=== PATIENT | female | born 1950 | race Caucasian/White ===

== ENCOUNTER 2019-05-15 10:19 | Outpatient (CLI) | payer MEDICARE, SELFPAY ==
--- NOTE | ~2019-05-15 | MM_ITS ---
EXAMINATION: MM screening [facility] BI w mynor HISTORY: Screening mammogram TECHNIQUE: Craniocaudal and mediolateral oblique 3-D tomosynthesis images were obtained and synthetic 2-D images were generated. CAD analysis was submitted and interpreted. COMPARISON: Comparison to multiple prior studies sequentially, with oldest reviewed study dated 03/2016. BREAST PARENCHYMAL COMPOSITION: There are scattered areas of fibroglandular density. FINDINGS: There is no evidence of suspicious mass, calcification, or architectural distortion to sugg est malignancy in either breast. There has been no suspicious interval change. IMPRESSION: 1. No mammographic evidence of malignancy. 2. Recommend routine screening mammography in one year. BI-RADS Category 1: Negative Reviewed, dictated and finalized at location A. OILER
== END 2019-05-15 10:20 | disposition home or self-care (01) ==
LOC: ANHIMG 10:24
PROVIDERS: PCP Internal Medicine; Visit Provider Internal Medicine
DX: Z12.31 Encounter for screening mammogram for malignant neoplasm of breast (principal)
CPT/HCPCS: 77063; 77067

== ENCOUNTER 2020-05-17 09:46 | Outpatient (CLI) | payer MEDICARE, SELFPAY ==
--- NOTE | ~2020-05-17 | MM_ITS ---
EXAMINATION: MM screening [facility] BI w mynor HISTORY: Screening mammogram TECHNIQUE: Craniocaudal and mediolateral oblique 3-D tomosynthesis images were obtained and synthetic 2-D images were generated. CAD analysis was submitted and interpreted. COMPARISON: May 15, 2019, May 02, 2018, April 26, 2017 bilateral digital screening mammogr am examinations BREAST PARENCHYMAL COMPOSITION: The breasts are almost entirely fatty. FINDINGS: There is no evidence of suspicious mass, calcification, or architectural distortion to sugg est malignancy in either breast. There has been no suspicious interval change. IMPRESSION: 1. No mammographic evidence of malignancy. 2. Recommend routine screening mammography in one year. BI-RADS Category 1: Negative Reviewed, dictated and finalized at location A. RESCENT SOLUTION MIXER
== END 2020-05-17 09:47 | disposition home or self-care (01) ==
LOC: ANHIMG 09:48
PROVIDERS: PCP Internal Medicine; Visit Provider Internal Medicine
DX: Z12.31 Encounter for screening mammogram for malignant neoplasm of breast (principal)
CPT/HCPCS: 77063; 77067

== ENCOUNTER 2021-08-09 15:04 | Outpatient (CLI) | payer MEDICARE, SELFPAY ==
--- NOTE | ~2021-08-09 | MM_ITS ---
EXAMINATION: MM screening [facility] BI w mynor HISTORY: Screening mammogram TECHNIQUE: Craniocaudal and mediolateral oblique 3-D tomosynthesis images were obtained and synthetic 2-D images were generated. CAD analysis was submitted and interpreted. COMPARISON: 05/17/2020, 05/15/2019 BREAST PARENCHYMAL COMPOSITION: There are scattered areas of fibroglandular density. FINDINGS: Scattered benign-appearing calcifications are present. There is no suspicious mass, calcifi cation, or architectural distortion to suggest malignancy in either breast. There has been no suspici ous interval change. IMPRESSION: 1. No mammographic evidence of malignancy. 2. Recommend routine screening mammography in one year. BI-RADS Category 2: Benign finding(s). Reviewed, dictated and finalized at location A.
== END 2021-08-09 15:05 | disposition home or self-care (01) ==
PROVIDERS: PCP Internal Medicine; Visit Provider Internal Medicine
DX: Z12.31 Encounter for screening mammogram for malignant neoplasm of breast (principal)
CPT/HCPCS: 77063; 77067

== ENCOUNTER 2021-08-20 20:07 | Emergency (ER) | payer MEDICARE, SELFPAY ==
[2021-08-20] VITALS (16 sets, daily range): BP systolic 132–173; BP diastolic 45–69; PULSE 71–88; RESP 12–24; TEMP 36.6; O2SAT 96–100
--- NOTE | ~2021-08-20 | XR_ITS ---
XR chest 2V 08/20/2021 21:02 Indication: Midsternal chest pain Procedure: 2 view chest Comparison: No prior studies for comparison. Findings: There is a large gastric air-fluid level. There are multiple small bowel air-fluid levels i n the upper abdomen. There are cholecystectomy clips. There are left basilar infiltrates. There is ca lcified granuloma right mid thorax. Heart size normal. No edema or pneumothorax. Impression: 1: Left basilar infiltrates may represent atelectasis and/or pneumonia. 2: Multiple air-fluid levels of the stomach and proximal small bowel. Considerations include ileus a nd partial small bowel obstruction, although incompletely visualized. Reviewed, dictated and finalized at location A. Impression: 1: Left basilar infiltrates may represent atelectasis and/or pneumonia. 2: Multiple air-fluid levels of the stomach and proximal small bowel. Consider ations include ileus and partial small bowel obstruction, although incompletely visualized.
--- NOTE | 2021-08-20 20:46 | ECG_ITS ---
Measurements Intervals [place] Rate: 78 P: 25 WV: 163 QRS: -16 QRSD: 92 T: 57 QT: 353 QTc: 403 Interpretive Statements SINUS RHYTHM BORDERLINE ST-T WAVE ABNORMALITY- LAT/HIGH LAT LEADS INFERIOR INFARCT, AGE INDETERMINATE BASELINE ARTIFACT- I, III, AVR, AVL ABNORMAL ECG Electronically Signed On 08-21-2021 6:31:50 CDT by Apollo Montaño D.O.
--- NOTE | 2021-08-20 20:55 | ED.CHESTPAIN ---
HPI - Chest Pain General Chief Complaint: Chest Pain Stated Complaint: chest pain, radiates down right arm Time Seen by Provider: 08/20/21 20:39 Source: patient History of Present Illness HPI narrative: Patient presents with chest pain. Reports that her chest pain started around 6 PM this evening lasted approximately 10 minutes and then resolved. She said it was an ache pain that radiated to her right arm there are no clear aggravating or alleviating factors. It was associated with shortness of breath denies any nausea vomiting or diaphoresis. Reports she is currently without any symptoms. She has been in her usual state of health prior to this evening denies any recent fevers cough, congestion. Denies any urinary symptoms. Related Data Allergies Allergy/AdvReac Type Severity Reaction Status Date / Time acetaminophen Allergy Unknown Unverified 08/27/14 15:30 adhesive Allergy Unknown Unverified 08/27/14 15:30 lisinopril Allergy Unknown Unverified 08/27/14 15:30 propoxyphene Allergy Unknown Unverified 08/27/14 15:30 Review of Systems Review of Systems: CONSTITUTIONAL: Denies fever, chills, or sweats. EYES: Denies visual changes, redness, or discharge. ENT: Denies rhinorrhea, congestion, sore throat, or otalgia. CARDIOVASCULAR: Denies palpitations, or edema. RESPIRATORY: Denies cough GASTROINTESTINAL: Denies abdominal pain, nausea, vomiting, or diarrhea. GENITOURINARY: Denies dysuria or hematuria. SKIN: Denies rash or itching. MUSCULOSKELETAL: Denies back pain, joint pain, or myalgia. NEUROLOGIC: Denies headache, numbness, dizziness, or weakness. PSYCHIATRIC: Denies anxiety or depression. All systems reviewed & are unremarkable except as noted in HPI and below Exam Narrative: GENERAL: Well-appearing, well-nourished, and in no acute distress. HEAD: Normocephalic, atraumatic. EYES: PERRLA and EOMI. ENT: Nares clear, no rhinorrhea or epistaxis. Mucous membranes moist. NECK: Supple. No masses. No JVD CHEST: Clear to auscultation. No respiratory distress. No wheezes rales or rhonchi HEART: Regular rate and rhythm. No murmur heard. Normal peripheral pulses. ABDOMEN: Soft, nontender, nondistended, normal active bowel sounds. EXTREMITIES: Normal range of motion. No edema. SKIN: Warm, dry, no rash. NEURO: No focal deficits. Alert and oriented x3. PSYCH: Normal mood and affect. Course Reevaluation(s) Reevaluation #1: Patient remains asymptomatic is requesting go home. Work-up was reviewed with the patient and given negative work-up continue outpatient valuation PCM is reasonable. Patient comes outpatient plan. Date: 08/21/21 Time: 00:52 Vital Signs Vital signs: Vital Signs Temperature 36.6 C 08/20/21 20:13 Pulse Rate 79 08/20/21 20:13 Respiratory Rate 18 08/20/21 20:13 Blood Pressure 164/63 H 08/20/21 20:13 Pulse Oximetry 100 08/20/21 20:13 Oxygen Delivery Room Air 08/20/21 20:13 Temperature 36.6 C 08/20/21 20:13 Pulse Rate 75 08/21/21 01:01 Respiratory Rate 18 08/21/21 01:01 Blood Pressure 118/49 L 08/21/21 01:01 Pulse Oximetry 98 08/21/21 01:01 Oxygen Delivery Room Air 08/20/21 20:13 MDM - Chest Pain MDM Narrative Medical decision making narrative: H&P as above, vss, pt looks clinically well, exam with clear lungs, labs clinic unremarkable to include delta troponin, img without acute process, additional labs/img considered, symptomatic relief available as needed, on reevaluation pt continues to looks clinically well. Symptoms remain unclear etiology however given brief duration and negative delta troponin low concern for ACS PE dissection pneumothorax pneumonia. plan to tx/monitor as op w/ pcm f/u findings/plan discussed with pt, pt agree/comfortable with plan, return precautions given Lab Data Result diagrams: 08/20/21 20:47 08/20/21 21:41 Labs: Lab Results 08/20/21 08/20/21 08/20/21 Range/Units 20:47 20:47 21:41 WBC 8.6 (4
[2021-08-20 20:56] LABS: Basophils Percent Auto 0.3 % (0.2-1.2); Hematocrit 41.8 % (37.0-47.0); Hemoglobin 12.9 g/dL (12.0-15.0); Immature Granulocyte Absolute 0.02 K/mm3 (0.00-0.031); Immature Granulocyte Percent A 0.2 % (0-0.5); Lymphocytes Absolute Auto 1.86 K/mm3 (0.9-3.2); Lymphocytes Percent Auto 21.7 % (18.3-44.2); Mean Corpuscular HGB Conc 30.9 g/dl (32-36); Mean Corpuscular Hemoglobin 28.5 pg (26-34); Mean Corpuscular Volume 92.3 fl (80-100); Mean Platelet Volume 10.4 fl (7.4-10.4); Monocytes Absolute Auto 0.4 K/mm3 (0.1-0.6); Neutrophils Absolute Auto 6.3 K/mm3 (1.3-6.7); Neutrophils Percent Auto 72.8 % (45.5-73.1); Platelet Count Result 265 k/mm3 (150-375); Red Blood Count 4.53 M/mm3 (4.2-5.4); White Blood Count 8.6 K/mm3 (4.5-10.0)
[2021-08-20 21:06] LABS: INR 2.4; Prothrombin Time 25.7 Seconds (11.1-14.7)
[2021-08-20 21:08] LABS: Partial Thromboplastin Time 74.1 SECONDS (22.3-36.8)
[2021-08-20 21:14] LABS: Troponin I < 0.012 ng/mL (0.000-0.034)
[2021-08-20 22:12] LABS: Alanine Aminotransferase 21 U/L (6-35); Albumin Level 3.8 g/dL (3.5-5.1); Alkaline Phosphatase 80 U/L (38-126); Anion Gap 6 mmol/L (8-16); Aspartate Amino Transferase 43 U/L (14-36); Bilirubin,Total 0.2 mg/dL (0.2-1.3); Blood Urea Nitrogen 27 mg/dL (7-17); Calcium 9.3 mg/dL (8.4-10.2); Carbon Dioxide 28 mmol/L (22-30); Chloride 105 mmol/L (98-107); Estimated CRCL calculation 35 ml/min; Estimated Glomerular Filt Rate 40; Glucose 104 mg/dL (65-110); Potassium 5.1 mmol/L (3.4-5.0); Sodium 139 mmol/L (137-145)
[2021-08-20 22:33] LABS: Lipase 207 U/L (23-300)
[2021-08-21 00:33] LABS: Troponin I < 0.012 ng/mL (0.000-0.034)
[2021-08-21 01:01] VITALS: BP 118/49; PULSE 75; RESP 18; O2SAT 98
== END 2021-08-21 01:00 | disposition home or self-care (01) ==
PROVIDERS: Emergency Provider Emergency Medicine; PCP Internal Medicine
DX: R07.9 Chest pain, unspecified (principal); R94.31 Abnormal electrocardiogram [ECG] [EKG]; R91.8 Other nonspecific abnormal finding of lung field; R93.5 Abnormal findings on diagnostic imaging of other abdominal regions, including retroperitoneum
CPT/HCPCS: 36415; 71046; 80053; 83690; 84484; 85025; 85610; 85730; 93005; 99284

== ENCOUNTER 2022-07-31 15:31 | Outpatient (CLI) | payer MEDICARE, SELFPAY ==
--- NOTE | ~2022-07-31 | MM_ITS ---
EXAMINATION: MM screening [facility] BI w mynor HISTORY: Screening mammogram TECHNIQUE: Craniocaudal and mediolateral oblique 3-D tomosynthesis images were obtained and synthetic 2-D images were generated. CAD analysis was submitted and interpreted. COMPARISON: 08/09/2021, 05/17/2020, 05/15/2019 BREAST PARENCHYMAL COMPOSITION: The breasts are almost entirely fatty. FINDINGS: No suspicious mass, calcification, or architectural distortion are identified in either paolo ast to suggest malignancy. There has been no suspicious interval change. IMPRESSION: 1. No mammographic evidence of malignancy. 2. Recommend routine screening mammography in one year. BI-RADS Category 1: Negative Reviewed, dictated and finalized at location A.
== END 2022-07-31 15:32 | disposition home or self-care (01) ==
LOC: ANHIMG 15:34
PROVIDERS: PCP Internal Medicine; Visit Provider Internal Medicine
DX: Z12.31 Encounter for screening mammogram for malignant neoplasm of breast (principal)
CPT/HCPCS: 77063; 77067

== ENCOUNTER 2023-08-04 13:39 | Outpatient (CLI) | payer MEDICARE, SELFPAY ==
--- NOTE | ~2023-08-04 | MM_ITS ---
EXAMINATION: MM screening [facility] BI w mynor HISTORY: Screening mammogram TECHNIQUE: Craniocaudal and mediolateral oblique 3-D tomosynthesis images were obtained and synthetic 2-D images were generated. CAD analysis was submitted and interpreted. COMPARISON: 07/31/2022, 08/09/2021 bilateral screening mammogram examinations BREAST PARENCHYMAL COMPOSITION: The breasts are almost entirely fatty. FINDINGS: There is no evidence of suspicious mass, calcification, or architectural distortion to sugg est malignancy in either breast. There has been no suspicious interval change. IMPRESSION: 1. No mammographic evidence of malignancy. 2. Recommend routine screening mammography in one year. BI-RADS Category 1: Negative Reviewed, dictated and finalized at location A.
== END 2023-08-04 13:40 | disposition home or self-care (01) ==
LOC: ANHIMG 13:44
PROVIDERS: PCP Internal Medicine; Visit Provider Internal Medicine
DX: Z12.31 Encounter for screening mammogram for malignant neoplasm of breast (principal)
CPT/HCPCS: 77063; 77067

== ENCOUNTER 2024-01-29 12:38 | Emergency (ER) | payer OTHER, SELFPAY ==
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
[2024-01-29 12:49] VITALS: BP 152/66; PULSE 84; RESP 16; TEMP 36.3; O2SAT 98
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
== END 2024-01-29 14:49 | disposition home or self-care (01) ==
PROVIDERS: Emergency Provider Emergency Medicine; PCP Internal Medicine
DX: S89.92XA Unspecified injury of left lower leg, initial encounter (principal); S89.91XA Unspecified injury of right lower leg, initial encounter; N18.9 Chronic kidney disease, unspecified; M32.9 Systemic lupus erythematosus, unspecified; Z96.653 Presence of artificial knee joint, bilateral; Z85.810 Personal history of malignant neoplasm of tongue; Z90.49 Acquired absence of other specified parts of digestive tract; V49.50XA Passenger injured in collision with unspecified motor vehicles in traffic accident, initial encounter
CPT/HCPCS: 73564; 99284

== ENCOUNTER 2024-08-10 09:34 | Outpatient (CLI) | payer MEDICARE, SELFPAY ==
--- NOTE | ~2024-08-10 | MM_ITS ---
EXAMINATION: MM screening [facility] BI w mynor HISTORY: Screening TECHNIQUE: Craniocaudal and mediolateral oblique 3-D tomosynthesis images were obtained and synthetic 2-D images were generated. CAD analysis was submitted and interpreted. COMPARISON: Comparison to multiple prior studies sequentially, with oldest reviewed study dated 11/2018. BREAST PARENCHYMAL COMPOSITION: Not dense: There are scattered areas of fibroglandular density. FINDINGS: There is no evidence of suspicious mass, calcification, or architectural distortion to sugg est malignancy in either breast. There has been no suspicious interval change. IMPRESSION: 1. No mammographic evidence of malignancy. 2. Recommend routine screening mammography in one year. BI-RADS Category 1: Negative Reviewed, dictated and finalized at location B.
--- OUTSIDE RECORDS SUMMARY | 2024-08-10 09:46 | XMS_ITS | CONTINUITY OF CARE DOCUMENT ---
Author Name víctorvíctor Address Unknown Organization [facility] Address [id number] [place] [address] [address] [place] [address] Phone [phone] Care Team Providers Care Bricklayer Sewer Name Role Phone Gamal Richardson MD Unavailable Rachana DIAZ, Prema Unavailable OMAR HARRIS MD Unavailable [phone] INSURANCE PROVIDERS Payer name Policy type / Coverage type [place] red green party ID [employer] Commercial insuran ce company [id number] [place] [employer] Medicare [id number] SELF PAY
== END 2024-08-10 09:35 | disposition home or self-care (01) ==
LOC: ANHIMG 09:37
PROVIDERS: PCP Internal Medicine; Visit Provider Internal Medicine
DX: Z12.31 Encounter for screening mammogram for malignant neoplasm of breast (principal)
CPT/HCPCS: 77063; 77067

== ENCOUNTER 2025-02-28 17:41 | Outpatient (CLI) | payer MEDICARE, SELFPAY | END 2025-02-28 17:42 | disposition home or self-care (01) | LOC: ANHLAB 17:42 | PROVIDERS: PCP Internal Medicine; Visit Provider Internal Medicine | DX: D68.62 Lupus anticoagulant syndrome (principal) | CPT/HCPCS: 36415 ==

== ENCOUNTER 2025-03-01 17:32 | Outpatient (CLI) | payer MEDICARE, SELFPAY ==
[2025-03-01 18:01] LABS: INR 1.6; Prothrombin Time 18.9 Seconds (11.1-14.7)
--- OUTSIDE RECORDS SUMMARY | 2025-03-01 19:07 | XMS_ITS | Encounter Summary ---
Author Organization [facility] Care Team Providers Care Staffing Specialist Name Role Phone Kasi Moya MD Primary Care Provider + Tre Alvarado MD Primary Care Provider +1-3 Kasi Moya MD Primary Care Provider + Tre Alvarado MD Primary Care Provider +1-3 Kasi Moya MD Primary Care Provider + Tre Alvarado MD Primary Care Provider +1-3 Kasi Moya MD Primary Care Provider + Tre Alvarado MD Primary Care Provider +1-3 Kasi Moya MD Primary Care Provider + Tre Alvarado MD Primary Care Provider +1-3 aKsi Moya MD Primary Care Provider + Tre Alvarado MD Primary Care Provider +1- Kasi Moya MD Primary Care Provider + Tre Alvarado MD Primary Care Provider +1-3 Kasi Moya MD Primary Care Provider + Martin Mccarthy MD Unavailable Judit Matthews LPN Unavailable [phone] Edel Luz Primary Care Provide r Kasi Moya MD Primary Care Provider + Encounter Details Date Type Department Care Team (Latest Contact Info) Description 03/28/2016 Orders Only [facility]IN[facility] ProviderRajendra MD [address] [place] [id number] Social History Tobacco Use Types Packs/Day Years Used Date Smoking Tobacco: Never Assessed Comments Unknown Sex and Gender Information Value Date Recorded Sex Assigned at Not on file Legal Sex Female 8:09 PM ARTISTIC ASSOCIATE Gender Identity Not on file Sexual Orientation Not on file documented as of this encounter Plan of Treatment Not on file documented as of this encounter Procedures Procedure Name Priority Date/Time Associated Diagnosis Comments SCAN - LABS 03/28/2016 12:00 AM ARTISTIC ASSOCIATE documented in this encounter Results * SCAN - LABS (03/28/2016 12:00 AM ARTISTIC ASSOCIATE) Narrative 03/28/2016 12:00 AM ARTISTIC ASSOCIATE Ordered by an unspecified provider. Historical Provider Final Res ult documented in this encounter Visit Diagnoses Not on filedocumented in this encounter Additional Health Concerns Infection Onset Date Last Indicated Resolved Time COVID: Suspected Comment:Removed after ID review. 07/11/2019 Norris Patterson 07/08/2019 07/08/2019 07/11/2019 9:38 AM C DT COVID: Suspected Comment:ID/IP Review - Isolation precautions have been cleared. Nehal March, FURNACE REPAIRER 07/09/2019 07/09/2019 07/09/2019 0 6:43 AM CDT COVID: Suspected 10/24/2022 10/24/2022 10/24/2022 10:49 AM CDT documented as of this encounter Care Teams Staffing Specialist Relationship Specialty Start Date End Date Kasi Moya MD [address] [place] [address] PCP - General 07/29/16 10/01/16 Tre Alvarado MD [address] [place] [address] PCP - General 10/02/16 10/07/16 Kasi Moya MD [address] [place] [address] PCP - General 10/08/16 11/26/16 Tre Alvarado MD [address] [place] [address] PCP - General 11/27/16 12/04/16 Kasi Moya MD [address] [place] [address] PCP - General 12/05/16 01/05/17 Tre Alvarado MD [address] [place] [address] PCP - General 01/06/17 01/06/17 Kasi Moya MD [address] [place] [address] PCP - General 01/07/17 02/25/17 Tre Alvarado MD [address] [place] [address] PCP - General 02/26/17 03/18/17 Kasi Moya MD [address] [place] [address] PCP - General 03/19/17 03/30/17 Tre Alvarado MD [address] [place] [address] PCP - General 03/31/17 04/02/17 Kasi Moya MD [address] [place] [address] PCP - General 04/03/17 04/03/17 Tre Alvarado MD [address] [facility] [address] [place] [address] PCP - General 04/04/17 04/07/17 Kasi Moya MD [address] [place] [address] PCP - General 04/08/17 07/03/17 Tre Alvarado MD [address] [facility] [address] [place] [address] PCP - General 07/04/17 08/12/17 Kasi Moya MD [address] [place] [address] PCP - General 08/13/17 09/09/19 Edel Luz PA [address] [place] [address] PCP - General 09/10/19 09/20/19 Kasi Moya MD [address] [place] [address] PCP - General Internal Medicine 09/21/19 Martin Mccarthy MD [id number] [place] [address] Referring Physician Transplant 09/09/18 Judit Matthews, ADOBE FLEX DEVELOPER [id number] [place] [address] Electronics Computer Mechanic 07/12/19 07/12/19 documented as of this encounter
--- OUTSIDE RECORDS SUMMARY | 2025-03-01 19:07 | XMS_ITS | Encounter Summary ---
Author Organization [facility] Healthcare Address [address] [place] [address] Care Team Providers Care Fisher Mussel Name Role Phone Kasi Moya MD Primary Care Provider + Martin Mccarthy MD Unavailable [phone] Judit Matthews LPN Unavailable [phone] Edel Luz Primary Care Provide r Kasi Moya MD Primary Care Provider + Encounter Details Date Type Department Care Team (Late st Contact Info) Description 07/08/2019 Documentation [facility] [address] [place] [address] Kunal Jean, ES Social History Tobacco Use Types Packs/Day Years Used Date Smoking Tobacco: Never Smokeless Tobacco: Never Alcohol Use Standard Drinks/Week Comments No 0 (1 standard drink = 0.6 oz pur e alcohol) PHQ-2 Answer Date Recorded PHQ-2 Score 0 11/12/2018 Comments Unknown Sex and Gender Information Value Date Recorded Sex Assigned at Not on file 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 Gender Identity Not on file Sexual Orientation Not on file documented as of this encounter Functional Status * Question Answer Date of Assessment Author MAP (mmHg) 98 07/11/2019 11:00 PM Judit Pizarro RN * Question Answer Date of Assessment Author BP Location Right arm 07/11/2019 11:00 PM Judit Pizarro RN BP Method Automatic 07/11/2019 11:00 PM Judit Pizarro RN * Castellano Fall Risk Question Answer Date of Assessment Author History of Falling 0 07/11/2019 8:00 PM Judit Marie RN Secondary Diagnosis 15 07/11/2019 8:00 PM Judit Weinberg RN Ambulatory Aids 0 07/11/2019 8:00 PM Judit Duong RN Intravenous Therapy/Heparin/Saline Lock 20 07/11/2019 8:00 PM Judit Marie RN Gait/Transferring 0 07/11/2019 8:00 PM Judit Marie RN Mental Status 15 07/11/2019 8:00 PM Judit Pizarro RN Auto Low/High - if selected proceed to interventions (retired) High risk-per unit/hospital protocol 07/11/2019 8:00 PM Judit Marie RN Castellano Fall Risk Score (Score >= 45 places fall precaution order) 50 07/11/2019 8:00 PM Judit Marie RN * Prabhjot Scale Question Answer Date of Assessment Author Sensory Perceptions 1 07/11/2019 8:00 PM Judit Weinberg RN Moisture 3 07/11/2019 8:00 PM Judit Marie RN Activity 1 07/11/2019 8:00 PM Judit Marie RN Mobility 1 07/11/2019 8:00 PM Judit Marie RN Nutrition 3 07/11/2019 8:00 PM Judit Marie RN Friction and Shear 1 07/11/2019 8:00 PM Judit Marie RN Prabhjot Scale Score 10 07/11/2019 8:00 PM Judit Marie RN * Fall Risk Interventions Question Answer Date of Assessment Author All Low Fall Interventions Applied No 07/11/2019 8:00 PM Judit Marie RN All Low Fall Interventions EXCEPT: Encourage to call for assistance;Call light in reach 07/11/2019 8:00 PM Judit Marie RN All Moderate Fall Interventions Applied No 07/11/2019 8:00 PM Judit Marie RN All Moderate Fall Risk Interventions EXCEPT: Gait belt at bedside;Remain with patient while toileting 07/11/2019 8:00 PM Judit Marie RN All High Fall Risk Interventions Applied No 07/11/2019 8:00 PM Judit Marie RN All High Risk Interventions EXCEPT: Bed alarm;Chair alarm 07/11/2019 8:00 PM Judit Marie RN Additional Interventions Applied Constant observation 07/11/2019 8:00 PM Judit Marie RN Reason For Exception(s) pt unable to use 020 8:00 PM Judit Marie RN Reason For Exception(s) bed rest and martinez 07/10 8:00 PM Judit Marie RN Reason For Exception(s) pt doesnt attemp t to exit bed 07/11/2019 8:00 PM Judit Marie RN * B.M.A.T. - Bedside Mobility Assessment Tool for Nurses Question Answer Date of Assessment Author Is patient able to participate in the BMAT? No 07/11/2019 6:00 PM Jackson Marie RN Reason patient is unable to participate in BMAT Inability to follow directions;Bed rest orders 07/11/2019 6:00 PM Jackson Marie RN BMAT Level Level 1 - Red 07/11/2019 6:00 PM Jackson Pizarro RN Level 1 Equipment Use friction reducin g devices 07/11/2019 6:00 PM Jackson Marie RN * Pressure Injury Prevention Question Answer Date of Assessment Author Pressure Ulcer Prevention Interventions Keep skin clean and dry (Sensory Perception/Moisture);U se pillows/wedge for positioning (Activity/Mobility) 07/11/2019 8:00 AM Jackson Marie RN Protective Foam Dressing Location Coccyx 07/10/2019 7:00 PM Rita Brewer RN * Integumentary Question Answer Date of Assessment Author Skin Color Appropriate for ethnicity 07/11/2019 8:00 PM Judit Marie RN Skin Condition/Temp Warm;Dry 07/11/2019 8 :00 PM Judit Marie RN Skin Integrity Other (Comment) 07/11/2019 8:00 AM Jackson Marie RN Skin Turgor Non-tenting 07/11/2019 8:00 PM Judit Marie RN Integumentary Additional Assessments Yes-Prabhjot 07/11/2019 8:00 PM Judit Marie RN Integumentary (WDL) X 07/11/2019 8 :00 PM Judit Marie RN Skin Location Right upper neck & LUE 0 8:00 PM Judit Marie RN * Question Answer Date of Assessment Author BP Location Right arm 07/11/2019 11:00 PM Judit Pizarro RN BP Method Automatic 07/11/2019 11:00 PM Judit Pizarro RN * Question Answer Date of Assessment Author LUE Edema No pitting 07/11/2019 8:00 AM Jackson Marie RN Edema Left upper extremity 07/11/2019 8:00 AM C DT Jackson Townsend, ES * Question Answer Date of Assessment Author Bed In Lowest Position Yes 07/11/2019 10:00 P M Judit Marie RN Bed Wheels Locked Yes 07/11/2019 10:00 PM Judit Marie RN * Fall Risk Interventions Question Answer Date of Assessment Author All Low Fall Interventions Applied No 07/11/2019 8:00 PM Judit Marie RN All Low Fall Interventions EXCEPT: Encourage to call for assistance;Call light in reach 07/11/2019 8:00 PM Judit Marie RN All Moderate Fall Interventions Applied No 07/11/2019 8:00 PM Judit Marie RN All Moderate Fall Risk Interventions EXCEPT: Gait belt at bedside;Remain with patient while toileting 07/11/2019 8:00 PM Judit Marie RN All High Fall Risk Interventions Applied No 07/11/2019 8:00 PM Judit Marie RN All High Risk Interventions EXCEPT: Bed alarm;Chair alarm 07/11/2019 8:00 PM Judit Marie RN Additional Interventions Applied Constant observation 07/11/2019 8:00 PM CDT Judit Townsend, ES Reason For Exception(s) pt unable to use 020 8:00 PM CDT Judit Townsend RN Reason For Exception(s) bed rest and martinez 07/10 8:00 PM NAINT Judit Townsend RN Reason For Exception(s) pt doesnt attemp t to exit bed 07/11/2019 8:00 PM CDT Judit Townsend RN * Question Answer Date of Assessment Author Skin Care Protective Foam Dressing 07/10/2019 7:00 PM Rita Brewer RN Hygiene Martinez care;Ariadna care 07/10/2019 7:00 PM C Rita Eason RN Oral Care Mouth swabbed 07/10/2019 7:00 PM Rita Márquez RN * ADL Screening Question Answer Date of Assessment Author Patient's Vision Adequate to Safely Complete Daily Activities Unable to assess 07/09/2019 5:00 PM Shital Charles NP Patient's Judgement Adequate to Safely Complete Daily Activities Unable to assess 07/09/2019 5:00 PM Carlo Charles NP Patient's Memory Adequate to Safely Complete Daily Activities Unable to assess 07/09/2019 5:00 PM Shital Charles NP Patient Able to Express Needs/Desires Unable to assess 07/09/2019 5:00 PM Shital Charles NP Dressing Unable to assess 07/09/2019 5:00 PM CDT Shital Posadas NP Grooming Unable to assess 07/09/2019 5:00 PM NAINT Shital Posadas NP Feeding Unable to assess 07/09/2019 5:00 PM NAINT Shital Posadas NP Bathing Unable to assess 07/09/2019 5:00 PM NAINT Shital Posadas NP Toileting Unable to assess 07/09/2019 5:00 PM NAINT Shital Posadas NP In/Out Bed Unable to assess 07/09/2019 5:00 PM NAINT Shital Posadas NP Walks in Home Unable to assess 07/09/2019 5:00 PM Shital Charles NP Weakness of Legs Unable to assess 07/09/2019 5:00 PM Shital Patel NP Weakness of Arms/Hands Unable to assess 07/09/2019 5:0 0 PM Shital Charles NP Hearing - Right Ear Functional 07/09/2019 5:00 PM Shital Ferrara NP Hearing - Left Ear Functional 07/09/2019 5:00 PM Shital Charles NP Dominant hand? Right 07/09/2019 5:00 PM Shital Vela NP Decline in ADLs in last 2 weeks? No 07/09/2019 5:00 PM Shital Charles NP * Therapy Consults Question Answer Date of Assessment Author PT Evaluation Needed 1 07/09/2019 5:00 PM Shital Patel NP OT Evaluation Needed 1 07/09/2019 5:00 PM Shital Patel NP CANE PACKER Evaluation Needed 1 07/09/2019 5:00 PM Shital Charles NP * Assistive Devices Question Answer Date of Assessment Author Assistive Devices/DME None 07/09/2019 5:00 PM Shital Charles NP documented as of this encounter Mental Status * Question Answer Entry Date Author Level of Consciousness Responds to pain; Responds to stimulation 07/11/2019 8:00 PM Judit Marie RN Orientation Unable to assess 07/11/2019 8:00 PM Judit Marie RN * Question Answer Entry Date Author Neuro (WDL) X 07/11/2019 8:00 PM Judit Marie RN * Question Answer Entry Date Author Feature 1: Acute Onset or Fluctuating Course Negative 07/09/2019 12:25 AM Katie Lutz NP Overall CAM-ICU Negative 07/09/2019 12:25 AM Katie Lutz NP documented in this encounter Plan of Treatment Not on file documented as of this encounter Visit Diagnoses Not on filedocumented in this encounter Additional Health Concerns Infection Onset Date Last Indicated Resolved Time COVID: Suspected Comment:Removed after ID review. 07/11/2019 Norris Celestinhoney 07/08/2019 07/08/2019 07/11/2019 9:38 AM C DT COVID: Suspected Comment:ID/IP Review - Isolation precautions have been cleared. Nehal March, HUMAN PERFORMANCE PROFESSOR 07/09/2019 07/09/2019 07/09/2019 0 6:43 AM CDT COVID: Suspected 10/24/2022 10/24/2022 10/24/2022 10:49 AM CDT documented as of this encounter Care Teams Fisher Mussel Relationship Specialty Start Date End Date Kasi Moya MD [address] [place] [address] PCP - General 08/13/17 09/09/19 Edel Luz PA [address] [place] [address] PCP - General 09/10/19 09/20/19 Kasi Moya MD [address] [place] [address] PCP - General Internal Medicine 09/21/19 Martin Mccarhty MD [address] [facility] [address] [place] [id number] Referring Physician Transplant 09/09/18 Judit Matthews LPN [address] [facility] [address] [place], [place] [id number] [place] [address] Buyer Agent 07/12/19 07/12/19 documented as of this encounter
--- OUTSIDE RECORDS SUMMARY | 2025-03-01 19:08 | XMS_ITS | Encounter Summary ---
Author Organization [facility] Healthcare Address [address] [place] [address] Care Team Providers Care R&D Engineer Name Role Phone Martin Mccarthy MD Unavailable [phone] Kasi Moya MD Primary Care Provider + Encounter Details Date Type Department Care Team (Late st Contact Info) Description 02/28/2025 Telephone [facility] HH Scheduling [address] [place] [address] Sherry Peres RN Social History Tobacco Use Types Packs/Day Years Used Date Smoking Tobacco: Never Smokeless Tobacco: Never Alcohol Use Standard Drinks/Week Comments No 0 (1 standard drink = 0.6 oz pur e alcohol) AUDIT-C Answer Date Recorded Q1: How often do you have a drink containing alcohol? Never 08/19/2024 Q2: How many drinks containi ng alcohol do you have on a typical day when you are drinking? Patient does not drink Q3: How often do you have si x or more drinks on one occasion? Never 08/19/2024 PHQ-2 Answer Date Recorded PHQ-2 Total Score (If total score is 3 or more points, staff should administer the PHQ-9) 0 08/19/2024 Social Connection and Isolation Panel Answer Date Recorded In a typical week, how many times do you talk on the phone with family, friends, or neighbors? Three times a week 02/21/2025 How often do you get togethe r with friends or relatives? Three times a week 02/21/2025 How often do you attend chur ch or protestant services? More than 4 times per year 02/21/2025 Do you belong to any clubs o r organizations such as sabianist groups, unions, fraternal or athletic groups, or school groups? No 02/21/2025 How often do you attend meet ings of the clubs or organizations you belong to? Never 02/21/2025 Are you , , di vorced, , never , or living with a partner? Never 02/21/2025 Overall Financial Resource Strain (CARDIA) Answe r Date Recorded How hard is it for you to pa y for the very basics like food, housing, medical care, and heating? Not very hard 02/21/2025 Hunger Vital Sign Answer Date Recorded Within the past 12 months, y ou worried that your food would run out before you got the money to buy more. Never true 02/22/20 25 Within the past 12 months, t he food you bought just didn't last and you didn't have money to get more. Never true 02/21/2025 PRAPARE - Transportation Answer Date Re corded In the past 12 months, has l ack of transportation kept you from medical appointments or from getting medications? No 03/2024 In the past 12 months, has l ack of transportation kept you from meetings, work, or from getting things needed for daily living? No 02/21/2025 Housing Stability Vital Sign Answer Mark e Recorded In the last 12 months, was t here a time when you were not able to pay the mortgage or rent on time? No 02/21/2025 In the past 12 months, how m any times have you moved where you were living? 0 02/21/2025 At any time in the past 12 m [facility], were you homeless or living in a half-way (including now)? No 02/21/2025 [facility] Utilities Answer Date Recorded In the past 12 months has th e electric, gas, oil, or water company threatened to shut off services in your home? No 02/21/2025 Personal Safety Answer Date Recorded Have you ever been in or are you currently in a harmful physical or emotional relationship or is someone making you feel afraid or unsafe? 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 Call returned to Jonna, message left thatpatient is not currently on service. JONNA W/DR NILSON THOMPSON [phone] [id number] RE: PATIENT NEEDS PROTIME DRAWN. PATIENT SAYS IT IS TO BE DRAWN TODAY. CALL ME AFTER 1P. CAR MAKE READY WORKER documented in this encounter Plan of Treatment Not on file documented as of this encounter Visit Diagnoses Not on filedocumented in this encounter Care Teams R&D Engineer Relationship Specialty Start Date End Date Kasi Moya MD [address] [place] [address] PCP - General Internal Medicine 09/21/19 Martin Mccarthy MD [address] [address] Referring Physician Transplant 09/09/18 documented as of this encounter
--- OUTSIDE RECORDS SUMMARY | 2025-03-01 19:08 | XMS_ITS | Clinical Summary ---
Author Organization [facility], [facility] Address [address] [place] [address] Care Team Providers Care Bull Driver Name Role Phone Martin Mccarthy MD Unavailable Kasi Moya MD Primary Care Provider + Allergies Active Allergy Reactions Criticality Noted Date Comments Adhesive Tape-Silicones Other (See comments) Low Lisinopril Cough Low Propoxyphene N-Acetaminophen Other (See comments) Low 04/24/2016 Face gets red, itching Medications food supplemt, lactose-reduced 0.05-1.5 gram-kcal/mL liquid Take 1 Can by mouth 4 (four) times a day Pt has been getting 2-3 per 11/19/19 15 Active meclizine (ANTIVERT) 12.5 mg tablet Take 1 tablet (12.5 mg total) by mouth 3 (three) times a day as needed for dizziness 90 tablet 06/16/19 25 Active levothyroxine (SYNTHROID) 75 mcg tabletIndications :Other specified hypothyroidism TAKE 1 TABLET BY MOUTH EARLY IN THE MORNING BEFORE BREAKFAST 100 tablet 1 10/02/19 25 Active warfarin (COUMADIN) 6 mg tabletIndications :Lupus anticoagulant disorder Take 1 tablet (6 mg total) by mouth daily Hold it till next INR check if INR less than 2.5 start with 4 mg po daily 100 tablet 1 02/27/20 25 Active HYDROcodone-aceta minophen (NORCO) 5-325 mg per tabletIndications :Pain Take 1 tablet by mouth every 4 (four) hours as needed for pain 20 tablet 02/27/20 25 Active midodrine (PROAMATINE) 5 mg tabletIndications :Symptomatic Orthostatic Hypotension Take 1 tablet (5 mg total) by mouth 3 (three) times a day before meals 90 tablet 02/27/20 25 2025 Active benzonatate (TESSALON) 100 mg capsuleIndication s:Cough Take 1-2 caps every 8 hours as needed 30 capsule 07/07/19 24 2024 Discontinued(T herapy completed) diazePAM (VALIUM) 5 mg tabletIndications :Vertigo Take 1 tablet (5 mg total) by mouth every 6 (six) hours as needed for anxiety 30 tablet 10/29/19 24 2024 Discontinued(T herapy completed) warfarin (COUMADIN) 1 mg tablet TAKE 1 TABLET(1 MG) BY MOUTH DAILY 90 tablet 1 05/11/19 25 2024 Discontinued(S top Taking at Discharge) warfarin (COUMADIN) 6 mg tabletIndications :Lupus anticoagulant disorder TAKE 1 TABLET BY MOUTH DAILY 100 tablet 1 10/02/19 25 2024 Discontinued Active Problems Problem Noted Date Diagnosed Date Closed displaced intertrochanteric fracture of r ight femur 02/21/2025 Assessment & Plan (02/26/2025 2:28 PM DIABETES TERRITORY MANAGER): 02/22 POD day 1 after ORIF doing well worked with therapy, post op management as per surgery Acute blood loss anemia likely post op loss hb dropped to 7.5 will monitor closely 02/23 POD: 2 after orif smooth post op course Acute blood loss anemia: dropped hb 6.6 Will transfuse one unit of blood Check post transfusion hb 02/24 POD: 3 After ORIF for right intertrochanteric fracture Transfused one unit of blood on 02/23: post transfusion hb is 7.5, will transfuse one more unit of blood 02/25 POD: 4 After ORIF for right intertrochanteric fracture S/p transfusion of 2 units of blood. Post transfusion hb 9 INR: 3.6 will hold warfarin 02/26 Acute rehab declined Post transfusion h and h remained stable INR 3.6 and will continue to hold warfarin and check inr on Friday if less than 2.5 start 4 mg warfarin po and follow up with pcp for further adjustment Patient wanted to go home with home therapy Outpatient pt ordered Walker given Assessment & Plan (02/25/2025 11:59 AM DIABETES TERRITORY MANAGER): 12 POD day 1 after ORIF doing well worked with therapy, post op management as per surgery Acute blood loss anemia likely post op loss hb dropped to 7.5 will monitor closely 02/23 POD: 2 after orif smooth post op course Acute blood loss anemia: dropped hb 6.6 Will transfuse one unit of blood Check post transfusion hb 02/24 POD: 3 After ORIF for right intertrochanteric fracture Transfused one unit of blood on 02/23: post transfusion hb is 7.5, will transfuse one more unit of blood 02/25 POD: 4 After ORIF for right intertrochanteric fracture S/p transfusion of 2 units of blood. Post transfusion hb 9 INR: 3.6 will hold warfarin Assessment & Plan (02/24/2025 12:58 PM DIABETES TERRITORY MANAGER): 02/22 POD day 1 after ORIF doing well worked with therapy, post op management as per surgery Acute blood loss anemia likely post op loss hb dropped to 7.5 will monitor closely 02/23 POD: 2 after orif smooth post op course Acute blood loss anemia: dropped hb 6.6 Will transfuse one unit of blood Check post transfusion hb 02/24 POD: 3 After ORIF for right intertrochanteric fracture Transfused one unit of blood on 02/23: post transfusion hb is 7.5, will transfuse one more unit of blood Assessment & Plan (02/23/2025 1:24 PM DIABETES TERRITORY MANAGER): 12 POD day 1 after ORIF doing well worked with therapy, post op management as per surgery Acute blood loss anemia likely post op loss hb dropped to 7.5 will monitor closely 02/23 POD: 2 after orif smooth post op course Acute blood loss anemia: dropped hb 6.6 Will transfuse one unit of blood Check post transfusion hb Assessment & Plan (02/22/2025 2:43 PM DIABETES TERRITORY MANAGER): 02/22 POD day 1 after ORIF doing well worked with therapy, post op management as per surgery Acute blood loss anemia likely post op loss hb dropped to 7.5 will monitor closely Ground-level fall 02/21/2025 HLD (hyperlipidemia) 02/21/2025 HTN (hypertension) 02/21/2025 Chronic cerebrovascular accident (CVA) Closed right hip fracture, initial encounter 03/2024 History of throat cancer 02/21/2025 Chronic diastolic congestive heart failure 02/21 Cardiac murmur 08/19/2024 Assessment & Plan (08/19/2024 9:55 AM CDT): She has had it for years. Last Echo in 2014 showed no valvular abnormalities. Would recheck an echocardiogram Irritable bowel syndrome with diarrhea Assessment & Plan (07/07/2023 10:29 AM CDT): Onset 2 weeks ago when patient also got viral upper respiratory symptoms. No signs of colitis. No history of recent antibiotics treatment. Okay to try Imodium as needed. Age-related osteoporosis wit hout current pathological fracture 01/14/2023 Assessment & Plan (08/12/2024 7:44 AM CDT): Bone density in June of 2022 showed osteoporosis. Has history of osteonecrosis of the jaw. Saw Bone Health specialist. Continue calcium and Vit D Assessment & Plan (02/12/2024 9:59 AM DIABETES TERRITORY MANAGER): Bone density in June of 2022 showed osteoporosis. Has history of osteonecrosis of the jaw. Saw Bone Health specialist. Continue calcium and Vit D Assessment & Plan (07/31/2023 9:36 AM CDT): Bone density in June of 2022 showed osteoporosis. Has history of osteonecrosis of the jaw. Saw Bone Health specialist. Continue calcium and Vit D Assessment & Plan (01/14/2023 4:23 PM CDT): Bone density in June of 2022 showed osteoporosis. Has history of osteonecrosis of the jaw. Referred to bone health specialist at [facility] Other dysphagia 07/04/2022 Assessment & Plan (07/04/2022 10:26 AM CDT): Offered referral to speech therapy, but she declined. Facial cellulitis 07/16/2021 Assessment & Plan (07/31/2023 9:38 AM CDT): Will start cephalexin 500 mg qid for 7 days Assessment & Plan (07/16/2021 11:34 AM CDT): Left lower jaw. Unclear reason. Normal mouth exam, no dental abnormalities noted. No area of induration to suggest abscess. No enlargement or tenderness over parotid gland. Will empirically treat with antibiotic. Contact our office if no improvement after treatment, develop new symptoms or feeling worse at any point. Chronic deep vein thrombosis (DVT) 09/03/2019 Assessment & Plan (09/03/2019 2:17 PM CDT): Acute after Coumadin was held due to subarachnoid hemorrhage. Massive involving all deep veins from femoral to peroneal. Edema is improving on Coumadin alone. Will discuss with Dr. Moya on FridaySeptember 05 if patient could benefit from thrombectomy. Posterior reversible encephalopathy syndrome (ND ES) 07/27/2019 Assessment & Plan (07/29/2019 2:35 PM CDT): Patient continues to slowly improve. She is postop follow-up with neurosurgery and repeat CT scan on August 23. At this point we will continue home health, home PT, and home OT. She is mostly bedbound and has minimal movement of her hands. Encounter for Medicare annual wellness exam 01/22 Vertigo 02/05/2019 Assessment & Plan (10/29/2023 1:32 PM CDT): Meclizine not helping. Will try Valium 5 mg three times a day prn Assessment & Plan (02/05/2019 11:29 AM DIABETES TERRITORY MANAGER): Will start Meclizine 25 mg q 6 hrs prn. 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 Assessment & Plan (07/24/2018 7:09 AM CDT): BMI Follow-up includes: exercise counseling. Acquired hypothyroidism 02/11/2018 Assessment & Plan (08/12/2024 7:44 AM CDT): Stable on levothyroxine Assessment & Plan (02/10/2024 12:20 PM DIABETES TERRITORY MANAGER): Stable on levothyroxine Assessment & Plan (07/29/2023 3:35 PM CDT): Stable on levothyroxine Assessment & Plan (01/14/2023 4:22 PM CDT): Stable on levothyroxine Assessment & Plan (07/03/2022 12:52 PM CDT): Stable on levothyroxine Assessment & Plan (12/19/2021 6:56 AM CDT): Stable on levothyroxine Assessment & Plan (06/06/2021 8:39 AM CDT): Stable on levothyroxine Assessment & Plan (12/04/2020 12:27 PM CDT): Stable on levothyroxine Assessment & Plan (05/31/2020 10:41 AM DIABETES TERRITORY MANAGER): Stable on levothyroxine Assessment & Plan (11/22/2019 7:54 AM CDT): Stable on levothyroxine Assessment & Plan (02/05/2019 6:57 AM DIABETES TERRITORY MANAGER): Stable on levothyroxine Assessment & Plan (07/22/2018 3:58 PM CDT): Stable on levothyroxine H/O head and neck radiation 01/30/2018 Chronic kidney disease, stage 3 07/19/2016 Assessment & Plan (08/12/2024 7:43 AM CDT): Stable. Follows with Dr. Watson Assessment & Plan (02/10/2024 12:19 PM DIABETES TERRITORY MANAGER): Stable. Follows with Dr. Watson Assessment & Plan (07/29/2023 3:35 PM CDT): Stable. Follows with Dr. Watson Assessment & Plan (01/14/2023 4:22 PM CDT): Stable. Follows with Dr. Watson Assessment & Plan (07/03/2022 12:52 PM CDT): Stable. Follows with Dr. Watson Assessment & Plan (12/19/2021 6:56 AM CDT): Stable. Follows with Dr. Mccarthy Assessment & Plan (06/06/2021 8:37 AM CDT): Stable. Follows with Dr. Mccarthy Assessment & Plan (12/04/2020 12:26 PM CDT): Stable. Follows with Dr. Mccarthy Assessment & Plan (05/31/2020 10:41 AM DIABETES TERRITORY MANAGER): Joanne. Follows with Dr. Mccarthy Assessment & Plan (11/22/2019 7:53 AM CDT): Joanne Assessment & Plan (07/27/2019 10:19 AM CDT): Stable. Creatinine appears at baseline. Assessment & Plan (02/05/2019 6:56 AM DIABETES TERRITORY MANAGER): Stable. Patricia Mccarthy Assessment & Plan (07/22/2018 3:56 PM CDT): Stable. Patricia Mccarthy Hypertensive kidney disease, stage 1-4 or unspecified chronic kidney disease 07/19/2016 Assessment & Plan (08/12/2024 7:43 AM CDT): Stable off medication Assessment & Plan (02/10/2024 12:19 PM DIABETES TERRITORY MANAGER): Stable off medication Assessment & Plan (07/29/2023 3:34 PM CDT): Stable off medication Assessment & Plan (01/14/2023 4:21 PM CDT): Stable off medication Assessment & Plan (06/06/2021 8:37 AM CDT): Stable off medication Assessment & Plan (12/04/2020 12:26 PM CDT): Stable off medication Assessment & Plan (05/31/2020 10:40 AM DIABETES TERRITORY MANAGER): Stable off medications Assessment & Plan (11/22/2019 7:53 AM CDT): Stable off medications. Assessment & Plan (07/27/2019 10:19 AM CDT): Stable on amlodipine. And carvedilol Assessment & Plan (02/05/2019 6:56 AM DIABETES TERRITORY MANAGER): Well controlled without medication Assessment & Plan (07/22/2018 3:56 PM CDT): Well controlled without medication. technician terminal and repeater current use of anticoagulant 7 Antiphospholipid antibody syndrome 06/21/2015 Assessment & Plan (08/12/2024 7:44 AM CDT): Stable. Requires lifelong anticoagulation with Coumadin Assessment & Plan (02/10/2024 12:19 PM DIABETES TERRITORY MANAGER): Stable. Requires lifelong anticoagulation with Coumadin Assessment & Plan (07/29/2023 3:35 PM CDT): Stable. Requires lifelong anticoagulation with Coumadin Assessment & Plan (01/14/2023 4:22 PM CDT): Stable. Requires lifelong anticoagulation with Coumadin Assessment & Plan (07/03/2022 12:52 PM CDT): Stable. Requires lifelong anticoagulation with Coumadin Assessment & Plan (12/19/2021 6:56 AM CDT): Stable. Requires lifelong anticoagulation with Coumadin. Assessment & Plan (06/06/2021 8:39 AM CDT): Stable. Requires lifelong anticoagulation with Coumadin. Assessment & Plan (12/04/2020 12:26 PM CDT): Stable. Requires lifelong anticoagulation with Coumadin Assessment & Plan (05/31/2020 10:41 AM DIABETES TERRITORY MANAGER): Stable. Requires lifelong anticoagulation with Coumadin Assessment & Plan (11/22/2019 7:54 AM CDT): She requires lifelong anticoagulation with Coumadin. Assessment & Plan (09/03/2019 2:09 PM CDT): INR at goal, 3.2 2 days ago. Will continue same dose for Coumadin and INR monitoring. Lovenox was discontinued two days ago. Assessment & Plan (07/29/2019 2:36 PM CDT): Patient is post have a CT scan of the brain around August 24, 2019. If this CT is stable or shows improvement her warfarin will be re-initiated along with Lovenox bridging. Assessment & Plan (02/05/2019 6:56 AM DIABETES TERRITORY MANAGER): Continue on anticoagulation with Coumadin. Assessment & Plan (07/22/2018 3:57 PM CDT): Continue anticoagulation with Coumadin. Malignant neoplasm of tongue 01/11/2015 Assessment & Plan (08/12/2024 7:44 AM CDT): Stable. Under active surveillance with Dr. Vale and Oncology Assessment & Plan (02/10/2024 12:20 PM DIABETES TERRITORY MANAGER): Stable. Under active surveillance with Dr. Vale and Oncology Assessment & Plan (07/29/2023 3:35 PM CDT): Stable. Under active surveillance with Dr. Vale and Oncology Assessment & Plan (01/14/2023 4:22 PM CDT): Stable. Under active surveillance with Dr. Vale and Oncology Assessment & Plan (07/03/2022 12:52 PM CDT): Stable. Under active surveillance with Dr. Vale and Oncology Assessment & Plan (12/19/2021 6:58 AM CDT): Stable. Under active surveillance with Dr. Vale oncology Assessment & Plan (06/06/2021 8:38 AM CDT): Stable under active surveillance by Dr. Vale and Oncology Assessment & Plan (12/04/2020 12:26 PM CDT): Stable. Under active surveillance with Dr. Vale and Oncology Assessment & Plan (05/31/2020 10:41 AM DIABETES TERRITORY MANAGER): Stable. Under active surveillance with Dr. Vale and oncology Assessment & Plan (11/22/2019 7:55 AM CDT): Stable. Under active surveillance with Dr. Vale and Oncology. Assessment & Plan (07/27/2019 10:20 AM CDT): Stable. Under active surveillance with Dr. Vale and Oncology Assessment & Plan (02/05/2019 6:57 AM DIABETES TERRITORY MANAGER): Joanne. Active surveillance with oncology and Dr. Vale. Assessment & Plan (07/22/2018 3:58 PM CDT): Joanne. Follows with oncology and Dr. Vale Resolved Problems Problem Noted Date Diagnosed Date Resolved Date Subacute cough 10/29/2023 08/12/2024 Assessment & Plan (10/29/2023 1:31 PM CDT): Will try a medrol dosepak Viral upper respiratory infection 07/07/2023 07/29/2023 Assessment & Plan (07/07/2023 10:30 AM CDT): Lingering cough for 2 weeks. Most likely postviral. Robitussin DM not helping. Will try Tessalon Perles and prednisone taper. Acute bronchitis 10/24/2022 07/07/2023 Assessment & Plan (10/24/2022 10:47 AM CDT): COVID, influenza were negative. Will treat for bronchitis with Ceftin and Tessalon Perles. No respiratory distress. Contact our office if no improvement after treatment, develop new symptoms or feeling worse at any point. Herpes simplex labialis 07/16/202106/22 Assessment & Plan (07/16/2021 11:35 AM CDT): Onset 4 days ago with mild upper respiratory symptoms that are improving. Per patient tested negative for COVID since onset of symptoms. Will try topical antiviral cream. Pressure injury of left buttock, stage 2 07/16/2021 07/03/2022 Assessment & Plan (07/16/2021 11:36 AM CDT): No open areas or signs of cellulitis. Discussed with patient measures to alleviate pressure to affected area. Call back if will develop any signs of infection or worsening. Seizure disorder (CMS/HCC) 06/01/2020 0 12/04/2020 Assessment & Plan (06/01/2020 9:03 AM DIABETES TERRITORY MANAGER): Stable on Keppra Mass of right thigh 09/03/2019 07/04/19 23 Assessment & Plan (09/03/2019 2:07 PM CDT): Possible lipoma versus other mass. Patient was mostly concerned about possible blood clot due to history of current DVT in left lower extremity. This lesion does not appear to be vascular in nature. I discussed that ultrasound could clarify what is that. Patient will need venous Doppler of left extremity to evaluate progress of DVT treatment. We agreed that this ultrasound can be done at the same time. I will discuss this issue with Dr. Moya on FridaySeptember 05 to have more definite date. Cerebral edema 07/08/2019 09/03/2019 Overview (07/12/2019): Added automatically from request for surgery [id number] Depression screening 07/24/2018 022 Assessment & Plan (07/24/2018 7:08 AM CDT): Negative for depression H/O tongue cancer 07/30/2017 07/27/2019 Assessment & Plan (02/05/2019 6:57 AM DIABETES TERRITORY MANAGER): Stable. Follows with oncology and Dr. Vale Assessment & Plan (07/22/2018 3:58 PM CDT): Follows with oncology and Dr. Vale Risk for falls 07/19/2016 06/06/2021 Assessment & Plan (07/24/2018 7:09 AM CDT): Low risk for falls Hematoma of neck 10/12/2015 09/03/2019 Cervical lymphadenopathy 10/12/201502/2020 Hyperkalemia 11/28/2011 09/03/2019 Encounters Date Type Department Care Team Description 02/28/2025 Telephone [facility] Medicine [address] [phone] Colt Felix MD Home health 02/28/2025 Telephone [facility] Scheduling [address] [place] [address] Sherry Peres RN 02/28/2025 Orders Only [facility] [address] [place] [address] [place] [phone] Colt Felix MD Closed fracture of right hip, initial encounter (HCC) (Primary Dx) 02/28/2025 Telephone [facility] Primary Care [address] [place] [address] Kasi Moya MD Additional Services Or Orders 02/28/2025 Telephone [facility] [address] [place] [address] [place] [phone] Colt Felix MD home PT 02/21/2025 3:10 PM DIABETES TERRITORY MANAGER Anesthesia Event [facility] OR [address] [place] [phone] Dank Sibley MD 02/21/2025 3:00 PM DIABETES TERRITORY MANAGER - 02/21/2025 4:40 PM DIABETES TERRITORY MANAGER Surgery [facility] OR [address] [place] [phone] Colt Felix MD OPEN REDUCTION INTERNAL FIXATION RIGHT HIP - TROCHANTERIC NAIL 02/20/2025 11:34 PM DIABETES TERRITORY MANAGER - 02/26/2025 1:40 PM DIABETES TERRITORY MANAGER Hospital Encounter [place] [address] Med [address] [place] [id number] Floyd Lamas DO Osikoya, MD Elpidio Brian Brandon Chase, DO Bezuneh, Abraham Deneke, MD Closed right hip fracture, initial encounter (HCC) (Primary Dx); Fall, initial encounter; Chronic anticoagulation; Lupus anticoagulant disorder Discharge Disposition: Discharge to home, home health skilled care 01/27/2025 Anticoagulation Telephone Call [facility] [address] [place] [phone] Kasi Moya MD Lupus anticoagulant disorder (Primary Dx); retirement current use of anticoagulant 01/25/2025 Telephone [facility] [address] [place] [address] Kasi Moya MD Additional Services Or Orders 01/18/2025 Anticoagulation Telephone Call [facility] [address] [place] [address] Kasi Moya MD Lupus anticoagulant disorder (Primary Dx); retirement current use of anticoagulant 01/18/2025 Orders Only [facility] Primary [facility] [address] [place] [address] Kasi Moya MD 12/20/2024 Results Follow-Up [facility] Primary [facility] [address] [place] [address] Margarita Jaime MA Protime-INR 12/20/2024 Anticoagulation Telephone Call [facility] [address] [place] [address] Kasi Moya MD Lupus anticoagulant disorder (Primary Dx); technician terminal and repeater current use of anticoagulant 12/17/2024 Orders Only [facility] Primary [facility] [address] [place] [phone] Kasi Moya MD from Last 3 Months Immunizations Immunization Administration Dates Next Due COVID-19 MRNA (MODERNA) .5 M L (50 MCG) VACCINE (12 YEARS AND UP) 12/24/2022 H1N1 All Forms 03/29/2009 Influenza, Quadrivalent, Hig h Dose, Preservative Free, Intrr 12/23/2022,12/27/2021,12/29/2020,11/24 Influenza, Trivalent, High D ose, Split, Preservative Free, Intramuscular 12/25/2023,12/25/2018,12/19/2017,12/18,01/15/2015 Influenza, Trivalent, IM (MDV) 01/13/2013 Influenza, Unspecified 12/25/2018,12/27/2015, Moderna SARS-CoV-2 Monovalen t Vaccination (12+ YRS) 10/18/2021,05/11/2020 Pfizer Sars-Cov-2 Bivalent V accination (12+ YRS) 12/19/2021 Pneumococcal Conjugate PCV 13 12/18/2016 Pneumococcal Conjugate Pcv20 12/04/2021 Pneumococcal Polysaccharide PPV23 08/31/2018,11/2017 RSV Vaccine, Pref, Recombina nt, Subunit, Adjuvanted, PF, IM (Arexvy) 12/23/2022 ZOSTER Recombinant 08/31/2018,05/22/2018 Surgical History Surgery Date Site/Laterality Comments CENTRAL LINE PLACEMENT > 5 YEARS 01/24/2015 N/A IR FINE NEEDLE ASPIRATION W IMAGE GUIDANCE 12/19/2014 N/A IR G TUBE PLACEMENT PERCUTANEOUS 08/17/2014 N/A IR FINE NEEDLE ASPIRATION W IMAGE GUIDANCE 07/15/2014 N/A CENTRAL LINE PLACEMENT > 5 YEARS 07/15/2014 N/A CENTRAL LINE PLACEMENT > 5 YEARS 12/31/2013 N/A IR FINE NEEDLE ASPIRATION W IMAGE GUIDANCE 05/09/2015 N/A HYSTERECTOMY 08/22/1994 - 09/20/1994 GALLBLADDER SURGERY 11/22/2004 - 12/21/2004 filter CHOLECYSTECTOMY 02/21/2005 - 03/23/2005 CATARACT EXTRACTION 03/24/2005 - 03/23/2006 Bilateral RENAL BIOPSY 03/06/2006 TOTAL KNEE ARTHROPLASTY 01/13/2008 Right TOTAL KNEE ARTHROPLASTY 11/23/2011 - 12/22/2011 Left AV FISTULA PLACEMENT 08/22/2013 - 09/20/2013 NECK SURGERY 03/24/2014 - 03/23/2015 dissection EXTRACTION 09/22/2015 - 10/22/2015 blood clot right side of neck LARYNGOSCOPY 12/22/2014 - 01/21/2015 GLOSSECTOMY 05/22/2014 - 06/21/2014 with trach INSERT VENA CAVA FILTER 03/24/1994 - 03/23/1995 CENTRAL LINE PLACEMENT > 5 YEARS 07/18/2019 N/A BRAIN BIOPSY 06/23/2019 - 07/22/2019 Medical History Medical History Date Comments Essential hypertension CKD (chronic kidney disease) Tongue cancer Lupus anticoagulant disorder DVT (deep venous thrombosis) 09/1994 LLE Gout Osteoarthritis Spinal stenosis Hyperlipidemia Cerebral edema (HCC) 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) Acute encephalopathy Family History Medical History Relation Name Comments Hypertension Brother Family history of hypertension - (Added by TW Conv) MS Brother Hypertension Father Family history of hypertension - (Added by TW Conv) Hypertension Mother Family history of hypertension - (Added by TW Conv) Hypertension Sister Family history of hypertension - (Added by TW Conv) Hip fracture Neg Hx Osteoporosis Neg Hx Relation Name Status Comments Brother Father Mother Sister Social History Tobacco Use Types Packs/Day Years Used Date Smoking Tobacco: Never Smokeless Tobacco: Never Tobacco Cessation:Counseling Given: Not Answered Alcohol Use Standard Drinks/Week Comments No 0 [...] often do you attend chur ch or shinto services? More than 4 times per year 02/21/2025 Do you belong to any clubs o r organizations such as mormon groups, unions, fraternal or athletic groups, or [...] any time in the past 12 [facility], were you homeless or living in a residential (including now)? No 02/21/2025 [facility] Utilities Answer Date Recorded In the [...] on file Legal Sex Female 8:09 PM DIABETES TERRITORY MANAGER Gender Identity Not on file Sexual Orientation Not on file Last Filed Vital Signs Vital Sign Reading Time Taken Comments Blood Pressure 126/51 02/26/2025 8:06 AM DIABETES TERRITORY MANAGER Pulse 59 02/26/2025 8:06 AM DIABETES TERRITORY MANAGER Temperature 36.9 C (98.4 F) 02/26/2025 8:06 AM DIABETES TERRITORY MANAGER Respiratory Rate 16 02/26/2025 8:06 AM DIABETES TERRITORY MANAGER Oxygen Saturation 98% 02/26/2025 8:06 AM DIABETES TERRITORY MANAGER Inhaled Oxygen Concentration - - Weight 79 kg (174 lb 2.6 oz) 02/20/2025 11:40 PM DIABETES TERRITORY MANAGER Height 162.6 cm (5' 4) 02/20/2025 11:40 PM DIABETES TERRITORY MANAGER Body Mass Index 29.9 02/20/2025 11:40 PM DIABETES TERRITORY MANAGER Plan of Treatment Health Maintenance Due Date Last Done Comments DTaP/Tdap/Td Vaccine (1 - Tdap) 1960 Hepatitis B Screening 1968 Well Visit 65+ 2014 Covid-19 Vaccine (9 2024-2 6 season) 2024 07/02/2024, 12/25/2023, 12/24/2022, Additional history exists Influenza Vaccine (#1) 2024 , 12/23/2022, 12/27/2021, Additional history exists Osteoporosis Screening-Bone Density Scan 04/16/2025 04/16/2023, 07/17/2022, 02/07/2017 Depression Screening 08/19/2025 08/19/2024, 10/29/2023, 07/31/2023, Additional history exists Fall Risk Assessment 02/26/2026 02/26/2025, 08/19/2024, 10/29/2023, Additional history exists Colon Cancer Screening-Colonoscopy 2030 2020 Zoster Vaccine Completed 08/31/2018, 05/22/2018 Hepatitis C Screening Completed 07/12/2019, 015 Colon Cancer Screening-CT Colonography Discontinued 2020 Colon Cancer Screening-DNA Stool Discontinued 05/17/19 21 Colon Cancer Screening-FIT Discontinued 2020 Colon Cancer Screening-Sigmoidoscopy Discontinued 2020 Pneumococcal vaccine 65+ Completed 022, 08/31/2018, 01/30/2018, Additional history exists Breast Cancer Screening-Mammogram Discontinued 08/10/2024, 08/04/2023, 07/31/2022, Additional history exists Medical Devices Implanted Type Area Annealing Torch Operator Device Identifier Shelf Expiration Date Model / Serial / Lot Synthes Tfn-Advanced 11mm 235mm Cannulated Femoral Right Proximal 130d 04.037.144s - [id number] Implanted:Qty: 1 on 02/21/2025 by Colt Felix MD at [facility] Nail Right: Hip Synthes [id number] 11/22/2031 04.037.1 44S / / [id number] Synthes Screw Bone Locking Cannulated Femoral Proximal Gold Tfn Advance Titanium [id number] 04.038.205s - [id number] Implanted:Qty: 1 on 02/21/2025 by Colt Felix MD at [facility] Screw Right: Hip Synthes [id number] 11/21/2032 04.038.2 05S / / [id number] Synthes 5mm 4.3mm 40mm Lock Self Tap Blunt Tip 2 Lead Tibial T25 Full 04.005.530s - [id number] Implanted:Qty: 1 on 02/21/2025 by Colt Felix MD at [facility] Screw Right: Hip Synthes 08/22/2031 04.005.5 30S / / Richards Craniomaxillofaci al [id number] [place] Neuro Iii 14mmx.4mm Low Profile Shunt Tab - [id number] Implanted:Qty: 1 on 07/13/2019 by Ricky Maddox MD at [facility] Right: Cranial Richards Craniomaxillofacial [id number] / / Pedro Pablo Craniomaxillofaci al [id number] Un3 1.5mm 4mm Self Drill Craniomaxillofaci al Screw Bone - [id number] Implanted:Qty: 6 on 07/13/2019 by Ricky Maddox MD at [facility] Right: Cranial Pedro Pablo Craniomaxillofacial [id number] / / Procedures Procedure Name Priority Date/Time Associated Diagnosis Comments CBC WITHOUT DIFFERENTIAL Routine 02/26/2025 5:02 AM DIABETES TERRITORY MANAGER PROTIME-INR Routine 02/26/2025 5:02 AM DIABETES TERRITORY MANAGER EGFR Routine 02/25/2025 5:17 AM DIABETES TERRITORY MANAGER PHOSPHORUS Routine 02/25/2025 5:17 AM DIABETES TERRITORY MANAGER BILIRUBIN, DIRECT Routine 02/25/2025 5:1 7 AM DIABETES TERRITORY MANAGER COMPREHENSIVE METABOLIC PANEL Routine 02/25/2025 5:17 AM DIABETES TERRITORY MANAGER CBC WITHOUT DIFFERENTIAL Routine 02/25/2025 5:17 AM DIABETES TERRITORY MANAGER PROTIME-INR Routine 02/25/2025 5:17 AM DIABETES TERRITORY MANAGER TRANSFUSE RED BLOOD CELLS Timed 02/25/2025 12:13 AM DIABETES TERRITORY MANAGER ANTIBODY IDENTIFICATION Routine 02/24/2025 11:47 AM DIABETES TERRITORY MANAGER TYPE AND SCREEN Timed 02/24/2025 10:27 AM DIABETES TERRITORY MANAGER PREPARE RBC Timed 02/24/2025 10:05 AM DIABETES TERRITORY MANAGER DIFFERENTIAL AUTO Routine 02/24/2025 6:1 3 AM DIABETES TERRITORY MANAGER CBC WITH AUTO DIFFERENTIAL Routine 02/24/2025 6:13 AM DIABETES TERRITORY MANAGER PROTIME-INR Routine 02/24/2025 6:13 AM DIABETES TERRITORY MANAGER [facility] BLOOD BANK SENDOUT STAT 02/24/2025 5:38 AM DIABETES TERRITORY MANAGER [facility] BLOOD BANK SENDOUT STAT 02/24/2025 5:38 AM DIABETES TERRITORY MANAGER [facility] BLOOD BANK SENDOUT STAT 02/24/2025 5:38 AM DIABETES TERRITORY MANAGER TRANSFUSE RED BLOOD CELLS Timed 02/23/2025 5:21 PM DIABETES TERRITORY MANAGER PREPARE RBC Timed 02/23/2025 3:09 PM DIABETES TERRITORY MANAGER PREPARE RBC Timed 02/23/2025 8:24 AM DIABETES TERRITORY MANAGER LACTATE DEHYDROGENASE Routine 02/23/2025 6:16 AM DIABETES TERRITORY MANAGER IRON PROFILE W/ IBC Routine 02/23/2025 6 :16 AM DIABETES TERRITORY MANAGER FERRITIN Routine 02/23/2025 6:16 AM DIABETES TERRITORY MANAGER RETICULOCYTES Routine 02/23/2025 6:16 AM DIABETES TERRITORY MANAGER EGFR Routine 02/23/2025 6:16 AM DIABETES TERRITORY MANAGER DIFFERENTIAL AUTO Routine 02/23/2025 6:1 6 AM DIABETES TERRITORY MANAGER PROTIME-INR Routine 02/23/2025 6:16 AM DIABETES TERRITORY MANAGER CBC WITH AUTO DIFFERENTIAL Routine 02/23/2025 6:16 AM DIABETES TERRITORY MANAGER BASIC METABOLIC PANEL Routine 02/23/2025 6:16 AM DIABETES TERRITORY MANAGER POCT GLUCOSE DEVICE Routine 02/22/2025 3 :54 PM DIABETES TERRITORY MANAGER PROTIME-INR Routine 02/22/2025 12:47 PM DIABETES TERRITORY MANAGER POCT GLUCOSE DEVICE Routine 02/22/2025 8 :50 AM DIABETES TERRITORY MANAGER EGFR Routine 02/22/2025 6:20 AM DIABETES TERRITORY MANAGER DIFFERENTIAL AUTO Routine 02/22/2025 6:2 0 AM DIABETES TERRITORY MANAGER CBC WITH AUTO DIFFERENTIAL Routine 02/22/2025 6:20 AM DIABETES TERRITORY MANAGER BASIC METABOLIC PANEL Routine 02/22/2025 6:20 AM DIABETES TERRITORY MANAGER XR HIP RIGHT 2 OR 3 VIEWS ED Urgent/IP Urgent 02/21/2025 4:50 PM DIABETES TERRITORY MANAGER FL FLUOROSCOPY < 1 HOUR IP Routine 02/21/2025 4:16 PM DIABETES TERRITORY MANAGER ND AN PROCEDURE PLACEHOLDER Routine 02/21/2025 3:34 PM DIABETES TERRITORY MANAGER ND AN ELECTIVE SUPRAGLOTTIC AIRWAY Routine 02/21/2025 3:34 PM DIABETES TERRITORY MANAGER PROTIME-INR Routine 02/21/2025 2:19 PM DIABETES TERRITORY MANAGER EGFR Routine 02/21/2025 5:35 AM DIABETES TERRITORY MANAGER LIPID PANEL Routine 02/21/2025 5:35 AM DIABETES TERRITORY MANAGER BLOOD SMEAR REVIEW Routine 02/21/2025 5: 35 AM DIABETES TERRITORY MANAGER DIFFERENTIAL AUTO Routine 02/21/2025 5:3 5 AM DIABETES TERRITORY MANAGER PROTIME-INR Routine 02/21/2025 5:35 AM DIABETES TERRITORY MANAGER VITAMIN D 25 HYDROXY Routine 02/21/2025 5:35 AM DIABETES TERRITORY MANAGER PHOSPHORUS Routine 02/21/2025 5:35 AM DIABETES TERRITORY MANAGER MAGNESIUM Routine 02/21/2025 5:35 AM DIABETES TERRITORY MANAGER COMPREHENSIVE METABOLIC PANEL Routine 02/21/2025 5:35 AM DIABETES TERRITORY MANAGER CBC WITH AUTO DIFFERENTIAL Routine 02/21/2025 5:35 AM DIABETES TERRITORY MANAGER B CHECK SAMPLE STAT 02/21/2025 1:00 AM DIABETES TERRITORY MANAGER ANTIBODY IDENTIFICATION STAT 02/21/2025 12:37 AM DIABETES TERRITORY MANAGER XR CHEST 1 VIEW ED Urgent/IP Urgent 02/21/2025 12:20 AM DIABETES TERRITORY MANAGER XR HIPS BILATERAL W PELVIS 2 VIEW ED 02/21/2025 12:18 AM DIABETES TERRITORY MANAGER EGFR STAT 02/20/2025 11:47 PM DIABETES TERRITORY MANAGER DIFFERENTIAL AUTO STAT 02/20/2025 11:47 PM DIABETES TERRITORY MANAGER TYPE AND SCREEN STAT 02/20/2025 11:47 PM DIABETES TERRITORY MANAGER PROTIME-INR Routine 02/20/2025 11:47 PM DIABETES TERRITORY MANAGER COMPREHENSIVE METABOLIC PANEL STAT 02/20/2025 11:47 PM DIABETES TERRITORY MANAGER CBC WITH AUTO DIFFERENTIAL STAT 02/20/2025 11:47 PM DIABETES TERRITORY MANAGER PROTIME-INR Routine 01/26/2025 12:32 PM DIABETES TERRITORY MANAGER Lupus anticoagulant disorder PROTIME-INR Routine 01/18/2025 7:03 AM CDT PROTIME-INR Routine 12/17/2024 7:01 AM CDT MAMMOGRAPHY Schedule Routine, Read Routine (OP Routine) 08/10/2024 1:30 PM CDT DEXA TBS AXIAL SKELETON BONE DENSITY 1 OR MORE SITES Schedule Routine, Read Routine (OP Routine) 04/16/2023 12:30 PM DIABETES TERRITORY MANAGER Age-related osteoporosis without current pathological fracture COLONOSCOPY Routine 2020 1:09 PM DIABETES TERRITORY MANAGER HEPATITIS PANEL, ACUTE Routine 07/12/2019 8:16 PM CDT from Last 3 Months or Most Recently Relevant to Health Maintenance Results * (ABNORMAL) Protime-INR (02/26/2025 5:02 AM DIABETES TERRITORY MANAGER) PT 35.6(H) 12.0 - 14.6 sec Comment:Testing performed by : [facility], [address] [place] [address]., [address] INR 3.6(H) 0.9 - 1.2 JERARDO Comment: Interpretive data Oral anticoagulant therapeutic ranges: Venous thromboembolism prophylaxis or treatment: 2.0-3.0 CARDIOLOGY Standard range: 2.0-3.0 High-intensity range: 2.5-3.5 Refer to indication-specific guidelines for appropriate target ranges for prosthetic heart valve replacement. Current interpretive data was last revised on 2019. Testing performed by: [address] [address] Blood 02/26/2025 5:02 AM DIABETES TERRITORY MANAGER 02/26/2025 5:47 AM DIABETES TERRITORY MANAGER Narrative JERARDO - 02/26/2025 6:01 AM DIABETES TERRITORY MANAGER If this can be added on to this am labs please do us Fredy Winn MD LAB BLOOD ORDERABLES F inal Result JERARDO [address] [facility] Department [place] [address] * (ABNORMAL) CBC without differential (02/26/2025 5:02 AM DIABETES TERRITORY MANAGER) [facility] WBC 3.48(L) 3.80 - 9.90 K/cumm Comment:Testing performed by : [address] [address] Hgb 9.4(L) 11.9 - 15.5 g/dL JERARDO Comment:Testing performed by : [address], [address] Hct 30.1(L) 35.6 - 45.5 % JERARDO Comment:Testing performed by : [address], [address] Plt 205 150 - 400 K/cumm JERARDO Comment:Testing performed by : [address], [address] MPV 11.1 9.1 - 12.3 fL JERARDO Comment:Testing performed by : [address], [address] RBC 3.33(L) 3.90 - 5.20 M/cumm JERARDO Comment:Testing performed by : [address], [address] MCV 90.4 81.3 - 96.4 fL JERARDO Comment:Testing performed by : [address], [address] MCH 28.2 27.1 - 33.3 pg JERARDO Comment:Testing performed by : [address], [address] MCHC 31.2(L) 32.3 - 35.7 g/dL JERARDO Comment:Testing performed by : [address], [address] RDW CV 15.1(H) 11.1 - 14.9 % JERARDO Comment:Testing performed by : [address], [address] RDW SD 49.2(H) 35.7 - 48.1 fL JERARDO Comment:Testing performed by : [address], [address] NRBC abs 0.00 0.00 - 0.01 K/cumm JERARDO Comment:Testing performed by : [address] [address] Blood 02/26/2025 5:02 AM DIABETES TERRITORY MANAGER 02/26/2025 5:47 AM DIABETES TERRITORY MANAGER Fredy Winn MD LAB BLOOD ORDERABLES F inal Result Performing Organization Address [facility] Co de Phone Number JERARDO [address] [facility] [place] [address] * (ABNORMAL) eGFR (02/25/2025 5:17 AM DIABETES TERRITORY MANAGER) eGFR 40(L) >=60 mL/min/1. 73 m2 Comment: Interpretive Data Reference Interval Normal >/= 90 mL/min/1.73m2 Mildly decreased* 60 - 89 mL/min/1.73m2 Mildly to moderately decreased 45 - 59 mL/min/1.73m2 Moderately to severely decreased 30 - 44 mL/min/1.73m2 Severely decreased 15 - 29 mL/min/1.73m2 Kidney Failure < 15 mL/min/1.73m2 *Relative to young adult level Estimated glomerular filtration rate is determined by the 2020 CKD-EPI equation recommended by the National Kidney Foundation (A Unifying Approach to GFR Estimation: Recommendations of the NKF-ASK Task Force on Reassessing the Inclusion of Race in Diagnosing Kidney Disease, JASN 2020). The CKD-EPI equation should not be used for patients with unstable renal function and has not been validated in children and those over 70. Current interpretive data was last reviewed 2021. Testing performed by: [facility], [address] [place] [address]., [address] Blood 02/25/2025 5:17 AM DIABETES TERRITORY MANAGER 02/25/2025 5:27 AM DIABETES TERRITORY MANAGER us Fredy Winn MD LAB BLOOD ORDERABLES F inal Result Performing Organization Address City/[facility]/ZIP Co de Phone Number JERARDO [address] [facility] [place] [address] * (ABNORMAL) Protime-INR (02/25/2025 5:17 AM DIABETES TERRITORY MANAGER) PT 35.2(H) 12.0 - 14.6 sec Comment:Testing performed by : [address] [address] INR 3.6(H) 0.9 - 1.2 JERARDO GUTIÉRREZ Comment: Interpretive data Oral anticoagulant therapeutic ranges: Venous thromboembolism prophylaxis or treatment: 2.0-3.0 CARDIOLOGY Standard range: 2.0-3.0 High-intensity range: 2.5-3.5 Refer to indication-specific guidelines for appropriate target ranges for prosthetic heart valve replacement. Current interpretive data was last revised on 2019. Testing performed by: [address] [address] Blood 02/25/2025 5:17 AM DIABETES TERRITORY MANAGER 02/25/2025 5:27 AM DIABETES TERRITORY MANAGER Narrative JERARDO GUTIÉRREZ - 02/25/2025 5:40 AM DIABETES TERRITORY MANAGER If this can be added on to this am labs please do us Fredy Winn MD LAB BLOOD ORDERABLES F inal Result JERARDO [address] [facility] Department [place] [address] * (ABNORMAL) CBC without differential (02/25/2025 5:17 AM DIABETES TERRITORY MANAGER) Pathologist [facility] WBC 4.20 3.80 - 9.90 K/cumm Comment:Testing performed by : [address] [address] Hgb 9.0(L) 11.9 - 15.5 g/dL JERARDO GUTIÉRREZ Comment:Testing performed by : [address] [address] Hct 28.0(L) 35.6 - 45.5 % JERARDO GUTIÉRREZ Comment:Testing performed by : [address] [address] Plt 198 150 - 400 K/cumm JERARDO GUTIÉRREZ Comment:Testing performed by : [address] [address] MPV 10.5 9.1 - 12.3 fL JERARDO GUTIÉRREZ Comment:Testing performed by : [address] [address] RBC 3.15(L) 3.90 - 5.20 M/cumm JERARDO GUTIÉRREZ Comment:Testing performed by : [address] [address] MCV 88.9 81.3 - 96.4 fL JERARDO Comment:Testing performed by : [address] [address] MCH 28.6 27.1 - 33.3 pg JERARDO Comment:Testing performed by : [address] [address] MCHC 32.1(L) 32.3 - 35.7 g/dL JERARDO Comment:Testing performed by : [address], [address] RDW CV 14.7 11.1 - 14.9 % JERARDO Comment:Testing performed by : [address], [address] RDW SD 47.4 35.7 - 48.1 fL JERARDO Comment:Testing performed by : [address], [address] NRBC abs 0.00 0.00 - 0.01 K/cumm JERADRO Comment:Testing performed by : [address], [address] Blood 02/25/2025 5:17 AM DIABETES TERRITORY MANAGER 02/25/2025 5:27 AM DIABETES TERRITORY MANAGER us Fredy Winn MD LAB BLOOD ORDERABLES F inal Result JERARDO [address] [facility] Department of Laboratories [place], [place] [id number] * Phosphorus (02/25/2025 5:17 AM DIABETES TERRITORY MANAGER) [facility] Phosphorus, pl 2.3 2.3 - 4.5 mg/dL Comment:Testing performed by : [address] [address] Blood 02/25/2025 5:17 AM DIABETES TERRITORY MANAGER 02/25/2025 5:27 AM DIABETES TERRITORY MANAGER Fredy Winn MD LAB BLOOD ORDERABLES F inal Result Performing Organization Address [facility] de Phone Number [address] [place] [address] * (ABNORMAL) Bilirubin, direct (02/25/2025 5:17 AM DIABETES TERRITORY MANAGER) Bilirubin, direct 0.4(H) 0.1 - 0.3 mg/dL Comment:Testing performed by : [address] [address] Blood 02/25/2025 5:17 AM DIABETES TERRITORY MANAGER 02/25/2025 5:27 AM DIABETES TERRITORY MANAGER Fredy Winn MD LAB BLOOD ORDERABLES F inal Result Performing Organization Address [facility] de Phone Number [address] [address] * (ABNORMAL) Comprehensive metabolic panel (02/25/2025 5:17 AM DIABETES TERRITORY MANAGER) Sodium 139 135 - 145 mmol/L Comment:Testing performed by : [address] [address] Potassium, pl 4.7 3.3 - 4.9 mmol/L JERARDO Comment:Testing performed by : [address] [address] Chloride 105 97 - 110 mmol/L JERARDO Comment:Testing performed by : [address] [address] CO2 29 22 - 32 mmol/L JERARDO Comment:Testing performed by : [address] [address] Anion gap 5 2 - 15 mmol/L JERARDO Comment:Testing performed by : [address] [address] BUN 26(H) 6 - 25 mg/dL JERARDO Comment:Testing performed by : [address] [address] Creatinine 1.39(H) 0.60 - 1.10 mg/dL JERARDO Comment:Testing performed by : [address] [address] Glucose 97 70 - 199 mg/dL JERARDO Comment: Interpretive Data Fasting glucose >/= 126 mg/dl is diagnostic for diabetes. Fasting is defined as no caloric intake for at least 8 hours. Fasting glucose between 100 mg/dl to 125 mg/dl is diagnostic of prediabetes. In a patient with classic symptoms of hyperglycemia or hyperglycemic crisis, a random glucose >/= 200 mg/dl is diagnostic for diabetes. In the absence of unequivocal hyperglycemia, results should be confirmed by repeat testing. The classification and Diagnosis of Diabetes Diabetes Care 202; 46: S19-S40. Current interpretive data was last revised 2022. Testing performed by: [address] [address] Calcium 9.4 8.5 - 10.3 mg/dL JERARDO Comment:Testing performed by : [address] [address] Bilirubin, total 0.6 0.1 - 1.2 mg/dL JERARDO Comment:Testing performed by : [address] [address] Protein, pl 5.6(L) 6.5 - 8.5 g/dL JERARDO Comment:Testing performed by : [address] [address] Albumin 2.7(L) 3.5 - 5.0 g/dL JERARDO Comment:Testing performed by : [address] [address] Alk phos 67 40 - 130 Units/L JERARDO Comment:Testing performed by : [address] [address] ALT 8 7 - 45 Units/L JERARDO Comment:Testing performed by : [facility] [address] [place] [address]., [address] AST 42 10 - 45 Units/L JERARDO Comment:Testing performed by : [facility], [address] [place] [address]., [address] Blood 02/25/2025 5:17 AM DIABETES TERRITORY MANAGER 02/25/2025 5:27 AM DIABETES TERRITORY MANAGER Fredy Winn MD LAB BLOOD ORDERABLES F inal Result Performing Organization Address [facility] de Phone Number APOLINAR[address] [employer] [address] * Transfuse RBC (02/25/2025 4:38 AM DIABETES TERRITORY MANAGER) Blood Fredy Winn MD BLOOD TRANSFUSION ORDE RABLES Final Result Performing Organization Address [facility] de Phone Number APOLIN[address] [place] [employer] [address] * Antibody identification (02/24/2025 11:47 AM DIABETES TERRITORY MANAGER) Antibody ID 2 Anti-K JERARDO Antibody ID 1 Anti-E JERARDO Blood 02/24/2025 11:4 7 AM DIABETES TERRITORY MANAGER 02/24/2025 11:47 AM DIABETES TERRITORY MANAGER Fredy Winn MD LAB BLOOD BANK TEST OR DERABLES Final Result Performing Organization Address [facility] de Phone Number [address] [place] [address] * (ABNORMAL) Type and screen (02/24/2025 10:27 AM DIABETES TERRITORY MANAGER) [place], indirect Positive(A) JERARDO ABO Rh A Positive JERARDO Blood 02/24/2025 10:2 7 AM DIABETES TERRITORY MANAGER 02/24/2025 10:30 AM DIABETES TERRITORY MANAGER Narrative JERARDO - 02/24/2025 11:47 AM DIABETES TERRITORY MANAGER Has the patient had Daratumumab or Isatuximab in the past 6 months?->Unknown Fredy Winn MD LAB BLOOD BANK TEST OR DERABLES Final Result Performing Organization Address [facility] de Phone Number JERARDO [address] [address] * Prepare RBC: 1 Units (02/24/2025 10:05 AM DIABETES TERRITORY MANAGER) [facility] Product code [id number] [facility] Unit Number [id number] [facility] Product Blood Type ANEG [facility] Dispense Status PRESUMED TRANSFUSED JERARDO Blood 02/24/2025 10:0 5 AM DIABETES TERRITORY MANAGER 02/24/2025 10:05 AM DIABETES TERRITORY MANAGER Narrative [facility] - 02/26/2025 4:00 AM DIABETES TERRITORY MANAGER Are special requirements needed? (All products are leukoreduced and CMV- safe)- >No Date required:-[id number] LRRBC # of [id number] Reasons:-Cardiovascular disease, Hgb <8 g/dL} Fredy Winn MD BLOOD BANK PRODUCT ORD ERABLES Final Result Performing Organization Address [facility] de Phone Number [address] [address] * Differential, auto (02/24/2025 6:13 AM DIABETES TERRITORY MANAGER) [facility] Neutrophil abs 3.29 1.50 - 6.50 K/cumm Comment:Testing performed by : [address] [address] Imm gran abs 0.01 0.00 - 0.10 K/cumm JERARDO Comment:Testing performed by : [address] [address] Lymphocyte abs 1.33 0.80 - 3.30 K/cumm JERARDO Comment:Testing performed by : [address] [address] Monocyte abs 0.44 0.20 - 0.80 K/cumm JERARDO Comment:Testing performed by : [address] [address] Eosinophil abs 0.00 0.00 - 0.50 K/cumm JERARDO Comment:Testing performed by : [address] [address] Basophil abs 0.01 0.00 - 0.10 K/cumm [facility]:Testing performed by : [address] [address] Neutrophil pct 64.7 % [facility] Comment: Interpretive Data Percent cell count reference ranges are not reported, since discordance with absolute values may lead to misinterpretation of CBC data. Current Interpretive Data was last revised on 2017. Testing performed by: [address] [address] Imm gran pct 0.2 % [facility] Comment: Interpretive Data Percent cell count reference ranges are not reported, since discordance with absolute values may lead to misinterpretation of CBC data. Current Interpretive Data was last revised on 2017. Testing performed by: [address] [address] Lymphocyte pct 26.2 % [facility] Comment: Interpretive Data Percent cell count reference ranges are not reported, since discordance with absolute values may lead to misinterpretation of CBC data. Current Interpretive Data was last revised on 2017. Testing performed by: [address] [address] Monocyte pct 8.7 % [facility] Comment: Interpretive Data Percent cell count reference ranges are not reported, since discordance with absolute values may lead to misinterpretation of CBC data. Current Interpretive Data was last revised on 2017. Testing performed by: [address] [address] Eosinophil pct 0.0 % [facility] Comment: Interpretive Data Percent cell count reference ranges are not reported, since discordance with absolute values may lead to misinterpretation of CBC data. Current Interpretive Data was last revised on 2017. Testing performed by: [address] [address] Basophil pct 0.2 % [facility] Comment: Interpretive Data Percent cell count reference ranges are not reported, since discordance with absolute values may lead to misinterpretation of CBC data. Current Interpretive Data was last revised on 2017. Testing performed by: [address] [address] Blood 02/24/2025 6:13 AM DIABETES TERRITORY MANAGER 02/24/2025 6:35 AM DIABETES TERRITORY MANAGER us Fredy Winn MD LAB BLOOD ORDERABLES F inal Result [place] [id number] [facility] Department [place] [address] * (ABNORMAL) CBC with auto differential (02/24/2025 6:13 AM DIABETES TERRITORY MANAGER) WBC 5.08 3.80 - 9.90 K/cumm Comment:Testing performed by : [address] [address] Hgb 7.5(L) 11.9 - 15.5 g/dL JERARDO Comment:Testing performed by : [address] [address] Hct 22.9(L) 35.6 - 45.5 % JERARDO Comment:Testing performed by : [address] [address] Plt 190 150 - 400 K/cumm JERARDO Comment:Testing performed by : [address] [address] MPV 10.9 9.1 - 12.3 fL JERARDO Comment:Testing performed by : [address] [address] RBC 2.57(L) 3.90 - 5.20 M/cumm JERARDO Comment:Testing performed by : [address] [address] MCV 89.1 81.3 - 96.4 fL JERARDO Comment:Testing performed by : [address] [address] MCH 29.2 27.1 - 33.3 pg JERARDO GUTIÉRREZ Comment:Testing performed by : [address] [address] MCHC 32.8 32.3 - 35.7 g/dL JERARDO GUTIÉRREZ Comment:Testing performed by : [address] [address] RDW CV 13.2 11.1 - 14.9 % JERARDO GUTIÉRREZ Comment:Testing performed by : [address] [address] RDW SD 43.3 35.7 - 48.1 fL JERARDO GUTIÉRREZ Comment:Testing performed by : [address] [address] NRBC abs 0.00 0.00 - 0.01 K/cumm JERARDO GUTIÉRREZ Comment:Testing performed by : [address] [address] Blood 02/24/2025 6:13 AM DIABETES TERRITORY MANAGER 02/24/2025 6:35 AM DIABETES TERRITORY MANAGER us Fredy Winn MD LAB BLOOD ORDERABLES F inal Result JERARDO [address] [facility] Department [place] [address] * (ABNORMAL) Protime-INR (02/24/2025 6:13 AM DIABETES TERRITORY MANAGER) PT 30.6(H) 12.0 - 14.6 sec Comment:Testing performed by : [address] [address] INR 3.0(H) 0.9 - 1.2 JERARDO Comment: Interpretive data Oral anticoagulant therapeutic ranges: Venous thromboembolism prophylaxis or treatment: 2.0-3.0 CARDIOLOGY Standard range: 2.0-3.0 High-intensity range: 2.5-3.5 Refer to indication-specific guidelines for appropriate target ranges for prosthetic heart valve replacement. Current interpretive data was last revised on 2019. Testing performed by: [address] [address] Blood 02/24/2025 6:13 AM DIABETES TERRITORY MANAGER 02/24/2025 6:33 AM DIABETES TERRITORY MANAGER Narrative JERARDO - 02/24/2025 6:54 AM DIABETES TERRITORY MANAGER If this can be added on to this am labs please do us Fredy Winn MD LAB BLOOD ORDERABLES F inal Result [address]IN[address] [place] [address] * [facility] BLOOD BANK SENDOUT (02/24/2025 5:38 AM DIABETES TERRITORY MANAGER) [facility] BLOOD BANK Completed Comment:Testing performed by : [address] [address] Blood 02/24/2025 5:38 AM DIABETES TERRITORY MANAGER 02/24/2025 2:50 PM DIABETES TERRITORY MANAGER Fredy Winn MD LAB BLOOD ORDERABLES F inal Result Performing Organization Address [facility] Co de Phone Number [address] [address] * [facility] BLOOD BANK SENDOUT (02/24/2025 5:38 AM DIABETES TERRITORY MANAGER) [facility] BLOOD BANK Completed Comment:Testing performed by : [address] [address] Blood 02/24/2025 5:38 AM DIABETES TERRITORY MANAGER 02/24/2025 2:50 PM DIABETES TERRITORY MANAGER Fredy Winn MD LAB BLOOD ORDERABLES F inal Result [address] [address] * [facility] BLOOD BANK SENDOUT (02/24/2025 5:38 AM DIABETES TERRITORY MANAGER) [facility] BLOOD BANK Completed Comment:Testing performed by : [address], [place]., [address] Blood 02/24/2025 5:38 AM DIABETES TERRITORY MANAGER 02/24/2025 2:50 PM DIABETES TERRITORY MANAGER Fredy Winn MD LAB BLOOD ORDERABLES F inal Result Performing Organization Address City/[facility]/ZIP Co de Phone Number [address] [address] * Transfuse RBC (02/23/2025 8:17 PM DIABETES TERRITORY MANAGER) Blood Fredy Winn MD BLOOD TRANSFUSION ORDE RABLES Final Result Performing Organization Address [facility] de Phone Number [address] [address] * Prepare RBC: 1 Units (02/23/2025 3:09 PM DIABETES TERRITORY MANAGER) Product code [id number] JERARDO Unit Number [id number] JERARDO Product Blood Type APOS JERARDO Dispense Status PRESUMED TRANSFUSED JERARDO Blood 02/23/2025 3:09 PM DIABETES TERRITORY MANAGER 02/23/2025 3:08 PM DIABETES TERRITORY MANAGER Narrative JERARDO - 02/25/2025 4:00 AM DIABETES TERRITORY MANAGER Are special requirements needed? (All products are leukoreduced and CMV- safe)- >No Date required:-[id number] LRRBC # of Hyfai-[id number] Reasons:-Hgb <7 g/dL} Fredy Winn MD BLOOD BANK PRODUCT ORD ERABLES Final Result Performing Organization Address [facility] Co de Phone Number [address] [place] [address] * Prepare RBC: 1 Units (02/23/2025 8:24 AM DIABETES TERRITORY MANAGER) Product code [id number] [facility] Unit Number [id number] JERARDO Product Blood Type APOS JERARDO Dispense Status RETURNED JERARDO Blood 02/23/2025 8:24 AM DIABETES TERRITORY MANAGER 02/23/2025 8:23 AM DIABETES TERRITORY MANAGER Narrative JERARDO - 02/23/2025 2:59 PM DIABETES TERRITORY MANAGER Are special requirements needed? (All products are leukoreduced and CMV- safe)- >No Date required:-[id number] LRRBC # of Heyuu-5-Ejkwj Reasons:-Hgb <7 g/dL} us Fredy Winn MD BLOOD BANK PRODUCT ORD ERABLES Final Result JERARDO [address] [facility] Department [place] [address] * (ABNORMAL) eGFR (02/23/2025 6:16 AM DIABETES TERRITORY MANAGER) eGFR 36(L) >=60 mL/min/1. 73 m2 Comment: Interpretive Data Reference Interval Normal >/= 90 mL/min/1.73m2 Mildly decreased* 60 - 89 mL/min/1.73m2 Mildly to moderately decreased 45 - 59 mL/min/1.73m2 Moderately to severely decreased 30 - 44 mL/min/1.73m2 Severely decreased 15 - 29 mL/min/1.73m2 Kidney Failure < 15 mL/min/1.73m2 *Relative to young adult level Estimated glomerular filtration rate is determined by the 2020 CKD-EPI equation recommended by the National Kidney Foundation (A Unifying Approach to GFR Estimation: Recommendations of the NKF-ASK Task Force on Reassessing the Inclusion of Race in Diagnosing Kidney Disease, JASN 2020). The CKD-EPI equation should not be used for patients with unstable renal function and has not been validated in children and those over 70. Current interpretive data was last reviewed 2021. Testing performed by: [facility], [address] [place] [address]., [address] Blood 02/23/2025 6:16 AM DIABETES TERRITORY MANAGER 02/23/2025 6:51 AM DIABETES TERRITORY MANAGER us Colt Felix MD LAB BLOOD ORDERABLES Final R esult JERARDO [address] [facility] Department [place] [address] * Differential, auto (02/23/2025 6:16 AM DIABETES TERRITORY MANAGER) Neutrophil abs 3.90 1.50 - 6.50 K/cumm Comment:Testing performed by : [address] [address] Imm gran abs 0.02 0.00 - 0.10 K/cumm JERARDO Comment:Testing performed by : [address] [address] Lymphocyte abs 1.47 0.80 - 3.30 K/cumm JERARDO Comment:Testing performed by : [address] [address] Monocyte abs 0.51 0.20 - 0.80 K/cumm JERARDO Comment:Testing performed by : [address] [address] Eosinophil abs 0.00 0.00 - 0.50 K/cumm [facility] Comment:Testing performed by : [address] [address] Basophil abs 0.02 0.00 - 0.10 K/cumm [facility] Comment:Testing performed by : [address] [address] Neutrophil pct 66.0 % JERARDO Comment: Interpretive Data Percent cell count reference ranges are not reported, since discordance with absolute values may lead to misinterpretation of CBC data. Current Interpretive Data was last revised on 2017. Testing performed by: [address] [address] Imm gran pct 0.3 % JERARDO Comment: Interpretive Data Percent cell count reference ranges are not reported, since discordance with absolute values may lead to misinterpretation of CBC data. Current Interpretive Data was last revised on 2017. Testing performed by: [address] [address] Lymphocyte pct 24.8 % JERARDO Comment: Interpretive Data Percent cell count reference ranges are not reported, since discordance with absolute values may lead to misinterpretation of CBC data. Current Interpretive Data was last revised on 2017. Testing performed by: [address] [address] Monocyte pct 8.6 % JERARDO Comment: Interpretive Data Percent cell count reference ranges are not reported, since discordance with absolute values may lead to misinterpretation of CBC data. Current Interpretive Data was last revised on 2017. Testing performed by: [address] [address] Eosinophil pct 0.0 % JERARDO Comment: Interpretive Data Percent cell count reference ranges are not reported, since discordance with absolute values may lead to misinterpretation of CBC data. Current Interpretive Data was last revised on 2017. Testing performed by: [address] [address] Basophil pct 0.3 % JERARDO Comment: Interpretive Data Percent cell count reference ranges are not reported, since discordance with absolute values may lead to misinterpretation of CBC data. Current Interpretive Data was last revised on 2017. Testing performed by: [address] [address] Blood 02/23/2025 6:16 AM DIABETES TERRITORY MANAGER 02/23/2025 6:51 AM DIABETES TERRITORY MANAGER us Colt Felix MD LAB BLOOD ORDERABLES Final R esult [facility] [address] [facility] Department [place] [address] * (ABNORMAL) Iron profile w/ IBC (02/23/2025 6:16 AM DIABETES TERRITORY MANAGER) Iron 30(L) 35 - 145 mcg/dL Comment:Testing performed by : [address] [address] TIBC 152(L) 250 - 400 mcg/dL JERARDO Comment:Testing performed by : [address] [address] Transferrin saturation 20 20 - 50 % JERARDO GUTIÉRREZ Comment:Testing performed by : [address] [address] Blood 02/23/2025 6:16 AM DIABETES TERRITORY MANAGER 02/23/2025 6:51 AM DIABETES TERRITORY MANAGER us Fredy Winn MD LAB BLOOD ORDERABLES F inal Result JERARDO [address] [facility] Department [place] [address] * (ABNORMAL) CBC with auto differential (02/23/2025 6:16 AM DIABETES TERRITORY MANAGER) WBC 5.92 3.80 - 9.90 K/cumm Comment:Testing performed by : [address] [address] Hgb 6.6(L) 11.9 - 15.5 g/dL JERARDO Comment:Testing performed by : [address] [address] Hct 20.9(L) 35.6 - 45.5 % JERARDO Comment:Testing performed by : [address] [address] Plt 168 150 - 400 K/cumm JERARDO Comment:Testing performed by : [address] [address] MPV 11.4 9.1 - 12.3 fL JERARDO Comment:Testing performed by : [address] [address] RBC 2.29(L) 3.90 - 5.20 M/cumm JERARDO Comment:Testing performed by : [address] [address] MCV 91.3 81.3 - 96.4 fL JERARDO GUTIÉRREZ Comment:Testing performed by : [address] [address] MCH 28.8 27.1 - 33.3 pg JERARDO GUTIÉRREZ Comment:Testing performed by : [address] [address] MCHC 31.6(L) 32.3 - 35.7 g/dL JERARDO Comment:Testing performed by : [address] [address] RDW CV 12.8 11.1 - 14.9 % JERARDO Comment:Testing performed by : [address] [address] RDW SD 42.1 35.7 - 48.1 fL JERARDO Comment:Testing performed by : [address] [address] NRBC abs 0.00 0.00 - 0.01 K/cumm JERARDO Comment:Testing performed by : [address] [address] Blood 02/23/2025 6:16 AM DIABETES TERRITORY MANAGER 02/23/2025 6:51 AM DIABETES TERRITORY MANAGER Colt Felix MD LAB BLOOD ORDERABLES Final R esult JERARDO [address] [facility] Department [place] [address] * (ABNORMAL) Protime-INR (02/23/2025 6:16 AM DIABETES TERRITORY MANAGER) PT 24.8(H) 12.0 - 14.6 sec Comment:Testing performed by : [address] [address] INR 2.3(H) 0.9 - 1.2 JERARDO Comment: Interpretive data Oral anticoagulant therapeutic ranges: Venous thromboembolism prophylaxis or treatment: 2.0-3.0 CARDIOLOGY Standard range: 2.0-3.0 High-intensity range: 2.5-3.5 Refer to indication-specific guidelines for appropriate target ranges for prosthetic heart valve replacement. Current interpretive data was last revised on 2019. Testing performed by: [address] [address] Blood 02/23/2025 6:16 AM DIABETES TERRITORY MANAGER 02/23/2025 6:52 AM DIABETES TERRITORY MANAGER Narrative JERARDO - 02/23/2025 7:24 AM DIABETES TERRITORY MANAGER If this can be added on to this am labs please do Fredy Winn MD LAB BLOOD ORDERABLES F inal Result Performing Organization Address [facility] Co de Phone Number [address] [address] * (ABNORMAL) Reticulocyte Count (02/23/2025 6:16 AM DIABETES TERRITORY MANAGER) Pathologist [facility] Retics, absolute 40 20 - 87 K/cumm Comment:Testing performed by : [address] [address] Retics 1.8 0.4 - 2.9 % JERARDO Comment:Testing performed by : [address] [address] Reticulocyte Hgb 30.0(L) 30.5 - 38.0 pg JERARDO Comment:Testing performed by : [address] [address] Blood 02/23/2025 6:16 AM DIABETES TERRITORY MANAGER 02/23/2025 6:51 AM DIABETES TERRITORY MANAGER Fredy Winn MD LAB BLOOD ORDERABLES F inal Result Performing Organization Address [facility] de Phone Number [address] [place] [address] * Lactate dehydrogenase (LD) (02/23/2025 6:16 AM DIABETES TERRITORY MANAGER) [facility] Lactate dehydrogenase (LDH) 202 100 - 250 Units/L Comment:Testing performed by : [address] [address] Blood 02/23/2025 6:16 AM DIABETES TERRITORY MANAGER 02/23/2025 6:51 AM DIABETES TERRITORY MANAGER Fredy Winn MD LAB BLOOD ORDERABLES F inal Result Performing Organization Address City/[facility] Co de Phone Number [address] [place] [address] * (ABNORMAL) Ferritin (02/23/2025 6:16 AM DIABETES TERRITORY MANAGER) Pathologist [facility] Ferritin 1,460(H) 13 - 150 ng/mL Comment:Testing performed by : [address] [address] Blood 02/23/2025 6:16 AM DIABETES TERRITORY MANAGER 02/23/2025 6:51 AM DIABETES TERRITORY MANAGER us Fredy Winn MD LAB BLOOD ORDERABLES F inal Result [facility] [address] [facility] [place] [address] * (ABNORMAL) Basic metabolic panel (02/23/2025 6:16 AM DIABETES TERRITORY MANAGER) [facility] Sodium 139 135 - 145 mmol/L Comment:Testing performed by : [address] [address] Potassium, pl 4.6 3.3 - 4.9 mmol/L JERARDO Comment:Testing performed by : [address] [address] Chloride 104 97 - 110 mmol/L JERARDO Comment:Testing performed by : [address] [address] CO2 28 22 - 32 mmol/L JERARDO Comment:Testing performed by : [address] [address] Anion gap 7 2 - 15 mmol/L JERARDO Comment:Testing performed by : [address] [address] BUN 29(H) 6 - 25 mg/dL JERARDO Comment:Testing performed by : [address] [address] Creatinine 1.50(H) 0.60 - 1.10 mg/dL JERARDO Comment:Testing performed by : [address] [address] Glucose 82 70 - 199 mg/dL JERARDO Comment: Interpretive Data Fasting glucose >/= 126 mg/dl is diagnostic for diabetes. Fasting is defined as no caloric intake for at least 8 hours. Fasting glucose between 100 mg/dl to 125 mg/dl is diagnostic of prediabetes. In a patient with classic symptoms of hyperglycemia or hyperglycemic crisis, a random glucose >/= 200 mg/dl is diagnostic for diabetes. In the absence of unequivocal hyperglycemia, results should be confirmed by repeat testing. The classification and Diagnosis of Diabetes Diabetes Care 2021; 46: S19-S40. Current interpretive data was last revised 2022. Testing performed by: [address] [address] Calcium 9.0 8.5 - 10.3 mg/dL JERARDO Comment:Testing performed by : [address] [address] Blood 02/23/2025 6:16 AM DIABETES TERRITORY MANAGER 02/23/2025 6:51 AM DIABETES TERRITORY MANAGER Colt Felix MD LAB BLOOD ORDERABLES Final R esult Performing Organization Address City/[facility]/ZIP Co de Phone Number [address] [place] [address] * POCT glucose (02/22/2025 3:54 PM DIABETES TERRITORY MANAGER) [facility] Glucose, POC 140 70 - 199 mg/dL Comment:Testing performed by : [address] [address] Blood 02/22/2025 3:54 PM DIABETES TERRITORY MANAGER 02/22/2025 3:54 PM DIABETES TERRITORY MANAGER Fredy Winn MD LAB POCT ORDERABLES - DEVICE Final Result Performing Organization Address City/[facility]/ZIP Co de Phone Number [address] [place] [address] * (ABNORMAL) Protime-INR (02/22/2025 12:47 PM DIABETES TERRITORY MANAGER) Pathologist [facility] PT 18.8(H) 12.0 - 14.6 sec Comment:Testing performed by : [facility], [address] [place] [address]., [address] INR 1.6(H) 0.9 - 1.2 JERARDO Comment: Interpretive data Oral anticoagulant therapeutic ranges: Venous thromboembolism prophylaxis or treatment: 2.0-3.0 CARDIOLOGY Standard range: 2.0-3.0 High-intensity range: 2.5-3.5 Refer to indication-specific guidelines for appropriate target ranges for prosthetic heart valve replacement. Current interpretive data was last revised on 2019. Testing performed by: [address] [address] Blood 02/22/2025 12:4 7 PM DIABETES TERRITORY MANAGER 02/22/2025 12:50 PM DIABETES TERRITORY MANAGER Narrative JERARDO - 02/22/2025 1:00 PM DIABETES TERRITORY MANAGER If this can be added on to this am labs please do Fredy Winn MD LAB BLOOD ORDERABLES F inal Result Performing Organization Address City/[facility]/ZIP Co de Phone Number [place] [address] [facility] [place] [address] * POCT glucose (02/22/2025 8:50 AM DIABETES TERRITORY MANAGER) [facility] Glucose, POC 152 70 - 199 mg/dL Comment:Testing performed by : [address] [address] Blood 02/22/2025 8:50 AM DIABETES TERRITORY MANAGER 02/22/2025 8:50 AM DIABETES TERRITORY MANAGER Fredy Winn MD LAB POCT ORDERABLES - DEVICE Final Result Performing Organization Address City/[facility]/ZIP Co de Phone Number [address] [place] [address] * (ABNORMAL) eGFR (02/22/2025 6:20 AM DIABETES TERRITORY MANAGER) [facility] eGFR 36(L) >=60 mL/min/1. 73 m2 Comment: Interpretive Data Reference Interval Normal >/= 90 mL/min/1.73m2 Mildly decreased* 60 - 89 mL/min/1.73m2 Mildly to moderately decreased 45 - 59 mL/min/1.73m2 Moderately to severely decreased 30 - 44 mL/min/1.73m2 Severely decreased 15 - 29 mL/min/1.73m2 Kidney Failure < 15 mL/min/1.73m2 *Relative to young adult level Estimated glomerular filtration rate is determined by the 2020 CKD-EPI equation recommended by the National Kidney Foundation (A Unifying Approach to GFR Estimation: Recommendations of the NKF-ASK Task Force on Reassessing the Inclusion of Race in Diagnosing Kidney Disease, JASN 2020). The CKD-EPI equation should not be used for patients with unstable renal function and has not been validated in children and those over 70. Current interpretive data was last reviewed 2021. Testing performed by: [address] [address] Blood 02/22/2025 6:20 AM DIABETES TERRITORY MANAGER 02/22/2025 6:42 AM DIABETES TERRITORY MANAGER us Colt Felix MD LAB BLOOD ORDERABLES Final R esult [facility] [address] [facility] Department [place] [address] * (ABNORMAL) Differential, auto (02/22/2025 6:20 AM DIABETES TERRITORY MANAGER) Neutrophil abs 5.38 1.50 - 6.50 K/cumm Comment:Testing performed by : [address] [address] Imm gran abs 0.01 0.00 - 0.10 K/cumm JERARDO Comment:Testing performed by : [address] [address] Lymphocyte abs 0.57(L) 0.80 - 3.30 K/cumm JERARDO Comment:Testing performed by : [address] [address] Monocyte abs 0.47 0.20 - 0.80 K/cumm JERARDO Comment:Testing performed by : [address] [address] Eosinophil abs 0.00 0.00 - 0.50 K/cumm [facility] Comment:Testing performed by : [address] [address] Basophil abs 0.00 0.00 - 0.10 K/cumm [facility] Comment:Testing performed by : [address] [address] Neutrophil pct 83.6 % [facility] Comment: Interpretive Data Percent cell count reference ranges are not reported, since discordance with absolute values may lead to misinterpretation of CBC data. Current Interpretive Data was last revised on 2017. Testing performed by: [address] [address] Imm gran pct 0.2 % [facility] Comment: Interpretive Data Percent cell count reference ranges are not reported, since discordance with absolute values may lead to misinterpretation of CBC data. Current Interpretive Data was last revised on 2017. Testing performed by: [address] [address] Lymphocyte pct 8.9 % [facility] Comment: Interpretive Data Percent cell count reference ranges are not reported, since discordance with absolute values may lead to misinterpretation of CBC data. Current Interpretive Data was last revised on 2017. Testing performed by: [address] [address] Monocyte pct 7.3 % [facility] Comment: Interpretive Data Percent cell count reference ranges are not reported, since discordance with absolute values may lead to misinterpretation of CBC data. Current Interpretive Data was last revised on 2017. Testing performed by: [address] [address] Eosinophil pct 0.0 % [facility] Comment: Interpretive Data Percent cell count reference ranges are not reported, since discordance with absolute values may lead to misinterpretation of CBC data. Current Interpretive Data was last revised on 2017. Testing performed by: [address] [address] Basophil pct 0.0 % [facility] Comment: Interpretive Data Percent cell count reference ranges are not reported, since discordance with absolute values may lead to misinterpretation of CBC data. Current Interpretive Data was last revised on 2017. Testing performed by: [address] [address] Blood 02/22/2025 6:20 AM DIABETES TERRITORY MANAGER 02/22/2025 6:42 AM DIABETES TERRITORY MANAGER us Colt Felix MD LAB BLOOD ORDERABLES [facility] [address] [facility] Department [place] [address] * (ABNORMAL) CBC with auto differential (02/22/2025 6:20 AM DIABETES TERRITORY MANAGER) WBC 6.43 3.80 - 9.90 K/cumm Comment:Testing performed by : [address] [address] Hgb 7.5(L) 11.9 - 15.5 g/dL JERARDO Comment:Testing performed by : [address] [address] Hct 22.9(L) 35.6 - 45.5 % JERARDO Comment:Testing performed by : [address] [address] Plt 165 150 - 400 K/cumm JERARDO Comment:Testing performed by : [address] [address] MPV 10.9 9.1 - 12.3 fL JERARDO Comment:Testing performed by : [address] [address] RBC 2.59(L) 3.90 - 5.20 M/cumm JERARDO Comment:Testing performed by : [address] [address] MCV 88.4 81.3 - 96.4 fL JERARDO Comment:Testing performed by : [address] [address] MCH 29.0 27.1 - 33.3 pg JERARDO Comment:Testing performed by : [address] [place] [address] MCHC 32.8 32.3 - 35.7 g/dL JERARDO GUTIÉRREZ Comment:Testing performed by : [address] [address] RDW CV 12.7 11.1 - 14.9 % JERARDO GUTIÉRREZ Comment:Testing performed by : [address] [address] RDW SD 41.0 35.7 - 48.1 fL JERARDO GUTIÉRREZ Comment:Testing performed by : [address] [address] NRBC abs 0.00 0.00 - 0.01 K/cumm JERARDO GUTIÉRREZ Comment:Testing performed by : [address] [address] Blood 02/22/2025 6:20 AM DIABETES TERRITORY MANAGER 02/22/2025 6:42 AM DIABETES TERRITORY MANAGER Colt Felix MD LAB BLOOD ORDERABLES Final [facility] [address] [facility] Department [place] [address] * (ABNORMAL) Basic metabolic panel (02/22/2025 6:20 AM DIABETES TERRITORY MANAGER) Sodium 137 135 - 145 mmol/L Comment:Testing performed by : [address] [address] Potassium, pl 4.8 3.3 - 4.9 mmol/L JERARDO GUTIÉRREZ Comment:Testing performed by : [address] [address] Chloride 102 97 - 110 mmol/L JERARDO GUTIÉRREZ Comment:Testing performed by : [address] [address] CO2 26 22 - 32 mmol/L JERARDO GUTIÉRREZ Comment:Testing performed by : [address] [address] Anion gap 9 2 - 15 mmol/L JERARDO GUTIÉRREZ Comment:Testing performed by : [address] [address] BUN 24 6 - 25 mg/dL JERARDO Comment:Testing performed by : [address] [address] Creatinine 1.50(H) 0.60 - 1.10 mg/dL JERARDO Comment:Testing performed by : [address] [address] Glucose 157 70 - 199 mg/dL JERARDO Comment: Interpretive Data Fasting glucose >/= 126 mg/dl is diagnostic for diabetes. Fasting is defined as no caloric intake for at least 8 hours. Fasting glucose between 100 mg/dl to 125 mg/dl is diagnostic of prediabetes. In a patient with classic symptoms of hyperglycemia or hyperglycemic crisis, a random glucose >/= 200 mg/dl is diagnostic for diabetes. In the absence of unequivocal hyperglycemia, results should be confirmed by repeat testing. The classification and Diagnosis of Diabetes Diabetes Care 202; 46: S19-S40. Current interpretive data was last revised 2022. Testing performed by: [address] [address] Calcium 8.9 8.5 - 10.3 mg/dL JERARDO Comment:Testing performed by : [address] [address] Blood 02/22/2025 6:20 AM DIABETES TERRITORY MANAGER 02/22/2025 6:42 AM DIABETES TERRITORY MANAGER us Colt Felix MD LAB BLOOD ORDERABLES Final R esult Performing Organization Address City/State/RUST Co de Phone Number [facility] [address] [facility] Department [place] [address] * X-ray hip right 2+ views (02/21/2025 4:50 PM DIABETES TERRITORY MANAGER) Anatomical Region Laterality Modality Lower Extremities, Hip, Pelvis Right C omputed Radiography 02/21/2025 4:56 PM DIABETES TERRITORY MANAGER Impressions 02/21/2025 4:56 PM DIABETES TERRITORY MANAGER 1. Interval open reduction and internal fixation of the intertrochanteric fracture of the right hip. Near-anatomic alignment. No hardware complication or new acute osseous abnormality. 2. Soft tissue swelling not unexpected given recent surgery. Correlate clinically with regards to potential hematoma. Electronically signed by: Jolene Gomez M.D. Narrative 02/21/2025 4:56 PM DIABETES TERRITORY MANAGER EXAMINATION: XR HIP RIGHT 2 OR 3 VIEWS HISTORY: postoperative care TECHNIQUE: 2 views of the right hip COMPARISON: 02/20/2025 FINDINGS: There has been interval open reduction and internal fixation of the intertrochanteric fracture involving the right hip. There is near-anatomic alignment. No evidence of hardware complication or new acute osseous abnormality. Displaced lesser trochanter fracture fragment noted medial to the femoral neck. There is soft tissue swelling about the hip not unexpected postoperatively. Correlate clinically with regards to potential for hematoma. Procedure Note Jolene Gomez MD - 02/21/2025 EXAMINATION: XR HIP RIGHT 2 OR 3 VIEWS HISTORY: postoperative care TECHNIQUE: 2 views of the right hip COMPARISON: 02/20/2025 FINDINGS: There has been interval open reduction and internal fixation of the intertrochanteric fracture involving the right hip. There is near-anatomic alignment. No evidence of hardware complication or new acute osseous abnormality. Displaced lesser trochanter fracture fragment noted medial to the femoral neck. There is soft tissue swelling about the hip not unexpected postoperatively. Correlate clinically with regards to potential for hematoma. IMPRESSION: 1. Interval open reduction and internal fixation of the intertrochanteric fracture of the right hip. Near-anatomic alignment. No hardware complication or new acute osseous abnormality. 2. Soft tissue swelling not unexpected given recent surgery. Correlate clinically with regards to potential hematoma. Electronically signed by: Jolene Gomez M.D. Colt Felix MD IMG XR PROCEDURES Final Resu lt * FL Fluoroscopy < 1 Hour (02/21/2025 4:16 PM DIABETES TERRITORY MANAGER) Narrative ANKUSH_WALESKA_MHB_MHE - 02/21/2025 4:19 PM DIABETES TERRITORY MANAGER The images from this study are not interpreted by Radiology. Please refer to the physician's procedure / OR operative note. Colt Felix MD G FLUOROSCOPY PROCEDURES F inal Result RAD_[id number]_MHE * ND AN ELECTIVE SUPRAGLOTTIC AIRWAY, ND AN PROCEDURE PLACEHOLDER (02/21/2025 3:34 PM DIABETES TERRITORY MANAGER) Narrative Kadi Holder CRNA - 02/21/2025 3:34 PM DIABETES TERRITORY MANAGER Kadi Holder CRNA 02/21/2025 3:35 PM Airway Patient location: OR Urgency: elective Date/time: 02/21/2025 3:20 PM Indications for airway management: anesthesia Difficult airway: no Staff: Supervising provider: Dank Sibley MD Placed by: SUPERVISOR [employer] REPAIR: Kadi Holder CRNA Emergent airway documentation: Risks and benefits discussed: yes Consent obtained: yes Consent given by: patient Airway prep: Preoxygenated: yes Mask difficulty assessment: 0 - not attempted Spontaneous ventilation during airway: absent Sedation level during airway: deep Final airway details: Final airway type: supraglottic airway Final supraglottic airway: classic SGA size: 3 Cuff pressure: 3 cm H2O Number of attempts: 1no Dank Sibley MD ANESTHESIA ORDERABLES Final Result * (ABNORMAL) Protime-INR (02/21/2025 2:19 PM DIABETES TERRITORY MANAGER) PT 17.7(H) 12.0 - 14.6 sec Comment:Testing performed by : [address] [address] INR 1.4(H) 0.9 - 1.2 JERARDO Comment: Interpretive data Oral anticoagulant therapeutic ranges: Venous thromboembolism prophylaxis or treatment: 2.0-3.0 CARDIOLOGY Standard range: 2.0-3.0 High-intensity range: 2.5-3.5 Refer to indication-specific guidelines for appropriate target ranges for prosthetic heart valve replacement. Current interpretive data was last revised on 2019. Testing performed by: [address] [address] Blood 02/21/2025 2:19 PM DIABETES TERRITORY MANAGER 02/21/2025 2:21 PM DIABETES TERRITORY MANAGER Colt Felix MD LAB BLOOD ORDERABLES Final R esult Performing Organization Address City/[facility]/ZIP Co de Phone Number JERARDO [address] [facility] [employer] [address] * Blood smear review (02/21/2025 5:35 AM DIABETES TERRITORY MANAGER) RBC morphology Consistent with RBC Indicies Comment:Testing performed by : [address] [address] Platelet estimate Automated Count Confirmed JERARDO Comment:Testing performed by : [facility], [address] [place] [address]., [address] Blood 02/21/2025 5:35 AM DIABETES TERRITORY MANAGER 02/21/2025 6:07 AM DIABETES TERRITORY MANAGER Francis Prince MD LAB BLOOD ORDERABLES F inal Result Performing Organization Address [facility]/RUST Co de Phone Number JERARDO [address] [facility] [place] [address] * (ABNORMAL) eGFR (02/21/2025 5:35 AM DIABETES TERRITORY MANAGER) eGFR 43(L) >=60 mL/min/1. 73 m2 Comment: Interpretive Data Reference Interval Normal >/= 90 mL/min/1.73m2 Mildly decreased* 60 - 89 mL/min/1.73m2 Mildly to moderately decreased 45 - 59 mL/min/1.73m2 Moderately to severely decreased 30 - 44 mL/min/1.73m2 Severely decreased 15 - 29 mL/min/1.73m2 Kidney Failure < 15 mL/min/1.73m2 *Relative to young adult level Estimated glomerular filtration rate is determined by the 2020 CKD-EPI equation recommended by the National Kidney Foundation (A Unifying Approach to GFR Estimation: Recommendations of the NKF-ASK Task Force on Reassessing the Inclusion of Race in Diagnosing Kidney Disease, JASN 2020). The CKD-EPI equation should not be used for patients with unstable renal function and has not been validated in children and those over 70. Current interpretive data was last reviewed 2021. Testing performed by: [address] [address] Blood 02/21/2025 5:35 AM DIABETES TERRITORY MANAGER 02/21/2025 6:07 AM DIABETES TERRITORY MANAGER Francis Prince MD LAB BLOOD ORDERABLES F inal Result [facility] [address] [facility] Department [place] [address] * (ABNORMAL) Differential, auto (02/21/2025 5:35 AM DIABETES TERRITORY MANAGER) Neutrophil abs 5.42 1.50 - 6.50 K/cumm Comment:Testing performed by : [address] [address] Imm gran abs 0.03 0.00 - 0.10 K/cumm JERARDO Comment:Testing performed by : [address] [address] Lymphocyte abs 0.44(L) 0.80 - 3.30 K/cumm JERARDO Comment:Testing performed by : [address] [address] Monocyte abs 0.42 0.20 - 0.80 K/cumm JERARDO Comment:Testing performed by : [address] [address] Eosinophil abs 0.00 0.00 - 0.50 K/cumm JERARDO Comment:Testing performed by : [address] [address] Basophil abs 0.02 0.00 - 0.10 K/cumm JERARDO Comment:Testing performed by : [address] [address] Neutrophil pct 85.6 % JERARDO Comment: Interpretive Data Percent cell count reference ranges are not reported, since discordance with absolute values may lead to misinterpretation of CBC data. Current Interpretive Data was last revised on 2017. Testing performed by: [address] [address] Imm gran pct 0.5 % JERARDO Comment: Interpretive Data Percent cell count reference ranges are not reported, since discordance with absolute values may lead to misinterpretation of CBC data. Current Interpretive Data was last revised on 2017. Testing performed by: [address] [address] Lymphocyte pct 7.0 % [facility] Comment: Interpretive Data Percent cell count reference ranges are not reported, since discordance with absolute values may lead to misinterpretation of CBC data. Current Interpretive Data was last revised on 2017. Testing performed by: [address] [address] Monocyte pct 6.6 % [facility] Comment: Interpretive Data Percent cell count reference ranges are not reported, since discordance with absolute values may lead to misinterpretation of CBC data. Current Interpretive Data was last revised on 2017. Testing performed by: [address] [address] Eosinophil pct 0.0 % [facility] Comment: Interpretive Data Percent cell count reference ranges are not reported, since discordance with absolute values may lead to misinterpretation of CBC data. Current Interpretive Data was last revised on 2017. Testing performed by: [address] [address] Basophil pct 0.3 % [facility] Comment: Interpretive Data Percent cell count reference ranges are not reported, since discordance with absolute values may lead to misinterpretation of CBC data. Current Interpretive Data was last revised on 2017. Testing performed by: [address] [address] Blood 02/21/2025 5:35 AM DIABETES TERRITORY MANAGER 02/21/2025 6:07 AM DIABETES TERRITORY MANAGER us Francis Prince MD LAB BLOOD ORDERABLES F inal Result JERARDO [address] [facility] Department [place] [address] * (ABNORMAL) CBC with auto differential (02/21/2025 5:35 AM DIABETES TERRITORY MANAGER) WBC 6.33 3.80 - 9.90 K/cumm Comment:Testing performed by : [address] [address] Hgb 10.4(L) 11.9 - 15.5 g/dL JERARDO Comment:Testing performed by : [address] [address] Hct 33.9(L) 35.6 - 45.5 % JERARDO Comment:Testing performed by : [address] [address] Plt 180 150 - 400 K/cumm CERJOVANI Comment:Testing performed by : [address] [address] MPV 11.2 9.1 - 12.3 fL JERARDO Comment:Testing performed by : [address] [address] RBC 3.62(L) 3.90 - 5.20 M/cumm JERARDO Comment:Testing performed by : [address] [address] MCV 93.6 81.3 - 96.4 fL CERJOVANI Comment: Last at admit, hip fx, osmotic changes Testing performed by: [address] [address] MCH 28.7 27.1 - 33.3 pg CERJOVANI Comment:Testing performed by : [address] [address] MCHC 30.7(L) 32.3 - 35.7 g/dL JERARDO Comment:Testing performed by : [address] [address] RDW CV 12.6 11.1 - 14.9 % JERARDO Comment:Testing performed by : [address] [address] RDW SD 43.4 35.7 - 48.1 fL JERARDO Comment:Testing performed by : [address] [address] NRBC abs 0.00 0.00 - 0.01 K/cumm JERARDO Comment:Testing performed by : [address] [place]., [address] Blood 02/21/2025 5:35 AM DIABETES TERRITORY MANAGER 02/21/2025 6:07 AM DIABETES TERRITORY MANAGER us Francis Prince MD LAB BLOOD ORDERABLES F inal Result Performing Organization Address [facility]/RUST Co de Phone Number [address] [address] * Vitamin D 25 hydroxy (02/21/2025 5:35 AM DIABETES TERRITORY MANAGER) Pathologist [facility] Vitamin D 25-OH 54.0 30.0 - 80.0 ng/mL Blood 02/21/2025 5:35 AM DIABETES TERRITORY MANAGER 02/21/2025 8:27 AM DIABETES TERRITORY MANAGER Result [facility] Francis Prince MD LAB BLOOD ORDERABLES F inal Result Performing Organization Address [facility] de Phone Number [address] [address] * (ABNORMAL) Protime-INR (02/21/2025 5:35 AM DIABETES TERRITORY MANAGER) Pathologist [facility] PT 25.1(H) 12.0 - 14.6 sec Comment:Testing performed by : [address] [address] INR 2.3(H) 0.9 - 1.2 [facility] Comment: Interpretive data Oral anticoagulant therapeutic ranges: Venous thromboembolism prophylaxis or treatment: 2.0-3.0 CARDIOLOGY Standard range: 2.0-3.0 High-intensity range: 2.5-3.5 Refer to indication-specific guidelines for appropriate target ranges for prosthetic heart valve replacement. Current interpretive data was last revised on 2019. Testing performed by: [address] [address] Blood 02/21/2025 5:35 AM DIABETES TERRITORY MANAGER 02/21/2025 6:07 AM DIABETES TERRITORY MANAGER Francis Prince MD LAB BLOOD ORDERABLES F inal Result Performing Organization Address City/[facility]/[place] Co de Phone Number [address] [address] * Phosphorus (02/21/2025 5:35 AM DIABETES TERRITORY MANAGER) Phosphorus, pl 3.4 2.3 - 4.5 mg/dL Comment:Testing performed by : [address] [address] Blood 02/21/2025 5:35 AM DIABETES TERRITORY MANAGER 02/21/2025 6:07 AM DIABETES TERRITORY MANAGER Francis Prince MD LAB BLOOD ORDERABLES F inal Result Performing Organization Address [facility] de Phone Number [address] [address] * Magnesium (02/21/2025 5:35 AM DIABETES TERRITORY MANAGER) Pathologist [facility] Magnesium 2.2 1.4 - 2.5 mg/dL Comment:Testing performed by : [address] [address] Blood 02/21/2025 5:35 AM DIABETES TERRITORY MANAGER 02/21/2025 6:07 AM DIABETES TERRITORY MANAGER Francis Prince MD LAB BLOOD ORDERABLES F inal Result Performing Organization Address [facility]/[place]UST Co de Phone Number [address] [place] [address] * Lipid panel (02/21/2025 5:35 AM DIABETES TERRITORY MANAGER) Cholesterol 149 30 - 199 mg/dL Comment: Interpretive Data Ages < or = 19 years Acceptable: <170 mg/dL Borderline high: 170-199 mg/dL High: >or= 200 mg/dL Ages > or = 20 years Desirable: <200 mg/dL Borderline high: 200-239 mg/dL High: >or= 240 mg/dL Literature References: 1. Expert Panel on Integrated Guidelines for Cardiovascular Health and Risk Reduction in Children and Adolescents. Pediatrics 2011;128:S213 2. NCEP Expert Panel. Circulation 2004;110:227 Current Interpretive Data was last revised on 2017. Testing performed by: [address] [address] Triglycerides 65 <=149 mg/dL JERARDO Comment: Interpretive Data Ages < or = 9 years Acceptable: <75 mg/dL Borderline high: 75-99 mg/dL High: >or= 100 mg/dL Ages 10 to 20 years Acceptable: <90 mg/dL Borderline high: 90-129 mg/dL High: >or= 130 mg/dL Ages > or = 20 years Desirable: <150 mg/dL Borderline high: 150-199 mg/dL High: 200-499 mg/dL Very high: >or= 499 mg/dL Literature References: 1. Expert Panel on Integrated Guidelines for Cardiovascular Health and Risk Reduction in Children and Adolescents. Pediatrics 2011;128:S213 2. NCEP Expert Panel. Circulation 2004;110:227 Current Interpretive Data was last revised on 2017. Testing performed by: [address] [address] HDL 51 >=40 mg/dL JERARDO Comment: Interpretive Data Ages < or = 19 years Acceptable: >45 mg/dL Borderline low: 40-45 mg/dL Low: <40 mg/dL Ages > or = 20 years Desirable: >or= 60 mg/dL Low: <40 mg/dL Literature References: 1. Expert Panel on Integrated Guidelines for Cardiovascular Health and Risk Reduction in Children and Adolescents. Pediatrics 2011;128:S213 2. NCEP Expert Panel. Circulation 2004;110:227 Current Interpretive Data was last revised on 2017. Testing performed by: [address] [address] LDL, calculated 85 <=129 mg/dL JERARDO Comment: Interpretive Data Ages < or = 19 years Acceptable: <110 mg/dL Borderline high: 110-129 mg/dL High: >or= 130 mg/dL Ages > or = 20 years Optimal: <100 mg/dL Near optimal: 100-129 mg/dL Borderline high: 130-159 mg/dL High: >160 mg/dL Calculated using the Austin LDL-C estimating equation. This equation was implemented on 2023. Prior to this date LDL-C was estimated using the Friedewald equation. Literature References: 1. Expert Panel on Integrated Guidelines for Cardiovascular Health and Risk Reduction in Children and Adolescents. Pediatrics 2011;128:S213 2. NCEP Expert Panel. Circulation 2004;110:227 3. Austin Khalil et al. TREVER Cardiol. 2019July 22;5(5):540-548. doi: 10.1001/[email or web address] Current Interpretive Data was last revised on 2023. Testing performed by: [address] [address] Non-HDL Cholesterol 98 mg/dL JERARDO GUTIÉRREZ Comment: Interpretive Data Ages < or = 19 years Acceptable: <120 mg/dL Borderline high: 120-144 mg/dL High: >145 mg/dL Ages > or = 20 years When triglycerides are >200 mg/dL, Non-HDL cholesterol is a secondary target of therapy with treatment goals that are 30 mg/dL greater than the LDL cholesterol target. Literature References: 1. Expert Panel on Integrated Guidelines for Cardiovascular Health and Risk Reduction in Children and Adolescents. Pediatrics 2011;128:S213 2. NCEP Expert Panel. Circulation 2004;110:227 Current Interpretive Data was last revised on 2017. Testing performed by: [address] [address] Chol/HDL ratio 3 JERARDO Comment:Testing performed by : [address] [address] Blood 02/21/2025 5:35 AM DIABETES TERRITORY MANAGER 02/21/2025 6:07 AM DIABETES TERRITORY MANAGER us Francis Prince MD LAB BLOOD ORDERABLES F inal Result JERARDO GUTIÉRREZ [address] [facility] Department [place] [address] * (ABNORMAL) Comprehensive metabolic panel (02/21/2025 5:35 AM DIABETES TERRITORY MANAGER) Sodium 137 135 - 145 mmol/L Comment:Testing performed by : [facility], [address] [place] [address], [place]., [address] Potassium, pl 4.5 3.3 - 4.9 mmol/L JERARDO Comment:Testing performed by : [address], [place]., [address] Chloride 104 97 - 110 mmol/L JERARDO Comment:Testing performed by : [address], [place]., [address] CO2 25 22 - 32 mmol/L [facility]:Testing performed by : [address], [place]., [address] Anion gap 8 2 - 15 mmol/L JERARDO Comment:Testing performed by : [address] [address] BUN 18 6 - 25 mg/dL [facility] Comment:Testing performed by : [address], [place]., [address] Creatinine 1.30(H) 0.60 - 1.10 mg/dL JERARDO Comment:Testing performed by : [address], [place]., [address] Glucose 133 70 - 199 mg/dL [facility] Comment: Interpretive Data Fasting glucose >/= 126 mg/dl is diagnostic for diabetes. Fasting is defined as no caloric intake for at least 8 hours. Fasting glucose between 100 mg/dl to 125 mg/dl is diagnostic of prediabetes. In a patient with classic symptoms of hyperglycemia or hyperglycemic crisis, a random glucose >/= 200 mg/dl is diagnostic for diabetes. In the absence of unequivocal hyperglycemia, results should be confirmed by repeat testing. The classification and Diagnosis of Diabetes Diabetes Care 202; 46: S19-S40. Current interpretive data was last revised 2022. Testing performed by: [address] [address] Calcium 9.3 8.5 - 10.3 mg/dL JERARDO Comment:Testing performed by : [address], [place]., [address] Bilirubin, total 0.6 0.1 - 1.2 mg/dL JERARDO Comment:Testing performed by : [address], [place] [address] Protein, pl 6.3(L) 6.5 - 8.5 g/dL JERARDO Comment:Testing performed by : [facility], [address] [place] [address]., [address] Albumin 3.3(L) 3.5 - 5.0 g/dL JERARDO Comment:Testing performed by : [address] [address] Alk phos 75 40 - 130 Units/L JERARDO Comment:Testing performed by : [address] [address] ALT 48(H) 7 - 45 Units/L JERARDO Comment:Testing performed by : [address], [address] AST 101(H) 10 - 45 Units/L JERARDO Comment:Testing performed by : [address], [address] Blood 02/21/2025 5:35 AM DIABETES TERRITORY MANAGER 02/21/2025 6:07 AM DIABETES TERRITORY MANAGER us Francis Prince MD LAB BLOOD ORDERABLES F inal Result Performing Organization Address [facility]/RUST Co de Phone Number JERARDO [facility] [employer] [place] [address] * Check Sample (02/21/2025 1:00 AM DIABETES TERRITORY MANAGER) ABO Rh A Positive [facility] HCLL OTHER 02/21/2025 1:00 AM DIABETES TERRITORY MANAGER 02/21/2025 1:06 AM DIABETES TERRITORY MANAGER us Floyd Lamas DO LAB BLOOD ORDERABLES Final Res ult Performing Organization Address [facility]/[place]UST Co de Phone Number JERARDO [address] [facility] [employer] [place] [address] * Antibody identification (02/21/2025 12:37 AM DIABETES TERRITORY MANAGER) Antibody ID 2 Anti-K JERARDO Antibody ID 1 Anti-E JERARDO GUTIÉRREZ Blood 02/21/2025 12:3 7 AM DIABETES TERRITORY MANAGER 02/21/2025 1:06 AM DIABETES TERRITORY MANAGER Floyd Lamas DO LAB BLOOD BANK TEST ORDERABLES Edited Result - Final JERARDO GUTIÉRREZ [address] [facility] Department [place] [address] * XR Chest 1 View (02/21/2025 12:20 AM DIABETES TERRITORY MANAGER) Anatomical Region Laterality Modality Body, Chest N/A Computed Radiogr aphy 02/21/2025 12:3 5 AM DIABETES TERRITORY MANAGER Impressions 02/21/2025 12:35 AM DIABETES TERRITORY MANAGER 1. Comminuted intertrochanteric right hip fracture with moderate displacement and varus alignment of the distal fracture fragment. 2. No other fracture is seen. 3. No acute findings of the chest. Electronically signed by: Jorge Macario M.D. Narrative 02/21/2025 12:35 AM DIABETES TERRITORY MANAGER EXAMINATION: XR CHEST 1 VIEW, XR HIPS BILATERAL 2 VIEWS W PELVIS HISTORY: general weakness TECHNIQUE: Single view chest. Single view pelvis. 2 views right hip. 2 views left hip. COMPARISON: No prior. FINDINGS: Right hip: There is a comminuted intertrochanteric hip fracture with moderate displacement and varus alignment of the distal fracture fragment. Lesser trochanter is avulsed. Mild osteoarthritis right hip. Atherosclerotic change. Left hip: No acute fracture. No significant arthropathy. Atherosclerotic change. Pelvis: Right hip fracture as above. No other fracture is seen. IVC filter. Soft tissues are unremarkable. CHEST: Normal Cardia style silhouette and pulmonary vasculature. No infiltrate or effusion. Calcified granuloma right lower chest. Lauro are seen of the left neck unchanged from 07/14/2019. Procedure Note Jorge Macario MD - 02/21/2025 EXAMINATION: XR CHEST 1 VIEW, XR HIPS BILATERAL 2 VIEWS W PELVIS HISTORY: general weakness TECHNIQUE: Single view chest. Single view pelvis. 2 views right hip. 2 views left hip. COMPARISON: No prior. FINDINGS: Right hip: There is a comminuted intertrochanteric hip fracture with moderate displacement and varus alignment of the distal fracture fragment. Lesser trochanter is avulsed. Mild osteoarthritis right hip. Atherosclerotic change. Left hip: No acute fracture. No significant arthropathy. Atherosclerotic change. Pelvis: Right hip fracture as above. No other fracture is seen. IVC filter. Soft tissues are unremarkable. CHEST: Normal Cardia style silhouette and pulmonary vasculature. No infiltrate or effusion. Calcified granuloma right lower chest. Lauro are seen of the left neck unchanged from 07/14/2019. IMPRESSION: 1. Comminuted intertrochanteric right hip fracture with moderate displacement and varus alignment of the distal fracture fragment. 2. No other fracture is seen. 3. No acute findings of the chest. Electronically signed by: Jorge Macario M.D. Floyd Lamas DO IMG XR PROCEDURES Final Result * XR Hips Bilateral W Pelvis 2 View (02/21/2025 12:18 AM DIABETES TERRITORY MANAGER) Anatomical Region Laterality Modality Lower Extremities, Hip, Pelvis Bilateral C omputed Radiography 02/21/2025 12:3 5 AM DIABETES TERRITORY MANAGER Impressions 02/21/2025 12:35 AM DIABETES TERRITORY MANAGER 1. Comminuted intertrochanteric right hip fracture with moderate displacement and varus alignment of the distal fracture fragment. 2. No other fracture is seen. 3. No acute findings of the chest. Electronically signed by: Jorge Macario M.D. Narrative 02/21/2025 12:35 AM DIABETES TERRITORY MANAGER EXAMINATION: XR CHEST 1 VIEW, XR HIPS BILATERAL 2 VIEWS W PELVIS HISTORY: general weakness TECHNIQUE: Single view chest. Single view pelvis. 2 views right hip. 2 views left hip. COMPARISON: No prior. FINDINGS: Right hip: There is a comminuted intertrochanteric hip fracture with moderate displacement and varus alignment of the distal fracture fragment. Lesser trochanter is avulsed. Mild osteoarthritis right hip. Atherosclerotic change. Left hip: No acute fracture. No significant arthropathy. Atherosclerotic change. Pelvis: Right hip fracture as above. No other fracture is seen. IVC filter. Soft tissues are unremarkable. CHEST: Normal Cardia style silhouette and pulmonary vasculature. No infiltrate or effusion. Calcified granuloma right lower chest. [place] are seen of the left neck unchanged from 07/14/2019. Procedure Note Jorge Macario MD - 02/21/2025 EXAMINATION: XR CHEST 1 VIEW, XR HIPS BILATERAL 2 VIEWS W PELVIS HISTORY: general weakness TECHNIQUE: Single view chest. Single view pelvis. 2 views right hip. 2 views left hip. COMPARISON: No prior. FINDINGS: Right hip: There is a comminuted intertrochanteric hip fracture with moderate displacement and varus alignment of the distal fracture fragment. Lesser trochanter is avulsed. Mild osteoarthritis right hip. Atherosclerotic change. Left hip: No acute fracture. No significant arthropathy. Atherosclerotic change. Pelvis: Right hip fracture as above. No other fracture is seen. IVC filter. Soft tissues are unremarkable. CHEST: Normal Cardia style silhouette and pulmonary vasculature. No infiltrate or effusion. Calcified granuloma right lower chest. [place] are seen of the left neck unchanged from 07/14/2019. IMPRESSION: 1. Comminuted intertrochanteric right hip fracture with moderate displacement and varus alignment of the distal fracture fragment. 2. No other fracture is seen. 3. No acute findings of the chest. Electronically signed by: Jorge Macario M.D. Floyd Lamas DO IMG XR PROCEDURES Final Result * (ABNORMAL) eGFR (02/20/2025 11:47 PM DIABETES TERRITORY MANAGER) eGFR 42(L) >=60 mL/min/1. 73 m2 Comment: Interpretive Data Reference Interval Normal >/= 90 mL/min/1.73m2 Mildly decreased* 60 - 89 mL/min/1.73m2 Mildly to moderately decreased 45 - 59 mL/min/1.73m2 Moderately to severely decreased 30 - 44 mL/min/1.73m2 Severely decreased 15 - 29 mL/min/1.73m2 Kidney Failure < 15 mL/min/1.73m2 *Relative to young adult level Estimated glomerular filtration rate is determined by the 2020 CKD-EPI equation recommended by the National Kidney Foundation (A Unifying Approach to GFR Estimation: Recommendations of the NKF-ASK Task Force on Reassessing the Inclusion of Race in Diagnosing Kidney Disease, JASN 2020). The CKD-EPI equation should not be used for patients with unstable renal function and has not been validated in children and those over 70. Current interpretive data was last reviewed 2021. Testing performed by: [address] [address] Blood 02/20/2025 11:4 7 PM DIABETES TERRITORY MANAGER 02/20/2025 11:49 PM DIABETES TERRITORY MANAGER us Floyd Lamas DO LAB BLOOD ORDERABLES Final Res ult [facility] [address] [facility] Department [place] [address] * (ABNORMAL) Differential, auto (02/20/2025 11:47 PM DIABETES TERRITORY MANAGER) Neutrophil abs 7.01(H) 1.50 - 6.50 K/cumm Comment:Testing performed by : [address] [address] Imm gran abs 0.03 0.00 - 0.10 K/cumm JERARDO Comment:Testing performed by : [address] [address] Lymphocyte abs 2.09 0.80 - 3.30 K/cumm JERARDO Comment:Testing performed by : [address] [address] Monocyte abs 0.54 0.20 - 0.80 K/cumm JERARDO Comment:Testing performed by : [address] [address] Eosinophil abs 0.00 0.00 - 0.50 K/cumm JERARDO Comment:Testing performed by : [address] [address] Basophil abs 0.02 0.00 - 0.10 K/cumm JERARDO Comment:Testing performed by : [address] [address] Neutrophil pct 72.3 % JERARDO Comment: Interpretive Data Percent cell count reference ranges are not reported, since discordance with absolute values may lead to misinterpretation of CBC data. Current Interpretive Data was last revised on 2017. Testing performed by: [address] [address] Imm gran pct 0.3 % [facility] Comment: Interpretive Data Percent cell count reference ranges are not reported, since discordance with absolute values may lead to misinterpretation of CBC data. Current Interpretive Data was last revised on 2017. Testing performed by: [address] [address] Lymphocyte pct 21.6 % [facility] Comment: Interpretive Data Percent cell count reference ranges are not reported, since discordance with absolute values may lead to misinterpretation of CBC data. Current Interpretive Data was last revised on 2017. Testing performed by: [address] [address] Monocyte pct 5.6 % [facility] Comment: Interpretive Data Percent cell count reference ranges are not reported, since discordance with absolute values may lead to misinterpretation of CBC data. Current Interpretive Data was last revised on 2017. Testing performed by: [address] [address] Eosinophil pct 0.0 % [facility] Comment: Interpretive Data Percent cell count reference ranges are not reported, since discordance with absolute values may lead to misinterpretation of CBC data. Current Interpretive Data was last revised on 2017. Testing performed by: [address] [address] Basophil pct 0.2 % [facility] Comment: Interpretive Data Percent cell count reference ranges are not reported, since discordance with absolute values may lead to misinterpretation of CBC data. Current Interpretive Data was last revised on 2017. Testing performed by: [address] [address] Blood 02/20/2025 11:4 7 PM DIABETES TERRITORY MANAGER 02/20/2025 11:49 PM DIABETES TERRITORY MANAGER us Floyd Lamas DO LAB BLOOD ORDERABLES Final Res ult JERARDO [address] [facility] Department [place] [address] * (ABNORMAL) CBC with auto differential (02/20/2025 11:47 PM DIABETES TERRITORY MANAGER) [facility] WBC 9.69 3.80 - 9.90 K/cumm Comment:Testing performed by : [address] [address] Hgb 11.7(L) 11.9 - 15.5 g/dL JERARDO Comment:Testing performed by : [address] [address] Hct 36.4 35.6 - 45.5 % JERARDO Comment:Testing performed by : [address] [address] Plt 233 150 - 400 K/cumm JERARDO Comment:Testing performed by : [address] [address] MPV 9.9 9.1 - 12.3 fL JERARDO Comment:Testing performed by : [address] [address] RBC 4.14 3.90 - 5.20 M/cumm JERARDO Comment:Testing performed by : [address] [address] MCV 87.9 81.3 - 96.4 fL JERARDO Comment:Testing performed by : [address] [address] MCH 28.3 27.1 - 33.3 pg JERARDO Comment:Testing performed by : [address] [address] MCHC 32.1(L) 32.3 - 35.7 g/dL JERARDO Comment:Testing performed by : [address] [address] RDW CV 12.8 11.1 - 14.9 % JERARDO Comment:Testing performed by : [address] [address] RDW SD 40.8 35.7 - 48.1 fL JERARDO Comment:Testing performed by : [address] [address] NRBC abs 0.00 0.00 - 0.01 K/cumm JERARDO Comment:Testing performed by : [address] [address] Blood 02/20/2025 11:4 7 PM DIABETES TERRITORY MANAGER 02/20/2025 11:49 PM DIABETES TERRITORY MANAGER Posterous LAB BLOOD ORDERABLES Final Res ult Performing Organization Address City/[facility]/ZIP Co de Phone Number JERARDO [address] [place] [address] * (ABNORMAL) Protime-INR (02/20/2025 11:47 PM DIABETES TERRITORY MANAGER) PT 32.2(H) 12.0 - 14.6 sec Comment:Testing performed by : [facility], [address] [place] [address]., [address] INR 3.2(H) 0.9 - 1.2 JERARDO Comment: Interpretive data Oral anticoagulant therapeutic ranges: Venous thromboembolism prophylaxis or treatment: 2.0-3.0 CARDIOLOGY Standard range: 2.0-3.0 High-intensity range: 2.5-3.5 Refer to indication-specific guidelines for appropriate target ranges for prosthetic heart valve replacement. Current interpretive data was last revised on 2019. Testing performed by: [facility], [address] [place] [address]., [address] Blood 02/20/2025 11:4 7 PM DIABETES TERRITORY MANAGER 02/20/2025 11:49 PM DIABETES TERRITORY MANAGER Posterous LAB BLOOD ORDERABLES Final Res ult Performing Organization Address City/[facility]/ZIP Co de Phone Number JERARDO [address] [place] [address] * (ABNORMAL) Type and screen (02/20/2025 11:47 PM DIABETES TERRITORY MANAGER) [place], indirect Positive(A) JERARDO ABO Rh A Positive JERARDO Blood 02/20/2025 11:4 7 PM DIABETES TERRITORY MANAGER 02/20/2025 11:49 PM DIABETES TERRITORY MANAGER Narrative JERARDO - 02/21/2025 12:37 AM DIABETES TERRITORY MANAGER Has the patient had Daratumumab or Isatuximab in the past 6 months?->Unknown Floyd Lamas LAB BLOOD BANK TEST ORDERABLES Final Result JERARDO [address] [facility] Department [place] [address] * (ABNORMAL) Comprehensive metabolic panel (02/20/2025 11:47 PM DIABETES TERRITORY MANAGER) Sodium 138 135 - 145 mmol/L Comment:Testing performed by : [address] [address] Potassium, pl 4.0 3.3 - 4.9 mmol/L JERARDO Comment:Testing performed by : [address] [address] Chloride 103 97 - 110 mmol/L JERARDO Comment:Testing performed by : [address] [address] CO2 27 22 - 32 mmol/L JERARDO Comment:Testing performed by : [address] [address] Anion gap 8 2 - 15 mmol/L JERARDO Comment:Testing performed by : [address] [address] BUN 19 6 - 25 mg/dL JERARDO Comment:Testing performed by : [address] [address] Creatinine 1.33(H) 0.60 - 1.10 mg/dL JERARDO Comment:Testing performed by : [address] [address] Glucose 112 70 - 199 mg/dL JERARDO Comment: Interpretive Data Fasting glucose >/= 126 mg/dl is diagnostic for diabetes. Fasting is defined as no caloric intake for at least 8 hours. Fasting glucose between 100 mg/dl to 125 mg/dl is diagnostic of prediabetes. In a patient with classic symptoms of hyperglycemia or hyperglycemic crisis, a random glucose >/= 200 mg/dl is diagnostic for diabetes. In the absence of unequivocal hyperglycemia, results should be confirmed by repeat testing. The classification and Diagnosis of Diabetes Diabetes Care 2021; 46: S19-S40. Current interpretive data was last revised 2022. Testing performed by: [address] [address] Calcium 10.0 8.5 - 10.3 mg/dL JERARDO Comment:Testing performed by : [address] [address] Bilirubin, total 0.4 0.1 - 1.2 mg/dL JERARDO Comment:Testing performed by : [address] [address] Protein, pl 6.9 6.5 - 8.5 g/dL JERARDO Comment:Testing performed by : [address] [address] Albumin 3.7 3.5 - 5.0 g/dL [facility] Comment:Testing performed by : [address] [address] Alk phos 75 40 - 130 Units/L [facility] Comment:Testing performed by : [address] [address] ALT <5(L) 7 - 45 Units/L JERARDO Comment:Testing performed by : [address] [address] AST 21 10 - 45 Units/L [facility] Comment:Testing performed by : [address] [address] Blood 02/20/2025 11:4 7 PM DIABETES TERRITORY MANAGER 02/20/2025 11:49 PM DIABETES TERRITORY MANAGER us Floyd Lamas DO LAB BLOOD ORDERABLES Final Res ult JERARDO GUTIÉRREZ [address] [facility] Department of Laboratories [place], [place] [id number] * (ABNORMAL) Protime-INR (01/26/2025 12:32 PM DIABETES TERRITORY MANAGER) INR 3.1(H) [facility] Comment: Reference Range 0.9-1.1 Moderate-intensity Warfarin Therapy 2.0-3.0 Higher-intensity Warfarin Therapy 3.0-4.0 PT 31.3(H) 9.0 - 11.5 sec [facility] Comment: For additional information, please refer to http://MangoPlate.Wingu/faq/GXV267 (This link is being provided for informational/ educational purposes only.) Blood 01/26/2025 12:3 2 PM DIABETES TERRITORY MANAGER 01/26/2025 12:32 PM DIABETES TERRITORY MANAGER Kasi Moya MD LAB BLOOD ORDERABLES Fin al Result Performing Organization Address [facility] de Phone Number [email or web address] [address] [place] [address] * (ABNORMAL) Protime-INR (01/18/2025 7:03 AM CDT) INR 3.7(H) [facility] Comment: Reference Range 0.9-1.1 Moderate-intensity Warfarin Therapy 2.0-3.0 Higher-intensity Warfarin Therapy 3.0-4.0 PT 36.2(H) 9.0 - 11.5 sec [facility] Comment: For additional information, please refer to http://MangoPlate.Wingu/faq/ANO525 (This link is being provided for informational/ educational purposes only.) 01/18/2025 7:03 AM CDT 01/18/2025 7:03 AM CDT Kasi Moya MD LAB BLOOD ORDERABLES Fin al Result Performing Organization Address [facility] Co de Phone Number [email or web address] [address] [place] [address] * (ABNORMAL) Protime-INR (12/17/2024 7:01 AM CDT) INR 2.9(H) [facility] Comment: Reference Range 0.9-1.1 Moderate-intensity Warfarin Therapy 2.0-3.0 Higher-intensity Warfarin Therapy 3.0-4.0 PT 28.9(H) 9.0 - 11.5 sec [facility] Comment: For additional information, please refer to http://education.Wingu/faq/MNF979 (This link is being provided for informational/ educational purposes only.) 12/17/2024 7:01 AM CDT 12/17/2024 7:01 AM CDT Kasi Moya MD LAB BLOOD ORDERABLES Fin al Result [email or web address] [address] [place] [address] * MAMMOGRAPHY (08/10/2024 1:30 PM CDT) Anatomical Region Laterality Modality Breast Mammography Historical Provider IMG MAMMO PROCEDURES Helene l Result * Dexa TBS Axial Skeleton Bone Density 1 or more sites (04/16/2023 12:30 PM DIABETES TERRITORY MANAGER) Anatomical Region Laterality Modality Wrist, Body N/A Radiographic Rosa Maria ging Narrative 04/21/2023 9:42 PM DIABETES TERRITORY MANAGER Patient Name: Rosa Maria Thompson Date of : 1950 Date of scan: 04/16/2023 Bone mineral density was performed on a Hologic Discovery Densitometer. Based on machine cross-calibration and precision studies the least significant changes of this densitometer is 0.024 g/cm2 at the spine, 0.020 g/cm2 at the total proximal femur, and 0.014g/cm2 at the forearm. HISTORY: This is a 72 y.o. postmenopausal female with a history of osteoporosis and thyroid disease. She reports that she has never smoked. She has never used smokeless tobacco. Currently on treatment with calcium, anticoagulants, and thyroid hormone, previously treated with glucocorticoids, and current complaint of back pain and leg pain. INDICATIONS: Menopause status, history of glucocorticoids use, and history of osteoporosis. FINDINGS: BONE MINERAL DENSITY OF THE LUMBAR SPINE Bone Mineral Density (BMD) of the lumbar spine was measured from L1-L4 and the average density was calculated to be 0.866 gm/cm2. This corresponds to a T-score (standard deviations from the mean of young adults) of -1.6. There is no previous study available for comparison. BONE MINERAL DENSITY OF THE PROXIMAL FEMUR Bone Mineral Density (BMD) of the left hip total was found to be 0.655 gm/cm2. This corresponds to a T-score standard deviations from the mean of young adults of -2.4. Femoral neck is 0.599 gm/cm2 with a T-score (standard deviations from the mean of young adults) of -2.3. There is no previous study available for comparison. SUMMARY: Bone mineral density shows evidence of low bone mass at the lumbar spine and proximal femur and moderately increased fracture risk (Osteopenia). The lumbar spine Trabecular Bone Score is 1.265 which suggests partially degraded bone microarchitecture compared to the general population. Final decisions regarding diagnostic or therapeutic recommendations should include BMD, TBS, additional clinical risk factors as well the clinical context of the patient. Please see attached TBS results for further details. ADDITIONAL COMMENTS: Postmenopausal Women and Men Over 50: Diagnostic criteria: Osteoporosis: BMD at or below -2.5 T-score; Osteopenia (low bone mass): BMD between -1.0 and -2.5 T-score. If the patient has a history of a fragility fracture, a fracture that occurred with trauma equivalent to a fall from a standing position or less, then the diagnosis is osteoporosis regardless of bone density. Please note that there is an artifact in the lumbar spine scan that is unable to be removed. The history and data sections of the bone mineral density scan were prepared by Zoë Echols) STANISLAW who is accredited by the International Society of Clinical Densitometry. The overall patient assessment and scan interpretation were performed by Yolanda Vila MD who is certified by the International Society of Clinical Densitometry. [id number] Yolanda Vila MD [facility] DXA PROCEDURES Final R esult * Hepatitis panel, acute (07/12/2019 8:16 PM CDT) Pathologist [facility] Hep A IgM Nonreactive Nonreactive [facility] Comment: Interpretive Data: If Hep A IgM Ab is reported as Equivocal, a new sample should be drawn in two weeks for testing. Current interpretive data was last revised on 19. Hep B core IgM Nonreactive Nonreactive [facility] Comment: Interpretive Data If HepB Core IgM Ab is reported as Equivocal, a new sample should be drawn in two weeks for testing. Current interpretive data was last revised on 19. Hep C Ab Nonreactive Nonreactive [facility] HepBsAg Nonreactive Nonreactive [facility] Blood specimen (specimen) 07/12/2019 8:16 PM CDT 07/12/2019 8:28 PM CDT us Edelmira Montero NP LAB MICROBIOLOGY - GENERAL O RDERABLES Edited Result - Final JERARDO RÍOS [facility] [place] [address] from Last 3 Months or Most Recently Relevant to Health Maintenance Insurance [facility] MEDICARE ADVANTAGE [facility]ICARE Address: [facility] [address] [place] [address] [facility] MEDICARE ADVANTAGE [facility] MEDICARE Address: [address] [place] [phone] [facility] MDCR HMO REF [facility] MEDIC[facility] Address: [address] [address] [facility] MEDICARE ADVANTAGE [facility] MEDICARE Address: [address] [place] [phone] Advance Directives For more information, please contact: [phone] * Full Code (Latest Code Status on File) Date Activated Date Inactivated Comments 02/21/2025 3:14 AM 02/26/2025 5:46 PM * Full Code Date Activated Date Inactivated Comments 07/09/2019 12:59 AM 07/24/2019 1:17 AM Care Teams Bull Driver Relationship Specialty Start Date End Date Kasi Moya MD [address] [place] [address] PCP - General Internal Medicine 09/21/19 Martin Mccarthy MD [address] [address] Referring Physician Transplant 09/09/18
--- OUTSIDE RECORDS SUMMARY | 2025-03-01 19:08 | XMS_ITS | Encounter Summary ---
Author Organization [facility] Facility Care Team Providers Care Court Worker Name Role Phone Kasi Moya MD Primary Care Provider + Tre Alvarado MD Primary Care Provider [phone] Kasi Moya MD Primary Care Provider + Martin Mccarthy MD Unavailable [phone] Judit Matthews LPN Unavailable [phone] Edel Luz Primary Care Provide r Kasi Moya MD Primary Care Provider + Encounter Details Date Type Department Care Team (Latest Contact Info) Description 05/21/2017 Orders Only [facility]IN[facility] ProviderRajendra MD [address] [place] [id number] Social History Tobacco Use Types Packs/Day Years Used Date Smoking Tobacco: Never Comments Unknown Sex and Gender Information Value Date Recorded Sex Assigned at Not on file Legal Sex Female 8:09 PM MANAGER MERCHANDISING Gender Identity Not on file Sexual Orientation Not on file documented as of this encounter Plan of Treatment Not on file documented as of this encounter Procedures Procedure Name Priority Date/Time Associated Diagnosis Comments SCAN - LABS 05/21/2017 12:00 AM MANAGER MERCHANDISING documented in this encounter Results * SCAN - LABS (05/21/2017 12:00 AM MANAGER MERCHANDISING) Narrative 05/21/2017 12:00 AM MANAGER MERCHANDISING Ordered by an unspecified provider. us Historical Provider Final Res ult documented in this encounter Visit Diagnoses Not on filedocumented in this encounter Additional Health Concerns Infection Onset Date Last Indicated Resolved Time COVID: Suspected Comment:Removed after ID review. 07/11/2019 Carmelasurya Jarrell Yesenia 07/08/2019 07/08/2019 07/11/2019 9:38 AM C DT COVID: Suspected Comment:ID/IP Review - Isolation precautions have been cleared. Nehal March, SERVICE COORDINATOR [facility] 07/09/2019 07/09/2019 07/09/2019 0 6:43 AM CDT COVID: Suspected 10/24/2022 10/24/2022 10/24/2022 10:49 AM CDT documented as of this encounter Care Teams Court Worker Relationship Specialty Start Date End Date Kasi Moya MD [address] [place] [address] PCP - General 04/08/17 07/03/17 Tre Alvarado MD [address] [place] [address] PCP - General 07/04/17 08/12/17 Kasi Moya MD [address] [place] [address] PCP - General 08/13/17 09/09/19 Edel Luz PA [address] [place] [address] PCP - General 09/10/19 09/20/19 Kasi Moya MD [address] [place] [address] PCP - General Internal Medicine 09/21/19 Martin Mccarthy MD [id number] [place] [address] Referring Physician Transplant 09/09/18 Judit Matthews, HALL PORTER [id number] [place] [address] Neonatal Doctor 07/12/19 07/12/19 documented as of this encounter
--- OUTSIDE RECORDS SUMMARY | 2025-03-01 19:08 | XMS_ITS | Encounter Summary ---
Author Organization [facility] Healthcare Address [address] [place] [address] Care Team Providers Care Graphite Grinder Name Role Phone Martin Mccarthy MD Unavailable [phone] Kasi Moya MD Primary Care Provider + Reason for Visit * Reason Onset Date Comments Additional Services Or Orders 02/28/2025 Encounter Details Date Type Department Care Team (Late st Contact Info) Description 02/28/2025 Telephone [facility] Primary Care [address] [place] [address] Kasi Moya MD [address] [place] [address] Additional Services Or Orders Social History Tobacco Use Types Packs/Day Years [...] 02/21/2025 How often do you attend chur or protestant services? More than 4 times per year 02/21/2025 Do you belong to any clubs o r organizations such as islam groups, unions, fraternal or athletic groups, or [...] any time in the past 12 m [facility], were you homeless or living in a half-way (including now)? No 02/21/2025 [facility] Utilities Answer Date Recorded In the past 12 months has th [employer], gas, oil, or water company threatened [...] on file Legal Sex Female 8:09 PM FURNACE REPAIR MECHANIC Gender Identity Not on file Sexual Orientation Not on file documented as of this encounter Miscellaneous Notes * Telephone Encounter - Margarita Jaime MA - 02/28/2025 4:22 PM CST Pt sister Katarina advised that the where sent to [place] ACE REPAIR MECHANIC * Telephone Encounter - Vanesa Waters - 02/28/2025 3:41 PM CST Call Back Caller???s Concern: Patient's sister Katarina (on HIPAA) calling to make sure the INR orders sent to [facility] are faxed to this number: [phone] EXAM PROCTOR explained that the practice was working on getting the orders over right now. Please call Katarina when the INR Lab orders for patient are faxed to [facility]. Does message need to be routed? Yes-Action Needed ACE REPAIR MECHANIC * Telephone Encounter - Ivonne Holman MA - 02/28/2025 3:16 PM CST [facility] advised that [facility] can not see the pt due to insuffiate staffing. Advised Katarina. Will fax orderto [facility] for PT/INR ACE REPAIR MECHANIC * Telephone Encounter - Ivonne Holman MA - 02/28/2025 3:00 PM CST Returned call to Sola, she will call me back ACE REPAIR MECHANIC * Telephone Encounter - Ivonne Holman MA - 02/28/2025 11:58 AM FURNACE REPAIR MECHANIC Spoke with [facility] and she took message to give to nurse. ACE REPAIR MECHANIC * Telephone Encounter - Kasi Moya MD - 02/28/2025 11:24 AM FURNACE REPAIR MECHANIC Okay to do home health nursing so they can go out and drawn INR. ACE REPAIR MECHANIC * Telephone Encounter - Ivonne Holman MA - 02/28/2025 10:57 AM FURNACE REPAIR MECHANIC See message. Ortho has ordered home PT but not nursing. ACE REPAIR MECHANIC * Telephone Encounter - Coco Tello - 02/28/2025 10:26 AM CST Call Back Caller???s Concern: Pt's sister Katarina calling as she has not heard back as to whether or not Dr Moya will approve for patient to have INR at home. If not, she should would prefer to go to [facility] Does message need to be routed? Yes-Action Needed ACE REPAIR MECHANIC * Telephone Encounter - Steve Jaramillo - 02/28/2025 8:31 AM CST Additional Services or Orders Type of Service Requested:Home Health Duration/Number of Visits: eval and treat Is a verbal order acceptable? no Reason for Request (e.g. condition/symptom, date of COVID exposure if applicable): Patient is needing her PT INR drawn [place] but they are unable to transport her to [facility] as she's home bound Details Regarding Additional Services (e.g. type of home health, type of equipment, type of test, etc.): home health Where will services be performed? (if outside of the practice, facility name, address, phone/fax offacility): Doctors recommendation Additional Comments: requesting high priority as her pt inr is supposed to be done today Does message need to be routed? Yes-Action Needed ACE REPAIR MECHANIC documented in this encounter Plan of Treatment Scheduled Orders Name Type Priority Associated Diagnoses Orde r Schedule Protime-INR Lab Routine Lupus anticoagulant disorder Expected: 03/03/2025, Expires: 02/28/2026 documented as of this encounter Visit Diagnoses Diagnosis Lupus anticoagulant disorder- Primary Primary hypercoagulable state documented in this encounter Care Teams Graphite Grinder Relationship Specialty Start Date End Date Kasi Moya MD [address] [place] [address] PCP - General Internal Medicine 09/21/19 Martin Mccarthy MD [address] [address] Referring Physician Transplant 09/09/18 documented as of this encounter
--- OUTSIDE RECORDS SUMMARY | 2025-03-01 19:08 | XMS_ITS | Encounter Summary ---
Author Organization [facility] Healthcare Address [address] [place] [address] Care Team Providers Care Diabetes Solutions Specialist Name Role Phone Kasi Moya MD Primary Care Provider + Martin Mccarthy MD Unavailable [phone] Edel Luz Primary Care Provide r Kasi Moya MD Primary Care Provider + Encounter Details Date Type Department Care Team (Latest Contact Info) Description 07/14/2019 Ophth Exam Ophthalmology Mj Willis MD PhD [address] [facility] [address] [place] [address] Social History Tobacco Use Types Packs/Day Years Used Date Smoking Tobacco: Never Smokeless Tobacco: Never Alcohol Use Standard Drinks/Week Comments No 0 (1 standard drink = 0.6 oz pur e alcohol) PHQ-2 Answer Date Recorded PHQ-2 Score 0 11/12/2018 Comments Unknown Sex and Gender Information Value Date Recorded Sex Assigned at Not on file 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 Gender Identity Not on file Sexual Orientation Not on file documented as of this encounter Functional Status * Question Answer Date of Assessment Author MAP (mmHg) 89 07/17/2019 8:35 PM CDT Nisha Escalera RN * Nona Fall Risk Question Answer Date of Assessment Author History of Falling 0 07/17/2019 10 :00 AM Toshia Bueno, RN Secondary Diagnosis 15 07/17/2019 1 0:00 AM Toshia Bueno, ribbon hand Aids 0 07/17/2019 10:00 AM Toshia Bueno, RN Intravenous Therapy/Heparin/Saline Lock 20 07/17/2019 10:00 AM Toshia Bueno, RN Gait/Transferring 20 07/17/2019 10: 00 AM Toshia Bueno, ES Mental Status 0 07/17/2019 10:00 AM Toshia Bueno, RN Auto Low/High - if selected proceed to interventions (retired) High risk-per unit/hospital protocol 07/17/2019 10:00 AM Toshia Bueno RN Morse Fall Risk Score (Score >= 45 places fall precaution order) 50 07/17/2019 10:00 AM Toshia Bueno, RN * Prabhjot Scale Question Answer Date of Assessment Author Sensory Perceptions 4 07/17/2019 9:55 AM CD Toshia Barrera RN Moisture 4 07/17/2019 9:55 AM Toshia Ward, RN Activity 2 07/17/2019 9:55 AM CDToshia Guevara, RN Mobility 2 07/17/2019 9:55 AM Toshia Ward, RN Nutrition 1 07/17/2019 9:55 AM Toshia Ward, RN Friction and Shear 2 07/17/2019 9:55 AM Toshia Bueno RN Prabhjot Scale Score 15 07/17/2019 9:55 AM Toshia Bueno, RN * Question Answer Date of Assessment Author BP Location Left arm 07/17/2019 4:23 AM Hawa Luis BP Method Automatic 07/17/2019 4:23 AM Hawa Luis * Fall Risk Interventions Question Answer Date of Assessment Author All Low Fall Interventions Applied No 07/17/2019 10:00 AM Toshia Bueno, RN All Low Fall Interventions EXCEPT: Call light in reach;[place] to surroundings 07/17/2019 10:00 AM Toshia Bueno, RN All Moderate Fall Interventions Applied No 07/17/2019 10:00 AM Toshia Bueno RN All Moderate Fall Risk Interventions EXCEPT: Remain with patient while toileting 07/17/2019 10:00 AM Toshia Bueno RN All High Fall Risk Interventions Applied Yes 07/17/2019 10:00 AM Toshia Bueno RN All High Risk Interventions EXCEPT: Near RN station/area 07/17/2019 10:00 AM Toshia Bueno RN Additional Interventions Applied Over-bed table on non-exit side;Exit bed on strong/preferred side;Bed/chair alarm 07/17/2019 10:00 AM Toshia Bueno, ES Reason For Exception(s) oriented 07/17/19 10:00 AM Toshia Bueno RN Reason For Exception(s) martinez 07/17/19 10:00 AM Toshia Bueno RN Reason For Exception(s) not impulsive 07/17/19 10:00 AM Toshia Bueno, ES * Question Answer Date of Assessment Author Protective Foam Dressing Location Lumbar vertebrae;Thoracic vertebrae 07/17/2019 3:00 PM Toshia Bueno, ES * B.M.A.T. - Bedside Mobility Assessment Tool for Nurses Question Answer Date of Assessment Author Is patient able to participate in the BMAT? Yes 07/17/2019 10:00 AM Toshia Bueno RN Reason patient is unable to participate in BMAT Inability to follow directions 07/16/2019 12:00 AM Emy Marie RN BMAT Level Level 1 - Red 07/17/2019 10:00 AM Toshia Bueno RN Level 1 Equipment Use total lift with sling and/or repositioning sheet 07/17/2019 10:00 AM Toshia Bueno, RN * Pressure Injury Prevention Question Answer Date of Assessment Author Pressure Ulcer Prevention Interventions Keep skin clean and dry (Sensory Perception/Moisture);E stablish turning schedule (Sensory Perception/Activity/Mo bility);Apply moisture barrier product (Moisture);Educate caregivers regarding pressure ulcer prevention (Sensory Perception);Change pads/diapers as soon as soiling is noted (Moisture);Reposition at regular intervals while in the chair (Activity);Float Heels (Activity/Mobility);Us e pillows/wedge for positioning (Activity/Mobility);Us e draw sheet when pulling patient up in bed (Friction & Shear) 07/17/2019 9:55 AM CDT Toshia Gonzalez, RN * Integumentary Question Answer Date of Assessment Author Skin Color Appropriate for ethnicity 07/17/2019 9:55 AM NAINT Toshia Gonzalez, RN Skin Condition/Temp Warm;Dry 07/17/2019 9 :55 AM CDT Toshia Gonzalez, RN Skin Integrity Surgical incision 07/17/2019 9:5 5 AM CDT Toshia Gonzalez, RN Skin Turgor Non-tenting 07/17/2019 9:55 AM CDT Toshia Gonzalez, RN Integumentary Additional Assessments Yes-Prabhjot 07/17/2019 9:55 AM CDT Toshia Gonzalez, ES Integumentary (WDL) X 07/17/2019 9 :55 AM CDT Toshia Gonzalez, RN Skin Location upper head 07/17/2019 9:55 AM CDT Toshia Gonzalez, RN * Wound (LDAs) Question Answer Date of Assessment Author Type of Wound (LDA) Surgical site;Wound 07/16/2019 8:1 0 AM Yenny Helms, ES * Question Answer Date of Assessment Author Special Mattress Other (Comment) 07/16/2019 9:00 AM CD T Yenny Austin, RN * Question Answer Date of Assessment Author Edema No pitting 07/17/2019 9:55 AM CDToshia Guevara, RN RUE Edema No pitting 07/17/2019 9:55 AM CDT Toshia Ramsay, RN RLE Edema No pitting 07/17/2019 9:55 AM Toshia Ward, RN LUE Edema No pitting 07/17/2019 9:55 AM CDToshia Guevara, RN LLE Edema No pitting 07/17/2019 9:55 AM CDT Toshia Ramsay, RN Edema Right upper extremit y;Left upper extremity;Right lower extremity;Left lower extremity 07/17/2019 9:55 AM CDT Toshia Gonzalez, RN * Question Answer Date of Assessment Author Affect Calm 07/15/2019 8:00 PM CDT Emy Townsend RN Mood Content 07/15/2019 8:00 PM CDT Emy Townsend RN * Question Answer Date of Assessment Author Percent Meal Eaten (%) 0 07/16/2019 6:45 PM CDT Yenny Austin, ES * Question Answer Date of Assessment Author BP Location Left arm 07/17/2019 4:23 AM CDT Hawa Norton BP Method Automatic 07/17/2019 4:23 AM CDT Hawa Norton * Question Answer Date of Assessment Author Bed In Lowest Position Yes 07/17/2019 11:00 P M CDT Nisha Grady, ES Bed Wheels Locked Yes 07/17/2019 11:00 PM CDT Nisha Grady, ES * Fall Risk Interventions Question Answer Date of Assessment Author All Low Fall Interventions Applied No 07/17/2019 10:00 AM Toshia Bueno, ES All Low Fall Interventions EXCEPT: Call light in reach;[place] to surroundings 07/17/2019 10:00 AM Toshia Bueno, RN All Moderate Fall Interventions Applied No 07/17/2019 10:00 AM Toshia Bueno, RN All Moderate Fall Risk Interventions EXCEPT: Remain with patient while toileting 07/17/2019 10:00 AM Toshia Bueno, ES All High Fall Risk Interventions Applied Yes 07/17/2019 10:00 AM Toshia Bueno, RN All High Risk Interventions EXCEPT: Near RN station/area 07/17/2019 10:00 AM Toshia Bueno, RN Additional Interventions Applied Over-bed table on non-exit side;Exit bed on strong/preferred side;Bed/chair alarm 07/17/2019 10:00 AM Toshia Bueno, RN Reason For Exception(s) oriented 07/17/19 10:00 AM Toshia Bueno, RN Reason For Exception(s) martinez 07/17/19 10:00 AM Toshia Bueno, RN Reason For Exception(s) not impulsive 07/17/19 10:00 AM NAINT Toshia Gonzalez, RN * Question Answer Date of Assessment Author Skin Care Protective barrier 07/17/2019 5: 00 AM NAINT Mary Back, ES Hygiene Bathed with chlorhexidine gluconate (CHG);Martinez care;Ariadna care 07/17/2019 3:00 PM CDT Toshia Gonzalez RN Oral Care Mouth swabbed;with mouthwash;Mouth rinsed;Mouth suctioned;Lip moisturizer applied 07/17/2019 5:00 AM NAINT Mary Back, ES Hygiene Level of Assistance Dependent 07/17/2019 3:00 PM CDT Toshia Gonzalez RN Toileting: Assistance with Perineal hygiene 07/17/2019 5:00 AM NAINT Mary Back RN * Nutrition Question Answer Date of Assessment Author Feeding Level of Assistance Total assist 07/17/2019 10:00 AM NAINT Toshia Gonzalez RN Appetite Poor 07/17/2019 10:00 AM CDT Toshia Koch RN documented as of this encounter Mental Status * Question Answer Entry Date Author Level of Consciousness Alert;Awake 0 8:00 PM CDT Nisha Grady, ES Orientation Oriented X4 (person, place, time, situation) 07/17/2019 8:00 PM CDT Nisha Grady RN * Question Answer Entry Date Author Neuro (WDL) X 07/16/2019 4:08 AM CDT Lee Ann Chahal NP * Question Answer Entry Date Author Neuro (WDL) X 07/17/2019 9:55 AM CDT Toshia Ramsay RN Other Neuro Symptoms Fatigue 07/16/2019 8:17 PM Mary Rey RN * Short Blessed Test Question Answer Entry Date Author Short Blessed Comments Unable to partici palomares in formal cognitive assessment 07/15/2019 1:03 PM CDT David Gaston * Question Answer Entry Date Author Feature 1: Acute Onset or Fl uctuating Course Positive 07/15/2019 1:03 PM David Dutta Feature 2: Inattention Positive 07/15/2019 1:03 PM David Dutta Feature 4: Disorganized Thinking Positive 07/15/19 1:03 PM David Dutta * Overall CAM-ICU Answer Entry Date Author Positive 07/15/2019 1:03 PM CDT Mason Gaston documented in this encounter Plan of Treatment Not on file documented as of this encounter Visit Diagnoses Not on filedocumented in this encounter Additional Health Concerns Infection Onset Date Last Indicated Resolved Time COVID: Suspected 10/24/2022 10/24/2022 10/24/2022 10:49 AM CDT documented as of this encounter Eye Exam Pupils Dark Light Shape React APD Right eye 3 2 Round Brisk None Left eye 3 2 Round Brisk None External Exam Right eye Left eye External Normal Normal Slit Lamp Exam Right eye Left eye Lids/Lashes Normal Normal Conjunctiva/Sclera White and quiet White and devyn et Cornea Clear Clear Anterior Chamber Deep and quiet Deep and quiet Iris Round and reactive Round and tobi ctive Lens PCIOL PCIOL Vitreous Normal Normal Fundus Exam Right eye Left eye Disc Normal Normal C/D Ratio 0.2 0.2 Macula Normal Normal Vessels Normal Normal Periphery Normal Normal Relatively blonde fundus, no stigmata of retinitis or vasculitis. Possible SVPs although difficult to evaluate at bedside. Care Teams Diabetes Solutions Specialist Relationship Specialty Start Date End Date Kasi Moya MD [address] [place] [address] PCP - General 08/13/17 09/09/19 Edel Luz PA [address] [place] [address] PCP - General 09/10/19 09/20/19 Kasi Moya MD [address] [place] [address] PCP - General Internal Medicine 09/21/19 Martin Mccarthy MD [address] [place] [address] Referring Physician Transplant 09/09/18 documented as of this encounter
--- OUTSIDE RECORDS SUMMARY | 2025-03-01 19:08 | XMS_ITS | Encounter Summary ---
Author Organization [facility] Healthcare Address [address] [place] [address] Care Team Providers Care Transport Manager Name Role Phone Martin Mccarthy MD Unavailable [phone] Kasi Moya MD Primary Care Provider + Reason for Referral * Home Health (Urgent) - Pending Review Specialty Diagnoses / Procedures Referred By Bashir tucker Referred To Contact Home Health Services Diagnoses Closed fracture of right hip, initial encounter ([facility]) Colt Felix MD [facility] [address] [address] Phone: tel: fax: Referral ID Status Reason Start Date Expiration Date Visits Requested Visits Authorized [id number] Pending Review Specialty Services Required 03/01/2025 03/31/2026 1 1 Question Answer [facility] Home Health Primary disciplines requested: Nursing Home, Physical Therapy Secondary disciplines requested: Occupational Therapy Home Health Services Therapy to Eval/Tx Therapy instructions: Ortho rehab Requested Start of Care Date: 24-48 hours Physician to follow patient's care (the person listed here will be responsible for signing ongoing orders): Referring Provider I attest that I or another qualified licensed provider saw the patient 90 days prior to or 30 days post admission and this face to face encounter meets the necessary Home Health requirements. The face to face encounter occurred on (date): 02/21/2025 The encounter with the patient was in whole, or in part, for the following medical condition, which is the primary reason for home health care. (List medical condition): OPEN REDUCTION INTERNAL FIXATION RIGHT HIP - TROCHANTERIC NAIL I certify that, based on my findings, the following services are medically necessary skilled home health services: Therapy to Eval/Tx Clinical findings that support the need for home care: Frequent falls requiring safety eval/therapy I certify that my clinical findings support patient's homebound status. Homebound criteria met because: Abnormal gait/unsteady balance resulting in fall risk TESTING TECHNICIAN Reason for Visit * Reason Onset Date Comments Home health 02/28/2025 Encounter Details Date Type Department Care Team (Late st Contact Info) Description 02/28/2025 Telephone [facility] Orthopedics and Sports Medicine [address] [place] [address] [address] [place] [phone] Colt Felix MD [address] [place] [address] [address] [place] [address] Home health Social History Tobacco Use Types Packs/Day Years [...] week 02/21/2025 How often do you attend [facility] or spiritism services? More than 4 times per year 02/21/2025 Do you belong to any clubs o r organizations such as jew groups, unions, fraternal or athletic groups, or [...] any time in the past 12 m [facility], were you homeless or living in a [place] [facility] [place] facility (including now)? 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 Gender Identity Not on file Sexual Orientation Not on file documented as of this encounter Miscellaneous Notes * Telephone Encounter - Taylor Martínez MA - 03/01/2025 8:09 AM CST Order is in to [facility] and faxed the order TESTING TECHNICIAN * Telephone Encounter - Chelsy Isaacs - 02/28/2025 3:26 PM CST [facility] home health is unable to see patient and they were advised to call Dr Felix office to see if we can send a referral somewhere else TESTING TECHNICIAN documented in this encounter Plan of Treatment Scheduled Referrals Name Type Priority Associated Diagnoses Order Schedule Ambulatory referral to Home Health Outpatient Referral Routine Closed fracture of right hip, initial encounter (HCC) 1 Occurrences starting 03/01/2025 until 08/30/2025 documented as of this encounter Visit Diagnoses Diagnosis Closed fracture of right hip, initial encounter (HCC)- Primary documented in this encounter Care Teams Transport Manager Relationship Specialty Start Date End Date Kasi Moya MD [address] [place] [address] PCP - General Internal Medicine 09/21/19 Martin Mccarthy MD [address] [address] Referring Physician Transplant 09/09/18 documented as of this encounter
--- OUTSIDE RECORDS SUMMARY | 2025-03-01 19:08 | XMS_ITS | Encounter Summary ---
Author Organization [facility] Facility Care Team Providers Care Curriculum Coach Name Role Phone Kasi Moya MD Primary [...] MD Unavailable Judit Matthews LPN Unavailable [phone] Edel Luz Primary Care Provide r Kasi Moya MD Primary Care Provider + Encounter Details Date Type Department Care Team (Latest Contact Info) Description 06/05/2015 Orders Only [facility] ProviderRajendra MD [address] [place] [id number] Social History Tobacco Use Types Packs/Day Years Used Date Smoking Tobacco: Never Assessed Comments Unknown Sex and Gender Information Value Date Recorded Sex Assigned at Not on file 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 Historical Provider Final Res ult documented in this encounter Visit Diagnoses Not on filedocumented in this encounter Additional Health Concerns Infection Onset Date Last Indicated Resolved Time COVID: Suspected Comment:Removed after ID review. 07/11/2019 Norris Patterson 07/08/2019 07/08/2019 07/11/2019 9:38 AM C DT COVID: Suspected Comment:ID/IP Review - Isolation precautions have been cleared. Nehal March, BRANCH MECHANIC 07/09/2019 07/09/2019 07/09/2019 0 6:43 AM CDT COVID: Suspected 10/24/2022 10/24/2022 10/24/2022 10:49 AM CDT documented as of this encounter Care Teams Curriculum Coach Relationship Specialty Start Date End Date Kasi Moya MD [address] [place] [address] PCP - General 07/29/16 10/01/16 Tre Alvarado MD [address] [facility] [address] [place] [address] PCP - General 10/02/16 10/07/16 Kasi Moya MD [address] [place] [address] PCP - General 10/08/16 11/26/16 Tre Alvarado MD [address] [facility] [address] [place] [address] PCP - General 11/27/16 12/04/16 Kasi Moya MD [address] [place] [address] PCP - General 12/05/16 01/05/17 Tre Alvarado MD [address] [facility] [address] [place] [address] PCP - General 01/06/17 01/06/17 Kasi Moya MD [address] [place] [address] PCP - General 01/07/17 02/25/17 Tre Alvarado MD [address] [facility] [address] [place] [address] PCP - General 02/26/17 03/18/17 Kasi Moya MD [address] [place] [address] PCP - General 03/19/17 03/30/17 Tre Alvarado MD [address] [facility] [address] [place] [address] PCP - General 03/31/17 04/02/17 Kasi Moya MD [address] [place] [address] PCP - General 04/03/17 04/03/17 Tre Alvaraod MD [address] [facility] [address] [place] [address] PCP - General 04/04/17 04/07/17 Kasi Moya MD [address] [place] [address] PCP - General 04/08/17 07/03/17 Tre Alvarado MD [address] [facility] [address] [place] [address] PCP - General 07/04/17 08/12/17 Kasi Moya MD [address] [place] [address] PCP - General 08/13/17 09/09/19 Edel Luz PA [address] [place] [address] PCP - General 09/10/19 09/20/19 Kasi Moya MD [address] [place] [address] PCP - General Internal Medicine 09/21/19 Martin Mccarthy MD [id number] [place] [address] Referring Physician Transplant 09/09/18 Judit Matthews, DATABASE ADMINISTRATION PROJECT MANAGER [id number] [place] [address] Security Flex Utility Officer 07/12/19 07/12/19 documented as of this encounter
--- OUTSIDE RECORDS SUMMARY | 2025-03-01 19:08 | XMS_ITS | Encounter Summary ---
Author Organization [facility] Facility Care Team Providers Care Pattern Technician Name Role Phone Kasi Moya MD Primary [...] MD Unavailable Judit Matthews LPN Unavailable [phone] Edel Luz Primary Care Provide r Kasi Moya MD Primary Care Provider + Encounter Details Date Type Department Care Team (Latest Contact Info) Description 05/29/2015 Orders Only [facility] CLINCONV ProviderRajendra MD [address] [place] [address] Social History Tobacco Use Types Packs/Day Years Used Date Smoking Tobacco: Never Assessed Comments Unknown Sex and Gender Information Value Date Recorded Sex Assigned at Not on file 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 Historical Provider Final Res ult documented in this encounter Visit Diagnoses Not on filedocumented in this encounter Additional Health Concerns Infection Onset Date Last Indicated Resolved Time COVID: Suspected Comment:Removed after ID review. 07/11/2019 Norris Patterson 07/08/2019 07/08/2019 07/11/2019 9:38 AM C DT COVID: Suspected Comment:ID/IP Review - Isolation precautions have been cleared. Nehal March, PATIENT RESOURCE SPECIALIST 07/09/2019 07/09/2019 07/09/2019 0 6:43 AM CDT COVID: Suspected 10/24/2022 10/24/2022 10/24/2022 10:49 AM CDT documented as of this encounter Care Teams Pattern Technician Relationship Specialty Start Date End Date Kasi Moya MD [address] [place] [address] PCP - General 07/29/16 10/01/16 Tre Alvarado MD [address] [facility] [address] [place] [address] PCP - General 10/02/16 10/07/16 Kasi Moya MD [address] [place] [address] PCP - General 10/08/16 11/26/16 Tre Alvarado MD [address] [facility] [address] [place] [address] PCP - General 11/27/16 12/04/16 Kasi Moya MD [address] [place] [address] PCP - General 12/05/16 01/05/17 Tre Alvarado MD [address] [facility] [address] [place] [address] PCP - General 01/06/17 01/06/17 Kasi Moya MD [address] [place] [address] PCP - General 01/07/17 02/25/17 Tre Alvarado MD [address] [facility] [address] [place] [address] PCP - General 02/26/17 03/18/17 Kasi Moya MD [address] [place] [address] PCP - General 03/19/17 03/30/17 Tre Alvarado MD [address] [facility] [address] [place] [address] PCP - General 03/31/17 04/02/17 Kasi Moya MD [address] [place] [address] PCP - General 04/03/17 04/03/17 Tre Alvarado MD [address] [facility] [address] [place] [address] PCP - General 04/04/17 04/07/17 Kasi Moya MD [address] [place] [address] PCP - General 04/08/17 07/03/17 Tre Alvarado MD [address] [facility] [address] [place] [address] PCP - General 07/04/17 08/12/17 Kasi Moya MD [address] [place] [address] PCP - General 08/13/17 09/09/19 Edel Luz PA [address] [place] [address] PCP - General 09/10/19 09/20/19 Kasi Moya MD [address] [place] [address] PCP - General Internal Medicine 09/21/19 Martin Mccarthy MD [id number] [place] [address] Referring Physician Transplant 09/09/18 Judit Matthews, ESTATE PLANNING COUNSELOR [id number] [place] [address] Pump Servicer Helper 07/12/19 07/12/19 documented as of this encounter
--- OUTSIDE RECORDS SUMMARY | 2025-03-01 19:08 | XMS_ITS | Encounter Summary ---
Author Organization [facility] Healthcare Address [address] [place] [address] Care Team Providers Care Physician Liaison Name Role Phone Martin Mccarthy MD Unavailable [phone] Kasi Moya MD Primary Care Provider + Encounter Details Date Type Department Care Team (Late st Contact Info) Description 02/28/2025 Orders Only [facility] Medical Group Orthopedics and Sports Medicine [address] [place] [phone] Colt Felix MD [address] [place] [address] Closed fracture of right hip, initial encounter (HCC) (Primary Dx) Social History Tobacco Use Types Packs/Day Years [...] often do you attend chur ch or mosque services? More than 4 times per year 02/21/2025 Do you belong to any clubs o r organizations such as mandaeism groups, unions, fraternal or athletic groups, or [...] any time in the past 12 m [facility], were you homeless or living in a fci (including now)? 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
--- OUTSIDE RECORDS SUMMARY | 2025-03-01 19:08 | XMS_ITS ---
Author Organization [facility] Address [address] [place] [address] Care Team Providers Care Leather Cutter Name Role Phone Martin Mccarthy MD Unavailable [phone] Kasi Moya MD Primary Care Provider + Active Problems Problem Noted Date Diagnosed Date Closed displaced intertrochanteric fracture of r ight femur 02/21/2025 Assessment & Plan (02/26/2025 2:28 PM ACCOUNTS RECEIVABLE ACCOUNTANT): 02/22 POD day 1 after ORIF doing [...] given Assessment & Plan (02/25/2025 11:59 AM ACCOUNTS RECEIVABLE ACCOUNTANT): 12 POD day 1 after ORIF doing [...] warfarin Assessment & Plan (02/24/2025 12:58 PM ACCOUNTS RECEIVABLE ACCOUNTANT): 12 POD day 1 after ORIF doing [...] blood Assessment & Plan (02/23/2025 1:24 PM ACCOUNTS RECEIVABLE ACCOUNTANT): 12 POD day 1 after ORIF doing [...] hb Assessment & Plan (02/22/2025 2:43 PM ACCOUNTS RECEIVABLE ACCOUNTANT): 12 POD day 1 after ORIF doing [...] D Assessment & Plan (02/12/2024 9:59 AM ACCOUNTS RECEIVABLE ACCOUNTANT): Bone density in June of 2022 showed [...] jaw. Referred to bone health specialist at [facility] Other dysphagia 07/04/2022 Assessment & [...] benefit from thrombectomy. Posterior reversible encephalopathy syndrome (TN ES) 07/27/2019 Assessment & Plan (07/29/2019 2:35 [...] prn Assessment & Plan (02/05/2019 11:29 AM ACCOUNTS RECEIVABLE ACCOUNTANT): Will start Meclizine 25 mg q 6 hrs prn. 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 Assessment & Plan (07/24/2018 7:09 AM CDT): BMI Follow-up includes: exercise counseling. Acquired hypothyroidism 02/11/2018 Assessment & Plan (08/12/2024 7:44 AM CDT): Stable on levothyroxine Assessment & Plan (02/10/2024 12:20 PM ACCOUNTS RECEIVABLE ACCOUNTANT): Stable on levothyroxine Assessment & Plan (07/29/2023 [...] levothyroxine Assessment & Plan (05/31/2020 10:41 AM ACCOUNTS RECEIVABLE ACCOUNTANT): Stable on levothyroxine Assessment & Plan (11/22/2019 7:54 AM CDT): Stable on levothyroxine Assessment & Plan (02/05/2019 6:57 AM ACCOUNTS RECEIVABLE ACCOUNTANT): Stable on levothyroxine Assessment & Plan (07/22/2018 3:58 PM CDT): Stable on levothyroxine H/O head and neck radiation 01/30/2018 Chronic kidney disease, stage 3 07/19/2016 Assessment & Plan (08/12/2024 7:43 AM CDT): Stable. Follows with Dr. Watson Assessment & Plan (02/10/2024 12:19 PM ACCOUNTS RECEIVABLE ACCOUNTANT): Stable. Follows with Dr. Watson Assessment & [...] Mccarthy Assessment & Plan (05/31/2020 10:41 AM ACCOUNTS RECEIVABLE ACCOUNTANT): Stable. Follows with Dr. Mccarthy Assessment & Plan (11/22/2019 7:53 AM CDT): Joanne Assessment & Plan (07/27/2019 10:19 AM CDT): Stable. Creatinine appears at baseline. Assessment & Plan (02/05/2019 6:56 AM ACCOUNTS RECEIVABLE ACCOUNTANT): Joanne. Sees Dr. Mccarthy Assessment & Plan (07/22/2018 3:56 PM CDT): Stable. Sees Dr. Mccarthy Hypertensive kidney disease, stage 1-4 or unspecified chronic kidney disease 07/19/2016 Assessment & Plan (08/12/2024 7:43 AM CDT): Stable off medication Assessment & Plan (02/10/2024 12:19 PM ACCOUNTS RECEIVABLE ACCOUNTANT): Stable off medication Assessment & Plan (07/29/2023 3:34 PM CDT): Stable off medication Assessment & Plan (01/14/2023 4:21 PM CDT): Stable off medication Assessment & Plan (06/06/2021 8:37 AM CDT): Stable off medication Assessment & Plan (12/04/2020 12:26 PM CDT): Stable off medication Assessment & Plan (05/31/2020 10:40 AM ACCOUNTS RECEIVABLE ACCOUNTANT): Stable off medications Assessment & Plan (11/22/2019 7:53 AM CDT): Stable off medications. Assessment & Plan (07/27/2019 10:19 AM CDT): Stable on amlodipine. And carvedilol Assessment & Plan (02/05/2019 6:56 AM ACCOUNTS RECEIVABLE ACCOUNTANT): Well controlled without medication Assessment & Plan (07/22/2018 3:56 PM CDT): Well controlled without medication. skilled nursing current use of anticoagulant 7 Antiphospholipid antibody syndrome 06/21/2015 Assessment & Plan (08/12/2024 7:44 AM CDT): Stable. Requires lifelong anticoagulation with Coumadin Assessment & Plan (02/10/2024 12:19 PM ACCOUNTS RECEIVABLE ACCOUNTANT): Stable. Requires lifelong anticoagulation with Coumadin Assessment [...] Coumadin Assessment & Plan (05/31/2020 10:41 AM ACCOUNTS RECEIVABLE ACCOUNTANT): Stable. Requires lifelong anticoagulation with Coumadin Assessment [...] bridging. Assessment & Plan (02/05/2019 6:56 AM ACCOUNTS RECEIVABLE ACCOUNTANT): Continue on anticoagulation with Coumadin. Assessment & Plan (07/22/2018 3:57 PM CDT): Continue anticoagulation with Coumadin. Malignant neoplasm of tongue 01/11/2015 Assessment & Plan (08/12/2024 7:44 AM CDT): Stable. Under active surveillance with Dr. Vale and Oncology Assessment & Plan (02/10/2024 12:20 PM ACCOUNTS RECEIVABLE ACCOUNTANT): Stable. Under active surveillance with Dr. Vale [...] Oncology Assessment & Plan (05/31/2020 10:41 AM ACCOUNTS RECEIVABLE ACCOUNTANT): Stable. Under active surveillance with Dr. Vale and oncology Assessment & Plan (11/22/2019 7:55 AM CDT): Stable. Under active surveillance with Dr. Vale and Oncology. Assessment & Plan (07/27/2019 10:20 AM CDT): Stable. Under active surveillance with Dr. Vale and Oncology Assessment & Plan (02/05/2019 6:57 AM ACCOUNTS RECEIVABLE ACCOUNTANT): Stable. Active surveillance with oncology and Dr. Vale. Assessment & Plan (07/22/2018 3:58 PM CDT): Stable. Follows with oncology and Dr. Vale Current Treatment and Therapy Plans No current plan information found. Past Treatment and Therapy Plans No past plan information found. Lifetime Dose Tracking * Chemical Lifetime Dose Automatic Entry Manual Entr y Fluoro Time 8.2 minutes 8.2 minutes 0 minutes Air kerma at the reference point (Ka,r) 17 mGy 1 7 mGy 0 mGy DLP 12,407 mGycm 12,407 mGycm 0 mGycm Resolved Problems Problem Noted Date Diagnosed Date [...] 12/04/2020 Assessment & Plan (06/01/2020 9:03 AM ACCOUNTS RECEIVABLE ACCOUNTANT): Stable on Keppra Mass of right thigh [...] (07/12/2019): Added automatically from request for surgery [id number] Depression screening 07/24/2018 022 Assessment & Plan (07/24/2018 7:08 AM CDT): Negative for depression H/O tongue cancer 07/30/2017 07/27/2019 Assessment & Plan (02/05/2019 6:57 AM ACCOUNTS RECEIVABLE ACCOUNTANT): Stable. Follows with oncology and Dr. Vale Assessment & Plan (07/22/2018 3:58 PM CDT): Follows with oncology and Dr. Vale Risk for falls 07/19/2016 06/06/2021 Assessment & Plan (07/24/2018 7:09 AM CDT): Low risk for falls Hematoma of neck 10/12/2015 09/03/2019 Cervical lymphadenopathy 10/12/201502/2020 Hyperkalemia 11/28/2011 09/03/2019
--- OUTSIDE RECORDS SUMMARY | 2025-03-01 19:08 | XMS_ITS | Encounter Summary ---
Author Organization [facility] Healthcare Address [address] [place] [address] Care Team Providers Care Mathematics Teacher Name Role Phone Martin Mccarthy MD Unavailable [phone] Kasi Moya MD Primary Care Provider + Reason for Visit * Reason Onset Date Comments home PT 02/28/2025 Encounter Details Date Type Department Care Team (Late st Contact Info) Description 02/28/2025 Telephone [facility] Medical Group Orthopedics and Sports Medicine [address] [place] [phone] Colt Felix MD [address] [place] [phone] home PT Social History Tobacco Use Types Packs/Day Years [...] How often do you attend chur or buddhism services? More than 4 times per year 02/21/2025 Do you belong to any clubs o r organizations such as jewish groups, unions, fraternal or athletic groups, or [...] any time in the past 12 m [facility], were you homeless or living in a long-term (including now)? No 02/21/2025 [facility] Utilities Answer Date Recorded In the past 12 months has th [employer] electric, gas, oil, or water company threatened [...] on file Legal Sex Female 8:09 PM WOODENWARE ASSEMBLER Gender Identity Not on file Sexual Orientation Not on file documented as of this encounter Miscellaneous Notes * Telephone Encounter - Taylor Martínez MA - 02/28/2025 8:47 AM CST Spoke with pt, pt states she would like HH. I have put HH order in and let pt know to contact them to get set up since the order is in now ENWARE ASSEMBLER * Telephone Encounter - Chelsy Isaacs - 02/28/2025 8:25 AM CST [facility] Patient called because she is home bound and is unable to leave her house for her PT. She had surgery on 02/21. She stated that we need to call [facility] home care and let them know ENWARE ASSEMBLER documented in this encounter Plan of Treatment Not on file documented as of this encounter Visit Diagnoses Not on filedocumented in this encounter Care Teams Mathematics Teacher Relationship Specialty Start Date End Date Kasi Moya MD [address] [place] [address] PCP - General Internal Medicine 09/21/19 Martin Mccarthy MD [address] [place] [address] Referring Physician Transplant 09/09/18 documented as of this encounter
--- OUTSIDE RECORDS SUMMARY | 2025-03-01 19:08 | XMS_ITS | Encounter Summary ---
Author Organization [facility] Facility Care Team Providers Care Manager Home Healthcare Name Role Phone Kasi Moya MD Primary Care Provider + Tre Alvarado MD Primary Care Provider [phone] Kasi Moya MD Primary Care Provider + Martin Mccarthy MD Unavailable [phone] Judit Matthews LPN Unavailable [phone] Edel Luz Primary Care Provide r Kasi Moya MD Primary Care Provider + Encounter Details Date Type Department Care Team (Latest Contact Info) Description 05/14/2017 Orders Only [facility] CLINCONV ProviderRajendra MD [address] [place] [address] Social History Tobacco Use Types Packs/Day Years Used Date Smoking Tobacco: Never Comments Unknown Sex and Gender Information Value Date Recorded Sex Assigned at Not on file Legal Sex Female 8:09 PM ROUTE RETURNER Gender Identity Not on file Sexual Orientation Not on file documented as of this encounter Plan of Treatment Not on file documented as of this encounter Procedures Procedure Name Priority Date/Time Associated Diagnosis Comments SCAN - LABS 05/15/2017 12:00 AM ROUTE RETURNER documented in this encounter Results * SCAN - LABS (05/15/2017 12:00 AM ROUTE RETURNER) Narrative 05/15/2017 12:00 AM ROUTE RETURNER Ordered by an unspecified provider. us Historical Provider Final Res ult documented in this encounter Visit Diagnoses Not on filedocumented in this encounter Additional Health Concerns Infection Onset Date Last Indicated Resolved Time COVID: Suspected Comment:Removed after ID review. 07/11/2019 Carmelasurya Jarrell Yesenia 07/08/2019 07/08/2019 07/11/2019 9:38 AM C DT COVID: Suspected Comment:ID/IP Review - Isolation precautions have been cleared. Nehal March, DIRECTOR PRODUCT MANAGEMENT 07/09/2019 07/09/2019 07/09/2019 0 6:43 AM CDT COVID: Suspected 10/24/2022 10/24/2022 10/24/2022 10:49 AM CDT documented as of this encounter Care Teams Manager Home Healthcare Relationship Specialty Start Date End Date Kasi Moya MD [address] [place] [address] PCP - General 04/08/17 07/03/17 Tre Alvarado MD [address] [place] [address] PCP - General 07/04/17 08/12/17 Kasi Moya MD [address] [place] [address] PCP - General 08/13/17 09/09/19 Edel Luz PA [address] [place] [address] PCP - General 09/10/19 09/20/19 Kasi Moya MD [address] [place] [address] PCP - General Internal Medicine 09/21/19 Martin Mccarthy MD [id number] [place] [address] Referring Physician Transplant 09/09/18 Judit Matthews, INTERNATIONAL MANAGER [phone] [place] [address] Pss Delivery Professional 07/12/19 07/12/19 documented as of this encounter
== END 2025-03-01 17:33 | disposition home or self-care (01) ==
PROVIDERS: PCP Internal Medicine; Visit Provider Internal Medicine
DX: D68.62 Lupus anticoagulant syndrome (principal)
CPT/HCPCS: 36415; 85610